=== PATIENT | female | born 1950 | race Caucasian/White ===

== ENCOUNTER 2017-02-12 14:50 | Inpatient (IN) | payer MEDICARE ==
[~2017-02-12] VITALS: Ht 162.6 cm; Wt 70.4 kg
[2017-02-12 15:23] VITALS: BP 157/72; PULSE 91; RESP 18; TEMP 98.9; O2SAT 82
[2017-02-12] MEDS ORDERED: SODIUM CHLORIDE 0.9% FLUSH 10 ML FLUSH IVF PRN (15:45)
[2017-02-12] MEDS ORDERED: DAPT500P IV (15:49)
[2017-02-12] MEDS ORDERED: MAPA325T PO (15:49)
[2017-02-12] MEDS ORDERED: CEFE2INJ2 IV (15:49)
[2017-02-12] MEDS ORDERED: GABA600T PO (15:49)
[2017-02-12] MEDS ORDERED: FURO20TA PO (15:49)
[2017-02-12] MEDS ORDERED: ATOR40TA16 PO (15:49)
[2017-02-12] MEDS ORDERED: CIPR500T2 PO (15:49)
[2017-02-12] MEDS ORDERED: ASPI-516 CHEW (15:49)
[2017-02-12] MEDS ORDERED: AMLO5TAB2 PO (15:49)
[2017-02-12] MEDS ORDERED: CLOP75TA PO (15:49)
[2017-02-12] MEDS ORDERED: LEVEMIR SQ (15:53)
[2017-02-12] MEDS ORDERED: METO100T PO (15:53)
[2017-02-12] MEDS ORDERED: HYDR-3801 PO (15:53)
[2017-02-12] MEDS ORDERED: IPRASOL INH (15:53)
[2017-02-12] MEDS ORDERED: HUMALOG SQ (15:53)
[2017-02-12] MEDS ORDERED: RESP: ALBUTEROL 2.5 MG/IPRATROPIUM 0.5 MG NEB (SCH) NEB ONE (16:00)
[2017-02-12] MEDS ORDERED: INSULIN HUMAN REGULAR 1,000 UNITS/10 ML VIAL SQ ONE (16:15)
[2017-02-12 16:30] LABS: AUTOMATED NEUTROPHIL # 6.8 TH/MM3 (1.8-7.7); BASOPHIL # 0.1 TH/MM3 (0-0.2); BASOPHIL % 0.7 % (0.0-2.0); EOSINOPHIL # 0.4 TH/MM3 (0-0.4); EOSINOPHIL % 4.5 % (0.0-4.0); HEMATOCRIT 28.4 % (35.0-46.0); HEMO FLAGS DIFF FINAL; LYMPH % 7.9 % (9.0-44.0); LYMPHOCYTE # 0.7 TH/MM3 (1.0-4.8); MEAN CELL VOLUME 86.6 FL (80.0-100.0); MEAN CORPUSCULAR HEMOGLOBIN 27.1 PG (27.0-34.0); MEAN CORPUSCULAR HGB CONC 31.3 % (32.0-36.0); MONO % 9.6 % (0.0-8.0); NEUT % 77.3 % (16.0-70.0); PLATELET COUNT 189 TH/MM3 (150-450); RED BLOOD COUNT 3.28 MIL/MM3 (4.00-5.30); WHITE BLOOD COUNT 8.8 TH/MM3 (4.0-11.0)
--- NOTE | 2017-02-12 16:42 | PD ---
HPI Chief Complaint: Psychiatric Symptoms Time Seen by Provider: 15:00 Travel History International Travel<30 days: No Contact w/Intl Traveler<30days: No Traveled to known affect area: No History of Present Illness HPI 66-year-old female presents to the emergency room from [facility] via ambulance for evaluation of suicidal ideation. Patient is Martiniquais speaking and pairer was used. According to report, patient has had increasing depressed mood and suicidal ideation. Patient denies suicidal or homicidal ideation. Initially states she has been depressed because she misses her who 3 years ago. Patient then states her chief complaint is shortness of breath. She is noted to be 74% on room air on arrival. She has slight increased work of breathing. Reports mild nonproductive cough that has been ongoing for unspecified amount of time. States she has bilateral leg pain from chronic diabetic ulcers which are being treated with IV medications at her facility. She denies chest pain, abdominal pain, or any other symptoms at this time. Paperwork she presents with shows that she was just seen at another facility 6 days ago and had a complete workup for altered mental status. There are physician orders from the doctor at her assisted living facility that states she should come to [place] for a psych eval in order to manage her psychiatric medications. Patient's nursing facility was called and simply stated that she was sent to the emergency room for suicidal ideation. PFSH Past Medical History Anemia: Yes Depression: Yes Chest Pain: Yes Coronary Artery Disease: Yes Diabetes: Yes Patient Takes Glucophage: No Medical other: Yes (osteomyelitis) Musculoskeletal: Yes (charcot's joint r ankle) Tetanus Vaccination: Unknown ?: Not Past Surgical History Surgical History: Unable to Obtain Social History Alcohol Use: No Tobacco Use: No Substance Use: No Allergies-Medications (Allergen,Severity, Reaction): Coded Allergies: No Known Allergies (Unverified , 02/12/17) Reported Meds & Prescriptions Reported Meds & Active Scripts Active Reported Metoprolol Tartrate 100 Mg Tab 100 Mg PO DAILY Duoneb (Ipratropium-Albuterol Neb) 0.5-2.5 Mg/3 Ml Neb 1 Nebule INH Q8HR NEB Levemir Inj (Insulin Detemir) 1,000 unit/ 10 ML Vial 12 Units SQ HS Do not mix with any other Insulin. Hydralazine (Hydralazine HCl) 100 Mg Tab 100 Mg PO TID Take with meals Humalog Inj (Insulin Human Lispro) 1,000 Unit/10 Ml Vial 1-9 Units SQ ACHS Max dose at bedtime:( )units; sugars< 70,(0)units; sugars 150-199,(1)unit; sugars 200-249,(3)units; sugars 250-299,(5)units; sugars 300-349,(7)units; sugars more than 349,(9)units. Gabapentin 600 Mg Tab 600 Mg PO TID Furosemide 20 Mg Tab 20 Mg PO DAILY Cubicin Inj (Daptomycin) 500 Mg Bag 500 Mg IV Q24H Must dilute in appropriate IV Fluid prior to administration Clopidogrel (Clopidogrel Bisulfate) 75 Mg Tab 75 Mg PO DAILY Ciprofloxacin (Ciprofloxacin HCl) 500 Mg Tab 500 Mg PO BID Cefepime Inj (Cefepime HCl) 2 Gm/100 Ml Bagp 2 Gm IV Q12H Atorvastatin (Atorvastatin Calcium) 40 Mg Tab 40 Mg PO HS Aspirin 81 Mg Chew 81 Mg CHEW DAILY Amlodipine (Amlodipine Besylate) 5 Mg Tab 5 Mg PO DAILY Mapap (Acetaminophen) 325 Mg Tab 650 Mg PO Q4-6H PRN Review of Systems Except as stated in HPI: all other systems reviewed are Neg Physical Exam Narrative GENERAL: Well-nourished, ill-appearing, elderly female in no acute distress. Afebrile. Ambulatory. SKIN: Focused skin assessment warm/dry. Chronic foot ulcers on the plantar aspects of bilateral heels. HEAD: Normocephalic. EYES: No scleral icterus. No injection or drainage. NECK: Supple, trachea midline. No JVD or lymphadenopathy. CARDIOVASCULAR: Regular rate and rhythm without murmurs, gallops, or rubs. RESPIRATORY: Breath sounds equal bilaterally. No accessory muscle use. Distant lung sounds but no crackles, rales, wheezes, or rhonchi. Mild increased work of breathing. GASTROINTESTINAL: Abdomen soft, non-tender, nondistended. Data Data Last Documented VS Vital Signs Date Time Temp Pulse Resp B/P (MAP) Pulse Ox O2 Delivery O2 Flow Rate FiO2 02/12/17 17:30 89 14 156/78 (104) 98 Nasal Cannula 2.00 02/12/17 15:23 98.9 Orders Orders Complete Blood Count With Diff (02/12/17 15:44) Comprehensive Metabolic Panel (02/12/17 15:44) B-Type Natriuretic Peptide (02/12/17 15:44) Act Partial Throm Time (Ptt) (02/12/17 15:44) Prothrombin Time / Inr (Pt) (02/12/17 15:44) Ckmb (Isoenzyme) Profile (02/12/17 15:44) Troponin I (02/12/17 15:44) Arterial Blood Gas (Abg) (02/12/17 15:44) Blood Culture (02/12/17 15:44) Iv Access Insert/Monitor (02/12/17:44) Electrocardiogram (02/12/17 15:44) Ecg Monitoring (02/12/17 15:44) Oximetry (02/12/17:44) Oxygen Administration (02/12/17:44) Chest, Pa & Lat (02/12/17 15:44) Sodium Chloride 0.9% Flush (Ns Flush) (02/12/17 15:45) Lactic Acid (02/12/17 15:51) Albuterol-Ipratropium Neb (Duoneb Neb) (02/12/17 16:00) Insulin Human Regular Inj (Novolin R Inj (02/12/17 16:15) Ct Pulmonary Angiogram (02/12/17 16:10) Psych Screen (02/12/17 16:36) Iohexol 350 Inj (Omnipaque 350 Inj) (02/12/17 17:39) Furosemide Inj (Lasix Inj) (02/12/17 18:15) Labs Laboratory Tests Test 02/12/17 16:00 02/12/17 16:15 02/12/17 16:42 White Blood Count 8.8 TH/MM3 Red Blood Count 3.28 MIL/MM3 Hemoglobin 8.9 GM/DL Hematocrit 28.4 % Mean Corpuscular Volume 86.6 FL Mean Corpuscular Hemoglobin 27.1 PG Mean Corpuscular Hemoglobin Concent 31.3 % Red Cell Distribution Width 20.0 % Platelet Count 189 TH/MM3 Mean Platelet Volume 7.4 FL Neutrophils (%) (Auto) 77.3 % Lymphocytes (%) (Auto) 7.9 % Monocytes (%) (Auto) 9.6 % Eosinophils (%) (Auto) 4.5 % Basophils (%) (Auto) 0.7 % Neutrophils # (Auto) 6.8 TH/MM3 Lymphocytes # (Auto) 0.7 TH/MM3 Monocytes # (Auto) 0.8 TH/MM3 Eosinophils # (Auto) 0.4 TH/MM3 Basophils # (Auto) 0.1 TH/MM3 CBC Comment DIFF FINAL Differential Comment Prothrombin Time 12.1 SEC Prothromb Time International Ratio 1.1 RATIO Activated Partial Thromboplast Time 24.7 SEC Blood Urea Nitrogen 30 MG/DL Creatinine 1.11 MG/DL Random Glucose 343 MG/DL Total Protein 7.3 GM/DL Albumin 2.4 GM/DL Calcium Level 7.9 MG/DL Alkaline Phosphatase 72 U/L Aspartate Amino Transf (AST/SGOT) 22 U/L Alanine Aminotransferase (ALT/SGPT) 20 U/L Total Bilirubin 0.2 MG/DL Sodium Level 139 MEQ/L Potassium Level 3.8 MEQ/L Chloride Level 101 MEQ/L Carbon Dioxide Level 34.2 MEQ/L Anion Gap 4 MEQ/L Estimat Glomerular Filtration Rate 49 ML/MIN Total Creatine Kinase 53 U/L Troponin I LESS THAN 0.02 NG/ML B-Type Natriuretic Peptide 284 PG/ML Lactic Acid Level 0.9 mmol/L Blood Gas Puncture Site RT BRACHIAL Blood Gas Patient Temperature 98.6 Blood Gas HCO3 33 mmol/L Blood Gas Base Excess 7.3 mmol/L Blood Gas Oxygen Saturation 97 % Arterial Blood pH 7.35 Arterial Blood Partial Pressure CO2 62 mmHg Arterial Blood Partial Pressure O2 164 mmHG Arterial Blood Oxygen Content 12.3 Vol % Arterial Blood Carboxyhemoglobin 2.1 % Arterial Blood Methemoglobin 0.6 % Blood Gas Hemoglobin 8.8 G/DL Oxygen Delivery Device NASAL CANNULA Blood Gas Liter Flow 4 L/M MDM Medical Decision Making Medical Screen Exam Complete: Yes Emergency Medical Condition: Yes Medical Record Reviewed: Yes Differential Diagnosis Psychiatric, depression, influenza, pneumonia, pulmonary embolism Narrative Course 66-year-old female with multiple chronic medical problems including CHF, diabetes, PVD, CAD, and bilateral foot ulcers with osteomyelitis presents to the emergency room from her halfway facility for suicidal ideation. Patient is primarily Martiniquais speaking and pairer was used. Initially patient denied any suicidal or homicidal ideation. Facility was called to confirm reason for transfer and physician orders were found that the "psychological evaluation and treatment for stabilization a depressed mood. Psychiatric med management is required." Second order states "send to [facility] for psych eval." Patient's chief complaint is shortness of breath. Denies any chronic lung disease. Patient was noted to be 74% on room air with increased work of breathing. Lung sounds were distant without any crackles, rales, wheezes, or rhonchi. Patient was placed on 2 L of oxygen and oxygen came up to 97%. At this time shortness of breath workup was initiated. Shortly afterward, it was discovered the patient was admitted for 6 days for pneumonia and CHF exacerbation. She was treated for both and discharged. CBC shows anemia with hemoglobin of 8.9 which is slightly decreased from hemoglobin drawn on 02/05 that was 9.2. CMP is essentially unremarkable. BNP is elevated at 284 which is significantly decreased from previous of 4000 drawn on 02/05. Lactic acid normal. Troponin is less than 0.02. EKG shows sinus rhythm with a rate of 89 bpm, no ST changes. Vital signs as been stable. Chest x-ray shows moderate congestive failure. CT pulmonary angiogram shows no PE. CT pulmonary angiogram taken on 02/06 shows similar findings to the one today. She also had CT of the brain on 02/05 and 02/06 which were both negative. At this time I see no indication for readmission to the hospital. After breathing treatments, oxygen administration, and Lasix, patient appears much comfortable and is resting. Though she denies suicidal or homicidal ideation, psych eval was ordered per physician request. Patient is medically cleared for psychiatric evaluation at this time. Condition: Stable Nae Champion Feb 12, 2017 16:42
[2017-02-12 16:45] LABS: APTT (PATIENT) 24.7 SEC (24.3-30.1); INTERNATIONAL NORMALIZED RATIO 1.1 RATIO; PROTHROMBIN TIME - PATIENT 12.1 SEC (9.8-11.6)
[2017-02-12 16:50] LABS: BLOOD GAS BASE EXCESS 7.3 mmol/L (-2-2); BLOOD GAS CARBOXYHEMOGLOBIN 2.1 % (0-4); BLOOD GAS HCO3 33 mmol/L (22-26); BLOOD GAS METHEMOGLOBIN 0.6 % (0-2); BLOOD GAS O2 HGB SATURATION 97 % (90-100); BLOOD GAS OXYGEN CONTENT 12.3 Vol % (12.0-20.0); BLOOD GAS PCO2 62 mmHg (38-42); BLOOD GAS PO2 164 mmHG (61-120); BLOOD GAS TOTAL HGB 8.8 G/DL (12.0-16.0); CRITICAL VALUE YES; TEMP CORR TO 98.6
[2017-02-12 16:50] LABS: ALT (GPT) 20 U/L (10-53); ANION GAP 4 MEQ/L (5-15); AST (GOT) 22 U/L (15-37); BICARBONATE 34.2 MEQ/L (21.0-32.0); BLOOD UREA NITROGEN 30 MG/DL (7-18); CHLORIDE 101 MEQ/L (98-107); GLOMERULAR FILTRATION RATE 49 ML/MIN (>89); POTASSIUM 3.8 MEQ/L (3.5-5.1); SODIUM (NA) 139 MEQ/L (136-145)
[2017-02-12 16:51] LABS: DRAW SITE RT BRACHIAL; LITER FLOW 4 L/M; NUMBER OF ARTERIAL PUNCTURES 1; OXYGEN DEVICE NASAL CANNULA; STAT YES; ULNAR PULSE PRESENT
[2017-02-12 16:54] LABS: ALKALINE PHOSPHATASE 72 U/L (45-117); TOTAL BILIRUBIN ADULT 0.2 MG/DL (0.2-1.0)
[2017-02-12 16:59] VITALS: O2SAT 100
[2017-02-12 16:59] LABS: CREATINE KINASE 53 U/L (26-192)
--- NOTE | 2017-02-12 17:17 | RADRPT ---
EXAM DATE/TIME: 02/12/2017 17:08 [facility] COMPARISON: No previous studies available for comparison. INDICATIONS : Shortness of breath. MEDICAL HISTORY : Unobtainable. SURGICAL HISTORY : Unobtainable. ENCOUNTER: Initial ACUITY: 1 day PAIN SCORE: Non-responsive. LOCATION: chest FINDINGS: Sternal wires and previous bypass are noted. PICC line in good position. Heart is enlarged with mil d to moderate interstitial edema. The portion of the bony skeleton visualized is unremarkable. CONCLUSION: Moderate congestive failure. gA Del Toro MD FACR on February 12, 2017 at 17:14 Board Certified Radiologist. This report was verified electronically.
[2017-02-12 17:30] VITALS: BP 156/78; PULSE 89; RESP 14; O2SAT 98
[2017-02-12] MEDS ORDERED: IOHEXOL 350 MG/ML 10 ML VIAL (for RAD DIAG) IVCONTRAST ONE (17:39)
--- NOTE | 2017-02-12 17:58 | RADRPT ---
EXAM DATE/TIME: 02/12/2017 17:39 [facility] COMPARISON: No previous studies available for comparison. INDICATIONS : Embolism; Chest pain. IV CONTRAST: 75 cc Omnipaque 350 (iohexol) IV RADIATION DOSE: 23.00 CTDIvol (mGy) MEDICAL HISTORY : Charcots; Diabetes; Sucidal thoughts.Coronary artery disease. SURGICAL HISTORY : None. ENCOUNTER: Initial ACUITY: 1 day PAIN SCALE: 4/10 LOCATION: chest TECHNIQUE: Volumetric scanning of the chest was performed using a pulmonary embolism protocol MIP images were re constructed. Using automated exposure control and adjustment of the mA and/or kV according to patien t size, radiation dose was kept as low as reasonably achievable to obtain optimal diagnostic quality images. DICOM format image data is available electronically for review and comparison. Follow-up recommendations for detected pulmonary nodules are based at a minimum on nodule size and pa tient risk factors according to Fleischner Society Guidelines. FINDINGS: PULMONARY ARTERIES: No filling defects are seen in the pulmonary arteries through the segmental level. LUNGS: Bilateral consolidations. These are scattered throughout the upper and lower lobes. No significant co nsolidation involves the right upper lobe. No appreciable bronchiectasis. PLEURAE: Small right and tiny left pleural effusions. MEDIASTINUM: A heart mildly enlarged. Aorta and pulmonary arteries are normal in caliber. Significant coronary art patricia atherosclerotic calcifications. Scattered mild lymphadenopathy involving the anterior mediastinum . The largest lymph node is precarinal in location measuring 1.7 x 1.4 cm. MUSCULOSKELETAL: Within normal limits for patient age. MISCELLANEOUS: The visualized upper abdominal organs demonstrate no acute abnormality. CONCLUSION: 1. No pulmonary embolus. 2. Bilateral pulmonary infiltrates. 3. Mediastinal adenopathy likely reactive in nature. 4. Bilateral pleural effusions. 5. Cardiomegaly. 6. Significant coronary artery atherosclerotic calcifications. Uzair Duran Jr., MD on February 12, 2017 at 17:52 Board Certified Radiologist. This report was verified electronically.
[2017-02-12] MEDS ORDERED: FUROSEMIDE 40 MG/4 ML VIAL IV PUSH ONE (18:15)
[2017-02-12 19:16] VITALS: BP 118/57; PULSE 94; RESP 18; O2SAT 99
[2017-02-13 00:30] VITALS: BP 167/82; PULSE 80; RESP 16; O2SAT 100
[2017-02-13 04:37] VITALS: BP 165/82; PULSE 86; RESP 16; O2SAT 100
[2017-02-13 07:58] VITALS: BP 156/70; PULSE 79; RESP 23; O2SAT 99
[2017-02-13] MEDS ORDERED: ACETAMINOPHEN 325 MG TAB PO PRN (11:00)
[2017-02-13 11:15] VITALS: BP 160/73; PULSE 90; RESP 17; TEMP 98.3; O2SAT 96
--- NOTE | 2017-02-13 11:17 | HHI.HP ---
Provisional Diagnosis Admission Date [place]. Unspecified psychosis, dementia with behavioral disturbances, history of major depressive disorder [place] II. Deferred [place] III. Diabetes, CHF, cellulitis [place] IV. Multiple chronic medical conditions [place] V. 35 Certification of Person's Competence To Provide Express and Informed Consent I have personally examined Josefina Loza , a person being served at [facility] on, Feb 13, 2017 10:56. Express and informed consent means consent voluntarily given in writing, by a competent person, after sufficient explanation and disclosure of the subject matter involved to enable the person to make a knowing and willful decision without any element of force, fraud, deceit, duress, or other form of constraint or coercion. This person is 18 years of age or older, is not now known to be incompetent to consent to treatment with a guardian advocate, and does not have a health care surrogate or proxy currently making medical treatment decisions. I have found this person to be one of the following: [] Competent to provide express and informed consent, as defined above, for voluntary admission to this facility and is competent to provide express and informed consent for treatment. He/she has the consistent capacity to make well reasoned, willful, and knowing decisions concerning his or her medical or mental health treatment. The person fully and consistently understands the purpose of the admission for examination/placement and is fully capable of personally exercising all rights assured [place] [X] Incompetent to provide express and informed consent to voluntary admission, and this is incompetent to provide express and informed consent to treatment. The person must be transferred to involuntary status and a petition for a guardian advocate filed with the Circuit Court. [] Refusing to provide express and informed consent to voluntary admission but is competent to provide express and informed consent for treatment. The person must be discharged or transferred to involuntary status. Form shall be completed within 24 hours of a person's arrival at the receiving facility and filed in the clinical record of each person: 1. Admitted on a voluntary basis 2. Permitted to provide express and informed consent to his/her own treatment 3. Allowed to transfer from involuntary to voluntary status 4. Prior to permitting a person to consent to his or her own treatment after having been previously found incompetent to consent to treatment. History of Present Illness Capacity: Lacks Capacity HPI The patient is a 66-year-old [place] woman, domiciled in SNF [place], , supported by Social Security, with psychiatric history of schizophrenia, depression, no previous psychiatric hospitalizations, no previous suicidal attempts, she has been Zoloft in the past, extensive medical history of CHF, diabetes, hypertension, who presents to the emergency room from SNF via ambulance for evaluation of suicidal ideation. Patient is [place] Zeal[place] speaking only she was interviewed in primary language. According to report, patient has had increasing depressed mood and suicidal ideation. Patient denies suicidal or homicidal ideation. Initially states she has been depressed because she misses her who 3 years ago. Patient then states her chief complaint is shortness of breath. She is noted to be 74% on room air on arrival. She has slight increased work of breathing. Reports mild nonproductive cough that has been ongoing for unspecified amount of time. States she has bilateral leg pain from chronic diabetic ulcers which are being treated with IV medications at her facility. She denies chest pain, abdominal pain, or any other symptoms at this time. Paperwork she presents with shows that she was just seen at another facility 6 days ago and had a complete workup for altered mental status. There are physician orders from the doctor at her assisted living facility that states she should come to [facility] for a psych eval in order to manage her psychiatric medications. Patient's nursing facility was called and simply stated that she was sent to the emergency room for suicidal ideation. On psychiatric evaluation today the patient is found sleeping, but easily arousable. The patient states that she feels okay, she does not know the reason of her hospitalization. Patient is confused, disoriented, she says that she is in [facility] in her house. Patient is disoriented also in time, she says that the vice president media relations is Ilan. She reports good mood, she denies depressive symptoms, she denies anxiety, she denies suicidal and homicidal ideation, she denies visual and auditory hallucinations. Patient says that she is not crazy "my son is the one who is crazy, and my daughter is even more crazy". Patient denies the use of alcohol and illicit drugs. Collateral information from her son Pedrito, was obtained. He says that the problem with his mother is that she has been depressed in the last months, as been episodically endorsing suicidal ideation and becoming agitated and even physically aggressive in her group home. He says that since patient's about 2 years ago the patient has been experiencing episodic depression, with isolation, lack of motivation, poor sleep, and frequent suicidal ideation. He says that his mother baseline could be very manipulative he understand that sometimes she uses suicidal ideation in order to get attention. However, at the same time he is convinced that his mother is depressed and needs psychiatric attention. Review of Systems Constitutional: DENIES: Diaphoretic episodes, Fatigue, Fever, Weight gain, Weight loss, Chills, Dizziness, Change in appetite, Night Sweats Endocrine: DENIES: Abnorml menstrual pattern, Heat/cold intolerance, Polydipsia , Polyuria, Polyphagia Eyes: DENIES: Blurred vision, Diplopia, Eye inflammation, Eye pain, Vision loss , Photosensitivity, Double Vision Ears, nose, mouth, throat: DENIES: Tinnitus, Hearing loss, Vertigo, Nasal discharge, Oral lesions, Throat pain, Hoarseness, Ear Pain, Running Nose, Epistaxis, Sinus Pain, Toothache, Odynophagia Respiratory: DENIES: Apneas, Cough, Snoring, Wheezing, Hemoptysis, Sputum production, Shortness of breath Cardiovascular: DENIES: Chest pain, Palpitations, Syncope, Dyspnea on Exertion , PND, Lower Extremity Edema, Orthopnea, Claudication Gastrointestinal: DENIES: Abdominal pain, Black stools, Bloody stools, Constipation, Diarrhea, Nausea, Vomiting, Difficulty Swallowing, Anorexia Genitourinary: DENIES: Abnormal vaginal bleeding, Dysmenorrhea, Dyspareunia, Sexual dysfunction, Urinary frequency, Urinary incontinence, Urgency, Hematuria , Dysuria, Nocturia, Vaginal discharge Musculoskeletal: DENIES: Joint pain, Muscle aches, Stiffness, Joint Swelling, Back pain, Neck pain Integumentary: DENIES: Abnormal pigmentation, Pruritus, Rash, Nail changes, Breast masses, Breast skin changes, Nipple discharge Hematologic/lymphatic: DENIES: Bruising, Lymphadenopathy Immunologic/allergic: DENIES: Eczema, Urticaria Neurologic: DENIES: Abnormal gait, Headache, Localized weakness, Paresthesias, Seizures, Speech Problems, Tremor, Poor Balance Psychiatric: COMPLAINS OF: Confusion, DENIES: Anxiety, Mood changes, Depression , Hallucinations, Agitation, Suicidal Ideation, Homicidal Ideation, Delusions Past Psych History Violence risk - self (6 mos) Increased Substance Abuse History Drugs/Alcohol past 12 months Patient denies the use of alcohol and illicit drugs Past Family Social History Coded Allergies: No Known Allergies (Unverified , 02/12/17) Reported Medications Metoprolol Tartrate (Metoprolol Tartrate) 100 Mg Tab, 100 MG PO DAILY, #30 TAB 0 Refills 02/12/17 Ipratropium-Albuterol Neb (Duoneb) 0.5-2.5 Mg/3 Ml Neb, 1 NEBULE INH Q8HR NEB for Breathing Treatment, #90 NEBULE 0 Refills 02/12/17 Insulin Detemir Inj (Levemir Inj) 1,000 unit/ 10 ML Vial, 12 UNITS SQ HS for Blood Sugar Management, VIAL 0 Refills Do not mix with any other Insulin. 02/12/17 Hydralazine (Hydralazine) 100 Mg Tab, 100 MG PO TID for Blood Pressure Management, TAB 0 Refills Take with meals 02/12/17 Insulin Lispro (Human) Inj (Humalog Inj) 1,000 Unit/10 Ml Vial, 1-9 UNITS SQ ACHS for Blood Sugar Management, #1 VIAL 0 Refills Max dose at bedtime:( )units; sugars< 70,(0)units; sugars 150-199,(1)unit; sugars 200-249,(3)units; sugars 250-299,(5)units; sugars 300-349,(7)units; sugars more than 349,(9)units. 02/12/17 Gabapentin (Gabapentin) 600 Mg Tab, 600 MG PO TID, #90 TAB 0 Refills 02/12/17 Furosemide (Furosemide) 20 Mg Tab, 20 MG PO DAILY, #30 TAB 0 Refills 02/12/17 Daptomycin Inj (Cubicin Inj) 500 Mg Bag, 500 MG IV Q24H for Infection, BAG 0 Refills Must dilute in appropriate IV Fluid prior to administration 02/12/17 Clopidogrel (Clopidogrel) 75 Mg Tab, 75 MG PO DAILY for Blood Clot Prevention, # 30 TAB 0 Refills 02/12/17 Ciprofloxacin (Ciprofloxacin) 500 Mg Tab, 500 MG PO BID for Infection, TAB 0 Refills 02/12/17 Cefepime Inj (Cefepime Inj) 2 Gm/100 Ml Bagp, 2 GM IV Q12H for Infection, BAG 0 Refills 02/12/17 Atorvastatin (Atorvastatin) 40 Mg Tab, 40 MG PO HS for Cholesterol Management, # 30 TAB 0 Refills 02/12/17 Aspirin (Aspirin) 81 Mg Chew, 81 MG CHEW DAILY, TAB 0 Refills 02/12/17 Amlodipine (Amlodipine) 5 Mg Tab, 5 MG PO DAILY for Blood Pressure Management, # 30 TAB 0 Refills 02/12/17 Acetaminophen (Mapap) 325 Mg Tab, 650 MG PO Q4-6H Y for PAIN 1 TO 10 AND/OR AGITATION, TAB 0 Refills 02/12/17 Current Medications Medications (Trade) Dose Ordered Sig/Fátima Route Start Time Stop Time Status Last Admin (NS Flush) 2 ml UNSCH PRN IVF 02/12/17 15:45 (Tylenol) 650 mg Q12HR PRN PO 02/13/17 11:00 UNV (Norvasc) 5 mg DAILY PO 02/13/17 11:00 UNV (Aspirin Chew) 81 mg DAILY CHEW 02/13/17 11:00 UNV (Lipitor) 40 mg HS PO 02/13/17 21:00 UNV (Plavix) 75 mg DAILY PO 02/13/17 11:00 UNV (Neurontin) 600 mg TID PO 02/13/17 13:00 UNV (Apresoline) 100 mg TID PO 02/13/17 13:00 UNV (Lopressor) 100 mg DAILY PO 02/13/17 11:00 UNV Family Psych History Patient has a brother and a sister with bipolar disorder Social History Patient was born and raised in [place], she lives in a group home in [facility], she is , mother of 2 kids, supported by Social Security Physical Exam No withdrawal, no EPS, no tremors, no parkinsonism, no psychomotor agitation or retardation at this moment Vital Signs Vital Signs Date Time Temp Pulse Resp B/P (MAP) Pulse Ox O2 Delivery O2 Flow Rate FiO2 02/13/17 07:58 79 23 156/70 (98) 99 Nasal Cannula 2.00 02/12/17 15:23 98.9 I/O 02/13/17 02/13/17 02/14/17 08:00 16:00 00:00 Intake Total 480 ml Balance 480 ml Lab Results Test 02/12/17 16:00 02/12/17 16:15 02/12/17 16:42 White Blood Count 8.8 TH/MM3 Red Blood Count 3.28 MIL/MM3 Hemoglobin 8.9 GM/DL Hematocrit 28.4 % Mean Corpuscular Volume 86.6 FL Mean Corpuscular Hemoglobin 27.1 PG Mean Corpuscular Hemoglobin Concent 31.3 % Red Cell Distribution Width 20.0 % Platelet Count 189 TH/MM3 Mean Platelet Volume 7.4 FL Neutrophils (%) (Auto) 77.3 % Lymphocytes (%) (Auto) 7.9 % Monocytes (%) (Auto) 9.6 % Eosinophils (%) (Auto) 4.5 % Basophils (%) (Auto) 0.7 % Neutrophils # (Auto) 6.8 TH/MM3 Lymphocytes # (Auto) 0.7 TH/MM3 Monocytes # (Auto) 0.8 TH/MM3 Eosinophils # (Auto) 0.4 TH/MM3 Basophils # (Auto) 0.1 TH/MM3 CBC Comment DIFF FINAL Differential Comment Prothrombin Time 12.1 SEC Prothromb Time International Ratio 1.1 RATIO Activated Partial Thromboplast Time 24.7 SEC Blood Urea Nitrogen 30 MG/DL Creatinine 1.11 MG/DL Random Glucose 343 MG/DL Total Protein 7.3 GM/DL Albumin 2.4 GM/DL Calcium Level 7.9 MG/DL Alkaline Phosphatase 72 U/L Aspartate Amino Transf (AST/SGOT) 22 U/L Alanine Aminotransferase (ALT/SGPT) 20 U/L Total Bilirubin 0.2 MG/DL Sodium Level 139 MEQ/L Potassium Level 3.8 MEQ/L Chloride Level 101 MEQ/L Carbon Dioxide Level 34.2 MEQ/L Anion Gap 4 MEQ/L Estimat Glomerular Filtration Rate 49 ML/MIN Total Creatine Kinase 53 U/L Troponin I LESS THAN 0.02 NG/ML B-Type Natriuretic Peptide 284 PG/ML Lactic Acid Level 0.9 mmol/L Blood Gas Puncture Site RT BRACHIAL Blood Gas Patient Temperature 98.6 Blood Gas HCO3 33 mmol/L Blood Gas Base Excess 7.3 mmol/L Blood Gas Oxygen Saturation 97 % Arterial Blood pH 7.35 Arterial Blood Partial Pressure CO2 62 mmHg Arterial Blood Partial Pressure O2 164 mmHG Arterial Blood Oxygen Content 12.3 Vol % Arterial Blood Carboxyhemoglobin 2.1 % Arterial Blood Methemoglobin 0.6 % Blood Gas Hemoglobin 8.8 G/DL Oxygen Delivery Device NASAL CANNULA Blood Gas Liter Flow 4 L/M Date/Time Source Procedure Growth Status 02/12/17 16:15 Blood Peripheral Aerobic Blood Culture Pending Received 02/12/17 16:15 Blood Peripheral Anaerobic Blood Culture Pending Received Mental Status Examination Appearance: Appropriate Consciousness: Alert Orientation: Person Motor Activity: Normal gait Speech: Unremarkable Language: Adequate Fund of Knowledge: Adequate Attention and Concentration: Adequate Memory: Impaired Mood: Sad, Oppositional Affect: Irritable Thought Process & Associations: Loose associations, Disorganized Thought Content: Bizarre thinking Hallucination Type: None Delusion Type: None Suicidal Ideation: Yes Suicidal Plan: No Suicidal Intention: No Homicidal Ideation: No Homicidal Plan: No Homicidal Intention: No Insight: Adequate Judgment: Adequate Assessment & Plan Problem List: (1) Unspecified psychosis ICD Codes: F29 - Unspecified psychosis not due to a substance or known physiological condition Assessment & Plan: On psychiatric evaluation today the patient is no very cooperative, she is confused, disoriented, denying psychiatric symptoms, suicidal ideation, homicidal ideation, visual or auditory hallucinations. She is alert, disoriented in time and place, but no fluctuation of consciousness, no attention deficit present which is to be congruent with ongoing process of dementia. As per collateral information from her son the patient has been depressed, expressing suicidal ideation frequently, so having episodic and progressive agitation, disorganization, even aggressive behavior at her group home. As per ER report, patient has been talking to herself, internally stimulated, but no agitated or violent. Patient will be admitted in psychiatry for stabilization and safety. We'll start a low dose of Seroquel, 12.5 mg twice a day for psychosis and agitation. Will restart all her medical medications. We consulted medicine for follow-up of medical conditions, psychiatry for second opinion. Extensive support, motivation and psychoeducation provided. Assessment & Plan Estimated LOS: Cornelio No MD Feb 13, 2017 11:17
--- NOTE | 2017-02-13 12:37 | EKG ---
Date Performed: 02/12/2017 Time Performed: 16:26:53 PTAGE: 66 years EKG: Sinus rhythm NONSPECIFIC T-WAVE ABNORMALITY BORDERLINE ECG NO PREVIOUS TRACING DOCTOR: Manfred Vega Interpretating Date/Time 02/13/2017 12:35:30
[2017-02-13] MEDS: METOPROLOL TARTRATE 100 MG TAB PO SCH (12:54)
[2017-02-13] MEDS: ASPIRIN 81 MG CHEW TAB CHEW SCH (12:56)
[2017-02-13] MEDS: hydrALAZINE HCL 100 MG TAB PO SCH ×2 (12:57→18:50)
[2017-02-13] MEDS: amLODIPine BESYLATE 5 MG TAB PO SCH (12:57)
[2017-02-13] MEDS: CLOPIDOGREL 75 MG TAB PO SCH (12:57)
[2017-02-13] MEDS: GABAPENTIN 300 MG CAP PO SCH ×2 (12:58→18:50)
[2017-02-13 18:00] VITALS: BP 150/68; PULSE 90; RESP 17; TEMP 98.7; O2SAT 97
[2017-02-13] MEDS: ATORVASTATIN 40 MG TAB PO SCH (21:00)
[2017-02-14 06:17] VITALS: BP 141/67; PULSE 95; RESP 17; TEMP 98; O2SAT 95
[2017-02-14] MEDS: hydrALAZINE HCL 100 MG TAB PO SCH ×3 (10:00→18:13)
[2017-02-14] MEDS: METOPROLOL TARTRATE 100 MG TAB PO SCH (10:00)
[2017-02-14] MEDS: CLOPIDOGREL 75 MG TAB PO SCH (10:00)
[2017-02-14] MEDS: amLODIPine BESYLATE 5 MG TAB PO SCH (10:01)
[2017-02-14] MEDS: GABAPENTIN 300 MG CAP PO SCH ×3 (10:01→18:13)
[2017-02-14] MEDS: ASPIRIN 81 MG CHEW TAB CHEW SCH (10:01)
[2017-02-14] MEDS ORDERED: LEVOFLOXACIN 750 MG TAB PO ONE (14:00)
[2017-02-14] MEDS ORDERED: BENZONATATE 100 MG CAP PO PRN (14:00)
--- NOTE | 2017-02-14 15:31 | HHI.PYPN ---
Subjective Remarks This is a request for a second opinion, admission note was reviewed and I agree with the history. Today, pt says her SI have resolved but she remains depressed. Pt describes AH telling her to hurt herself that she is able to ignore. Orientation improved to X2. Behaving well on the unit. Mental Status Examination Appearance: Appropriate Consciousness: Alert Orientation: Person Motor Activity: Normal gait Speech: Unremarkable Language: Adequate Fund of Knowledge: Adequate Attention and Concentration: Adequate Memory: Impaired Mood: Sad, Oppositional Affect: Blunt Thought Process & Associations: Loose associations, Disorganized Thought Content: Bizarre thinking Hallucination Type: Auditory (to hurt herself) Delusion Type: None Suicidal Ideation: Yes Suicidal Plan: No Suicidal Intention: No Homicidal Ideation: No Homicidal Plan: No Homicidal Intention: No Insight: Adequate Judgment: Adequate Results Labs Date/Time Source Procedure Growth Status 02/12/17 16:15 Blood Peripheral Aerobic Blood Culture - Preliminary NO GROWTH IN 2 DAYS Resulted 02/12/17 16:15 Blood Peripheral Anaerobic Blood Culture - Preliminary NO GROWTH IN 2 DAYS Resulted Vitals/IOs Vital Signs Date Time Temp Pulse Resp B/P (MAP) Pulse Ox O2 Delivery O2 Flow Rate FiO2 02/14/17 06:17 98.0 95 17 141/67 (91) 95 02/13/17 07:58 Nasal Cannula 2.00 Intake and Output 02/14/17 02/14/17 02/15/17 08:00 16:00 00:00 Intake Total 120 ml Balance 120 ml Assessment & Plan Problem List: (1) Unspecified psychosis ICD Codes: F29 - Unspecified psychosis not due to a substance or known physiological condition Assessment & Plan Increase seroquel dosing. I agree with the first opinion to continue petition, criteria include acute psychosis Justification for Cont. Inpt. Pt would decompensate in a less restrictive setting Rubio Alfaro DO Feb 14, 2017 15:31
[2017-02-14] MEDS ORDERED: CEFEPIME 2000 MG VIAL IV SCH (17:00)
[2017-02-14] MEDS ORDERED: CEFEPIME 2000 MG/NS 100 ML IV SCH ×2 (17:00)
[2017-02-14] MEDS: RESP: ALBUTEROL 2.5 MG/IPRATROPIUM 0.5 MG NEB (SCH) NEB ×2 (17:37→20:55)
[2017-02-14 17:38] VITALS: O2SAT 98
[2017-02-14] MEDS ORDERED: DAPTOmycin 500 MG VIAL IV SCH (18:00)
[2017-02-14] MEDS ORDERED: DAPTOmycin INJ 500 MG in SODIUM CHLORIDE 0.9% INJ 100 ML IV SCH (18:00)
[2017-02-14] MEDS ORDERED: AZITHROMYCIN 250 MG TAB PO ONE (18:45)
--- NOTE | 2017-02-14 19:06 | PD.CONS ---
HPI Service [facility] Consult Requested By Primary Care Physician Blu Garcia M.D. Diagnoses: History of Present Illness Bulgarian-speaking hotel services supervisor used. 66-year-old female brought in from [facility] for evaluation of suicidal ideation. History limited but refusal to participate in half of questions. She reports a productive cough going on for several weeks. She reports shortness of breath, however says that it is secondary to anxiety. She denies any chest pain. She has bilateral diabetic ulcers on her feet which are returning with IV antibiotics daptomycin and Cipro to complete 02/19. Review of Systems Attempted but unable due to patient refusing. tells me she has already been asked these questions Past Family Social History Allergies: Coded Allergies: No Known Allergies (Unverified , 02/12/17) Past Medical History Charcot joint right ankle CAD with history of CABG in the past CHF Anemia Depression Diabetes mellitus Past Surgical History History of CABG 3 Reported Medications Reported Meds & Active Scripts Active Reported Metoprolol Tartrate 100 Mg Tab 100 Mg PO DAILY Duoneb (Ipratropium-Albuterol Neb) 0.5-2.5 Mg/3 Ml Neb 1 Nebule INH Q8HR NEB Levemir Inj (Insulin Detemir) 1,000 unit/ 10 ML Vial 12 Units SQ HS Do not mix with any other Insulin. Hydralazine (Hydralazine HCl) 100 Mg Tab 100 Mg PO TID Take with meals Humalog Inj (Insulin Human Lispro) 1,000 Unit/10 Ml Vial 1-9 Units SQ ACHS Max dose at bedtime:( )units; sugars< 70,(0)units; sugars 150-199,(1)unit; sugars 200-249,(3)units; sugars 250-299,(5)units; sugars 300-349,(7)units; sugars more than 349,(9)units. Gabapentin 600 Mg Tab 600 Mg PO TID Furosemide 20 Mg Tab 20 Mg PO DAILY Cubicin Inj (Daptomycin) 500 Mg Bag 500 Mg IV Q24H Must dilute in appropriate IV Fluid prior to administration Clopidogrel (Clopidogrel Bisulfate) 75 Mg Tab 75 Mg PO DAILY Ciprofloxacin (Ciprofloxacin HCl) 500 Mg Tab 500 Mg PO BID Cefepime Inj (Cefepime HCl) 2 Gm/100 Ml Bagp 2 Gm IV Q12H Atorvastatin (Atorvastatin Calcium) 40 Mg Tab 40 Mg PO HS Aspirin 81 Mg Chew 81 Mg CHEW DAILY Amlodipine (Amlodipine Besylate) 5 Mg Tab 5 Mg PO DAILY Mapap (Acetaminophen) 325 Mg Tab 650 Mg PO Q4-6H PRN Family History Patient refuses to answer Social History No history of alcohol, tobacco, illicit drug use. Physical Exam Vital Signs Vital Signs Date Time Temp Pulse Resp B/P (MAP) Pulse Ox O2 Delivery O2 Flow Rate FiO2 02/14/17 17:38 98 Nasal Cannula 2.00 02/14/17 06:17 98.0 95 17 141/67 (91) 95 Physical Exam GENERAL: This is a well-nourished, well-developed patient, in no apparent distress. Patient is disoriented SKIN: No rashes, ecchymoses or lesions. Cool and dry. HEAD: Atraumatic. Normocephalic. No temporal or scalp tenderness. EYES: Pupils equal round and reactive. Extraocular motions intact. No scleral icterus. No injection or drainage. ENT: Nose without bleeding, purulent drainage or septal hematoma. Throat without erythema, tonsillar hypertrophy or exudate. Uvula midline. Airway patent. NECK: Trachea midline. No JVD or lymphadenopathy. Supple, nontender, no meningeal signs. CARDIOVASCULAR: Regular rate and rhythm without murmurs, gallops, or rubs. RESPIRATORY: Clear to auscultation. Breath sounds equal bilaterally. No wheezes , rales, or rhonchi. GASTROINTESTINAL: Abdomen soft, non-tender, nondistended. No hepato-splenomegaly , or palpable masses. No guarding. MUSCULOSKELETAL: Extremities without clubbing, cyanosis. . No calf tenderness. Negative Homans sign bilaterally. What appears to be a stage IV right foot diabetic foot ulcer. Minimal surrounding erythema, however/suspected. Left foot with Charcot deformity, unstageable ulcer. No surrounding erythema. NEUROLOGICAL: Awake and alert. Cranial nerves II through XII intact. Motor and sensory grossly within normal limits. Five out of 5 muscle strength in all muscle groups. Normal speech. Laboratory Date/Time Source Procedure Growth Status 02/12/17 16:15 Blood Peripheral Aerobic Blood Culture - Preliminary NO GROWTH IN 2 DAYS Resulted 02/12/17 16:15 Blood Peripheral Anaerobic Blood Culture - Preliminary NO GROWTH IN 2 DAYS Resulted Result Diagram: 02/12/17 1600 02/12/17 [address] Angiography 02/12/17 1610 Signed Impressions: Service Date/Time: Sunday, February 12, 2017 17:39 - CONCLUSION: 1. No pulmonary embolus. 2. Bilateral pulmonary infiltrates. 3. Mediastinal adenopathy likely reactive in nature. 4. Bilateral pleural effusions. 5. Cardiomegaly. 6. Significant coronary artery atherosclerotic calcifications. Uzair Duran Jr., MD Chest X-Ray 02/12/17 1544 Signed Impressions: Service Date/Time: Sunday, February 12, 2017 17:08 - CONCLUSION: Moderate congestive failure. Ag Del Toro MD FACR Assessment and Plan Assessment and Plan //Atypical pneumonia. //Hypoxic respiratory failure. Pulse oximetry 82 on room air on admission. //Possible CHF exacerbation -With productive cough -CT pulmonary angiogram with mediastinal adenopathy, bilateral pulmonary infiltrates. Duo Nebs, Azithromycin. //Hypertension. //CAD status post CABG 3 //history of CHF. Blood pressure acceptable. Continue home medications. Continue aspirin and Plavix. Continue to monitor //Diabetes mellitus type 2. -Blood sugars acceptable. Start on insulin sliding scale, diabetic diet. //Diabetic neuropathy. Due to renal sufficiency, will decrease gabapentin dose. Continue to monitor. //Hyperlipidemia. Continue home medications. //Bilateral feet with diabetic ulcers. Right worse than left. Patient is to be continued on Cipro and daptomycin until 02/19. Requesting outside records. -Continue on Levaquin and daptomycin. //Anemia. Hemoglobin 8.9. Uncertain chronicity. No signs of bleeding. Reorder labs. //Renal insufficiency. Creatinine 1.1. GFR 49 on admission. Uncertain baseline. Requesting outside records. Discussed Condition With patient, nurse Ken Pickett MD Feb 14, 2017 19:06
--- NOTE | 2017-02-14 19:22 | RADRPT ---
EXAM DATE/TIME: 02/14/2017 18:58 [facility] COMPARISON: No previous studies available for comparison. INDICATIONS : Right foot swelling. MEDICAL HISTORY : Unobtainable SURGICAL HISTORY : Unobtainable ENCOUNTER: Initial ACUITY: 2 days PAIN SCORE: Non-responsive. LOCATION: Right sore on plantar surface. FINDINGS: 3 views of the right foot demonstrate undermineralization of the bones. There is less than optimal or ientation of the foot. The Lisfranc joint appears disrupted. No acute fracture is identified. There i s abnormal orientation of the talus and calcaneus. Diffuse soft tissue swelling is present with ulcer ation along the plantar aspect superficial to the hindfoot. There is mineralization/calcification wit hin the distal leg soft tissues. CONCLUSION: 1. There is ulceration along the plantar aspect of the foot. No erosion is appreciated to suggest ost eomyelitis by plain film imaging. 2. Lisfranc joint is not well-visualized but appears disrupted. The bones are undermineralized. Daniel Reyes MD on February 14, 2017 at 19:18 Board Certified Radiologist. This report was verified electronically.
[2017-02-14 20:59] VITALS: O2SAT 98
[2017-02-14] MEDS: INSULIN DETEMIR 100 UNITS/ML VIAL SQ SCH (21:00)
[2017-02-14] MEDS: ATORVASTATIN 40 MG TAB PO SCH (21:22)
[2017-02-14] MEDS: METOPROLOL TARTRATE 50 MG TAB PO SCH (21:23)
[2017-02-14 22:28] LABS: BASOPHIL % 0.4 % (0.0-2.0); EOSINOPHIL # 0.2 TH/MM3 (0-0.4); EOSINOPHIL % 2.4 % (0.0-4.0); HEMATOCRIT 27.6 % (35.0-46.0); HEMO FLAGS DIFF FINAL; LYMPH % 9.9 % (9.0-44.0); LYMPHOCYTE # 0.7 TH/MM3 (1.0-4.8); MEAN CELL VOLUME 86.6 FL (80.0-100.0); MEAN CORPUSCULAR HEMOGLOBIN 27.5 PG (27.0-34.0); MEAN CORPUSCULAR HGB CONC 31.8 % (32.0-36.0); MONO % 8.9 % (0.0-8.0); NEUT % 78.4 % (16.0-70.0); PLATELET COUNT 178 TH/MM3 (150-450); RED BLOOD COUNT 3.19 MIL/MM3 (4.00-5.30); RED CELL DISTRIBUTION WIDTH 19.4 % (11.6-17.2); WHITE BLOOD COUNT 7.6 TH/MM3 (4.0-11.0)
[2017-02-14 22:43] LABS: ALKALINE PHOSPHATASE 93 U/L (45-117); ALT (GPT) 21 U/L (10-53); ANION GAP 6 MEQ/L (5-15); AST (GOT) 18 U/L (15-37); BICARBONATE 33.4 MEQ/L (21.0-32.0); BLOOD UREA NITROGEN 29 MG/DL (7-18); CHLORIDE 99 MEQ/L (98-107); GLOMERULAR FILTRATION RATE 52 ML/MIN (>89); POTASSIUM 4.7 MEQ/L (3.5-5.1); SODIUM (NA) 138 MEQ/L (136-145); TOTAL BILIRUBIN ADULT 0.5 MG/DL (0.2-1.0)
[2017-02-14] MEDS: QUEtiapine FUMARATE 25 MG TAB PO SCH (22:50)
[2017-02-14] MEDS ORDERED: PILL SPLITTER OTHER PRN (23:00)
[2017-02-15] MEDS ORDERED: DAPTOmycin INJ 500 MG in SODIUM CHLORIDE 0.9% INJ 100 ML IV SCH ×2
[2017-02-15 06:23] VITALS: BP 160/73; PULSE 82; RESP 17; TEMP 98; O2SAT 93
[2017-02-15 06:55] LABS: ANION GAP 6 MEQ/L (5-15); BICARBONATE 32.8 MEQ/L (21.0-32.0); BLOOD UREA NITROGEN 27 MG/DL (7-18); CHLORIDE 100 MEQ/L (98-107); GLOMERULAR FILTRATION RATE 57 ML/MIN (>89); LDL CHOLESTEROL 41 MG/DL (0-99); POTASSIUM 4.5 MEQ/L (3.5-5.1); SODIUM (NA) 139 MEQ/L (136-145)
[2017-02-15] MEDS: ASPIRIN 81 MG CHEW TAB CHEW SCH (08:47)
[2017-02-15] MEDS: hydrALAZINE HCL 100 MG TAB PO SCH ×3 (08:47→16:36)
[2017-02-15] MEDS: CLOPIDOGREL 75 MG TAB PO SCH (08:48)
[2017-02-15] MEDS: QUEtiapine FUMARATE 25 MG TAB PO SCH ×2 (08:48→21:18)
[2017-02-15] MEDS: LEVOFLOXACIN 750 MG TAB PO SCH (08:48)
[2017-02-15] MEDS: amLODIPine BESYLATE 5 MG TAB PO SCH (08:48)
[2017-02-15] MEDS: AZITHROMYCIN 250 MG TAB PO SCH (08:48)
[2017-02-15] MEDS: METOPROLOL TARTRATE 50 MG TAB PO SCH ×2 (08:48→21:18)
[2017-02-15] MEDS: GABAPENTIN 300 MG CAP PO SCH ×3 (08:48→16:36)
[2017-02-15] MEDS: INSULIN DETEMIR 100 UNITS/ML VIAL SQ SCH ×2 (08:49→21:00)
[2017-02-15] MEDS ORDERED: FUROSEMIDE 20 MG TAB PO SCH (09:00)
--- NOTE | 2017-02-15 09:01 | PD.TTN ---
Patient Problems 1. Discharge planning 2. Medication compliance 3. Knowledge deficit 4. Lack of coping skills Progress Toward Goals Provider Present: Dr. Beka Muller Provider Input: Dr. Muller reported that the patient is a new admission. Nurse(s) Present: [facility] Counselors Present: RAGHAV Hood Psych Therapist Input: Counselor reported the patient is a new admission and I will conduct biopsychosocial assessment today. Group Spec/RT/OT/LIZARRAGA Present: Margarito Ibrahim OT Group Spec/RT/OT/LIZARRAGA Input: Patient is a new admission. Discharge Plan [facility] Documentation Scribe: RAGHAV Hood Date Resolved: Feb 15, 2017 Peyton Lees Feb 15, 2017 09:01
[2017-02-15] MEDS: RESP: ALBUTEROL 2.5 MG/IPRATROPIUM 0.5 MG NEB (SCH) NEB ×3 (09:23→22:10)
[2017-02-15 09:35] VITALS: O2SAT 96
--- NOTE | 2017-02-15 09:55 | PD.CONS ---
History of Present Illness Service Infectious Disease Consult Requested By Dr Deejay Pickett Reason for Consult Evaluate patient with R foot infection, not improving Primary Care Physician Blu Garcia M.D. Diagnoses: History of Present Illness Patient seen and examined. Records reviewed. Patient is not a good historian Patient is a 66-year-old female, came from the prison, brought to [facility], for psychiatric evaluation, suicidal ideation. In the prison patient was getting IV antibiotics. It looks like she was in the prison, and was getting IV Cubicin, and oral Cipro until February 05 when she was admitted at [facility] for evaluation of shortness of breath , and altered mental status. I have very limited records from that hospitalization, but she was discharge on February 11, and she was getting IV vancomycin with plans of completing a 14 day course. She has a PICC line in the right upper extremity. There was mention that she has chronic ulcer on her right foot, and it's unclear what kind of workup she had done for that ulcer, and whether there is evidence of osteomyelitis. Patient here at [facility] has been admitted in the psychiatric unit. The medical team had ask infectious disease evaluation for the right foot ulcer. She is currently on Cubicin and cefepime. The cefepime was just discontinued today. Plain film of the right foot did not show any evidence of osteomyelitis. CT of the chest showing some pulmonary infiltrates, and on reviewing her hospitalization at [facility] , her CT at that time had shown also pulmonary infiltrates, suggestive more of congestive heart failure, and there is no evidence of pulmonary embolism. She is currently afebrile. She has some pain on her foot. She looks short of breath at the time my exam. Infectious disease consultation has been requested to evaluate the patient for the right foot ulcer. Review of Systems Constitutional: DENIES: Fever, Chills Eyes: DENIES: Eye pain Ears, nose, mouth, throat: DENIES: Oral lesions, Throat pain, Sinus Pain Respiratory: COMPLAINS OF: Cough, Shortness of breath Cardiovascular: COMPLAINS OF: Dyspnea on Exertion, DENIES: Chest pain Gastrointestinal: DENIES: Abdominal pain, Diarrhea Neurologic: DENIES: Headache Psychiatric: COMPLAINS OF: Suicidal Ideation Past Family Social History Allergies: Coded Allergies: No Known Allergies (Unverified , 02/12/17) Past Medical History Charcot joint right foot Chronic ulcer R foot CAD with history of CABG in the past CHF Anemia Depression Diabetes mellitus Past Surgical History CABG Reported Medications I attest that I obtained, updated or reviewed the home and current medications. Reported Meds & Active Scripts Active Reported Metoprolol Tartrate 100 Mg Tab 100 Mg PO DAILY Duoneb (Ipratropium-Albuterol Neb) 0.5-2.5 Mg/3 Ml Neb 1 Nebule INH Q8HR NEB Levemir Inj (Insulin Detemir) 1,000 unit/ 10 ML Vial 12 Units SQ HS Do not mix with any other Insulin. Hydralazine (Hydralazine HCl) 100 Mg Tab 100 Mg PO TID Take with meals Humalog Inj (Insulin Human Lispro) 1,000 Unit/10 Ml Vial 1-9 Units SQ ACHS Max dose at bedtime:( )units; sugars< 70,(0)units; sugars 150-199,(1)unit; sugars 200-249,(3)units; sugars 250-299,(5)units; sugars 300-349,(7)units; sugars more than 349,(9)units. Gabapentin 600 Mg Tab 600 Mg PO TID Furosemide 20 Mg Tab 20 Mg PO DAILY Cubicin Inj (Daptomycin) 500 Mg Bag 500 Mg IV Q24H Must dilute in appropriate IV Fluid prior to administration Clopidogrel (Clopidogrel Bisulfate) 75 Mg Tab 75 Mg PO DAILY Ciprofloxacin (Ciprofloxacin HCl) 500 Mg Tab 500 Mg PO BID Cefepime Inj (Cefepime HCl) 2 Gm/100 Ml Bagp 2 Gm IV Q12H Atorvastatin (Atorvastatin Calcium) 40 Mg Tab 40 Mg PO HS Aspirin 81 Mg Chew 81 Mg CHEW DAILY Amlodipine (Amlodipine Besylate) 5 Mg Tab 5 Mg PO DAILY Mapap (Acetaminophen) 325 Mg Tab 650 Mg PO Q4-6H PRN Active Ordered Medications Current Medications Medications (Trade) Dose Ordered Sig/Fátima Route Start Time Stop Time Status Last Admin (NS Flush) 2 ml UNSCH PRN IVF 02/12/17 15:45 (Tylenol) 650 mg Q12HR PRN PO 02/13/17 11:00 (Norvasc) 5 mg DAILY PO 02/13/17 11:00 02/15/17 08:48 (Aspirin Chew) 81 mg DAILY CHEW 02/13/17 11:00 02/15/17 08:47 (Lipitor) 40 mg HS PO 02/13/17 21:00 02/14/17 21:22 (Plavix) 75 mg DAILY PO 02/13/17 11:00 02/15/17 08:48 (Apresoline) 100 mg TID PO 02/13/17 13:00 02/15/17 08:47 (Levaquin) 750 mg DAILY PO 02/15/17 09:00 02/15/17 08:48 (Tessalon) 100 mg TID PRN PO 02/14/17 14:00 (Neurontin) 300 mg TID PO 02/14/17 18:00 02/15/17 08:48 (Lopressor) 50 mg BID PO 02/14/17 21:00 02/15/17 08:48 (Duoneb Neb) 1 ampule Q6HR WHILE AWAKE NEB NEB 02/14/17 14:00 02/15/17 09:23 (Levemir Inj) 5 units Q12HR SQ 02/14/17 21:00 02/15/17 08:49 (Lasix) 20 mg DAILY PO 02/15/17 09:00 02/15/17 08:48 (SEROquel) 12.5 mg BID PO 02/14/17 21:00 02/15/17 08:48 (Zithromax) 250 mg DAILY PO 02/15/17 09:00 02/15/17 08:48 (Pill Splitter) 1 ea UNSCH PRN OTHER 02/14/17 23:00 Daptomycin 500 mg/ Sodium Chloride 100 ml @ 200 mls/hr Q24H IV 02/15/17 00:00 02/14/17 23:34 Family History Not known Social History No smoking No ETOH abuse No illicit drugs Came from [facility] Physical Exam Vital Signs Vital Signs Date Time Temp Pulse Resp B/P (MAP) Pulse Ox O2 Delivery O2 Flow Rate FiO2 02/15/17 09:35 96 Nasal Cannula 4.00 02/15/17 06:23 98.0 82 17 160/73 (102) 93 02/14/17 20:59 98 Nasal Cannula 2.00 02/14/17 17:38 98 Nasal Cannula 2.00 Physical Exam GENERAL: Patient is a well-nourished, well-developed female, awake and alert , looks dyspneic at rest SKIN: Cool And dry. No generalized rash, no ecchymoses and no evidence of embolic lesions. HEAD: Atraumatic. Normocephalic. No temporal wasting, or tenderness. EYES: Hendrix conjunctiva. No petechia or hemorrhage. Pupils equal, round and reactive to light. Extraocular movements full and intact. No scleral icterus. No injection or drainage. EARS, NOSE AND THROAT: Nose without bleeding or purulent nasal discharge. No sinus tenderness. Mucous membranes pink and moist. No oral lesions noted. No exudate. No oral thrush. NECK: Trachea midline. Supple and not tender, no meningeal signs CARDIOVASCULAR: Regular rate and rhythm. No murmurs, rubs or gallops heard. Sternotomy scar compatible with her surgical history. RESPIRATORY: Clear to auscultation. Breath sounds equal bilaterally. Rales at the bases. ABDOMEN: Soft, non-tender, nondistended. Bowel sounds present and normoactive. No guarding. No rebound. No organomegaly. EXTREMITIES: No clubbing, cyanosis. Has mild bilateral pedal edema. R foot , there is an ulcer on plantar aspect mid foot, it measures about 1.5 inch diameter, sclerotic border, some dark blood at base, with red tissue, no purulence, no odor, no surrounding redness. Seem to have possibly beginning Charcot deformity of R foot. L foot - there is a round area plantar aspect midfoot, but not open wound, no erythema and also has similar possibly beginning Charcot deformity. No joint effusion, has good ROM. No calf tenderness. Well perfused and warm. NEUROLOGICAL: Awake and alert. Cranial nerves grossly intact. Motor grossly within normal limits. PSYCHIATRIC: Normal affect, calm and cooperative. LINE: PICC RUE with no evidence of infection Laboratory Laboratory Tests Test 02/14/17 21:58 02/15/17 06:04 White Blood Count 7.6 Red Blood Count 3.19 Hemoglobin 8.8 Hematocrit 27.6 Mean Corpuscular Volume 86.6 Mean Corpuscular Hemoglobin 27.5 Mean Corpuscular Hemoglobin Concent 31.8 Red Cell Distribution Width 19.4 Platelet Count 178 Mean Platelet Volume 7.4 Neutrophils (%) (Auto) 78.4 Lymphocytes (%) (Auto) 9.9 Monocytes (%) (Auto) 8.9 Eosinophils (%) (Auto) 2.4 Basophils (%) (Auto) 0.4 Neutrophils # (Auto) 6.0 Lymphocytes # (Auto) 0.7 Monocytes # (Auto) 0.7 Eosinophils # (Auto) 0.2 Basophils # (Auto) 0.0 CBC Comment DIFF FINAL Differential Comment Blood Urea Nitrogen 29 27 Creatinine 1.05 0.97 Random Glucose 319 195 Total Protein 7.7 Albumin 2.6 Calcium Level 8.4 8.4 Alkaline Phosphatase 93 Aspartate Amino Transf (AST/SGOT) 18 Alanine Aminotransferase (ALT/SGPT) 21 Total Bilirubin 0.5 Sodium Level 138 139 Potassium Level 4.7 4.5 Chloride Level 99 100 Carbon Dioxide Level 33.4 32.8 Anion Gap 6 6 Estimat Glomerular Filtration Rate 52 57 Erythrocyte Sedimentation Rate 76 Triglycerides Level 63 Cholesterol Level 96 LDL Cholesterol 41 HDL Cholesterol 42.0 Cholesterol/HDL Ratio 2.28 Date/Time Source Procedure Growth Status 02/12/17 16:15 Blood Peripheral Aerobic Blood Culture - Preliminary NO GROWTH IN 2 DAYS Resulted 02/12/17 16:15 Blood Peripheral Anaerobic Blood Culture - Preliminary NO GROWTH IN 2 DAYS Resulted Result Diagram: 02/14/17 2158 02/15/17 0604 Imaging RADIOLOGY STUDIES/FILMS REVIEWED Foot X-Ray 02/14/17 0000 Signed Impressions: Service Date/Time: Tuesday, February 14, 2017 18:58 - CONCLUSION: 1. There is ulceration along the plantar aspect of the foot. No erosion is appreciated to suggest osteomyelitis by plain film imaging. 2. Lisfranc joint is not well-visualized but appears disrupted. The bones are undermineralized. Daniel Reyes MD CT Angiography 02/12/17 1610 Signed Impressions: Service Date/Time: Sunday, February 12, 2017 17:39 - CONCLUSION: 1. No pulmonary embolus. 2. Bilateral pulmonary infiltrates. 3. Mediastinal adenopathy likely reactive in nature. 4. Bilateral pleural effusions. 5. Cardiomegaly. 6. Significant coronary artery atherosclerotic calcifications. Uzair Duran Jr., MD Chest X-Ray 02/12/17 1544 Signed Impressions: Service Date/Time: Sunday, February 12, 2017 17:08 - CONCLUSION: Moderate congestive failure. Ag Del Toro MD FACR Assessment and Plan Assessment and Plan IMPRESSION R foot plantar ulcer, currently does not look infected, no cellulitis - ?result of work-up in [facility], per SNF records she was supposed to get IV vanco x 14 days - possibly begiining Charcot foot durga SOB, bilateral infiltrates, possibly CHF - was trated for PNA previously Suicidal ideation RECOMMENDATION Stop other Abx Restart IV vanco Wound care Get records from [facility] Podiatry to evaluate patient also Her R foot looks ok, no active infection seen on exam, prob had work-up in other hospital and if she is stable for D/C from psych and medicine, she can be D/C on the original plan of IV vanco per SNF and have her followup with her primary MD who has been treating her for her R foot wounds Thank you for this consultation Discussed Condition With D/W Yuli Stafford MD Feb 15, 2017 09:55
[2017-02-15] MEDS ORDERED: Vancomycin Consult Pharmacy 1 EA OTHER SCH (10:00)
[2017-02-15] MEDS ORDERED: VANCOMYCIN INJ 1,000 MG in SODIUM CHLOR 0.9% 250 ML INJ 250 ML IV ONE (10:00)
[2017-02-15] MEDS: SERTRALINE HCL 50 MG TAB PO SCH (13:30)
--- NOTE | 2017-02-15 15:13 | HHI.PYPN ---
Subjective Remarks Patient seen follow, chart reviewed. Patient is a 66-year-old [place]yan[place] woman, , unemployed, domicile with her son, with past psychiatric history of depression, dementia, schizophrenia as per chart, though psychiatric consultations, no suicide attempts with past medical history of CHF, DM, hypertension who was sent from her correction facility for increased depressive symptoms and suicidal ideation as well as confusion, disorientation, and auditory hallucinations to hurt herself. Patient was seen lying in hospital bed, cooperative. Patient states that she came to the hospital because of her infection in her foot. Patient is alert and oriented only to person, relies she is in hospital but unable to name the hospital nor the city, not oriented to date and states the president stated he states his Bill Il[place]. Patient states that she is currently feeling depressed because her prior had 3 months ago but as per chart and collateral patient's had 2-3 years ago. Patient reports having decreased sleep since passing of her , decreased appetite, energy, concentration and states that her mood has been "suffering"and that she has been having suicidal ideation "once in a while" is a passing her (last time being this morning. Patient denies any thoughts of wanting to end her life but has had thoughts of wishing not to be alive. Patient states that she misses her the other children because of her recent depression. Patient believes that she continue to live with her son at that her resistance level of her children and her grandchildren and great-grandchildren. Patient also states that she worries about her father who is a [place] when I spoke to him 3 years ago currently reports feeling "good", but continues to feel depressed, denies SI, HI, AVH or delusions at time of interview. Review of Systems Except as stated in HPI: all other systems reviewed are Neg Mental Status Examination Appearance: Appropriate Consciousness: Alert Orientation: Person Motor Activity: Normal gait Speech: Unremarkable Language: Adequate Fund of Knowledge: Adequate Attention and Concentration: Adequate Memory: Impaired Mood: Sad Affect: Blunt Thought Process & Associations: Loose associations, Linear Thought Content: Bizarre thinking Hallucination Type: Auditory (denies at this time) Delusion Type: None Suicidal Ideation: Yes (denies at this time) Suicidal Plan: No Suicidal Intention: No Homicidal Ideation: No Homicidal Plan: No Homicidal Intention: No Insight: Adequate Judgment: Adequate Results Labs Test 02/14/17 21:58 02/15/17 06:04 White Blood Count 7.6 TH/MM3 Red Blood Count 3.19 MIL/MM3 Hemoglobin 8.8 GM/DL Hematocrit 27.6 % Mean Corpuscular Volume 86.6 FL Mean Corpuscular Hemoglobin 27.5 PG Mean Corpuscular Hemoglobin Concent 31.8 % Red Cell Distribution Width 19.4 % Platelet Count 178 TH/MM3 Mean Platelet Volume 7.4 FL Neutrophils (%) (Auto) 78.4 % Lymphocytes (%) (Auto) 9.9 % Monocytes (%) (Auto) 8.9 % Eosinophils (%) (Auto) 2.4 % Basophils (%) (Auto) 0.4 % Neutrophils # (Auto) 6.0 TH/MM3 Lymphocytes # (Auto) 0.7 TH/MM3 Monocytes # (Auto) 0.7 TH/MM3 Eosinophils # (Auto) 0.2 TH/MM3 Basophils # (Auto) 0.0 TH/MM3 CBC Comment DIFF FINAL Differential Comment Blood Urea Nitrogen 29 MG/DL 27 MG/DL Creatinine 1.05 MG/DL 0.97 MG/DL Random Glucose 319 MG/DL 195 MG/DL Total Protein 7.7 GM/DL Albumin 2.6 GM/DL Calcium Level 8.4 MG/DL 8.4 MG/DL Alkaline Phosphatase 93 U/L Aspartate Amino Transf (AST/SGOT) 18 U/L Alanine Aminotransferase (ALT/SGPT) 21 U/L Total Bilirubin 0.5 MG/DL Sodium Level 138 MEQ/L 139 MEQ/L Potassium Level 4.7 MEQ/L 4.5 MEQ/L Chloride Level 99 MEQ/L 100 MEQ/L Carbon Dioxide Level 33.4 MEQ/L 32.8 MEQ/L Anion Gap 6 MEQ/L 6 MEQ/L Estimat Glomerular Filtration Rate 52 ML/MIN 57 ML/MIN Erythrocyte Sedimentation Rate 76 mm/hr Triglycerides Level 63 MG/DL Cholesterol Level 96 MG/DL LDL Cholesterol 41 MG/DL HDL Cholesterol 42.0 MG/DL Cholesterol/HDL Ratio 2.28 RATIO Date/Time Source Procedure Growth Status 02/12/17 16:15 Blood Peripheral Aerobic Blood Culture - Preliminary NO GROWTH IN 3 DAYS Resulted 02/12/17 16:15 Blood Peripheral Anaerobic Blood Culture - Preliminary NO GROWTH IN 3 DAYS Resulted Vitals/IOs Vital Signs Date Time Temp Pulse Resp B/P (MAP) Pulse Ox O2 Delivery O2 Flow Rate FiO2 02/15/17 09:35 96 Nasal Cannula 4.00 02/15/17 06:23 98.0 82 17 160/73 (102) Intake and Output 02/15/17 02/15/17 02/16/17 08:00 16:00 00:00 Intake Total 1080 ml Balance 1080 ml Assessment & Plan Problem List: (1) Unspecified psychosis ICD Codes: F29 - Unspecified psychosis not due to a substance or known physiological condition Assessment & Plan Patient noted to be confused, oriented only to person and place (hospital, not to city), not oriented to date. Patient continues to endorse depressive symptoms and thoughts of not wanting to be alive but denies any active thoughts of wanting to end her life. We'll start patient on sertraline 25 minutes by mouth daily for depression, continue quetiapine 12.5 mg by mouth twice a day for psychosis. Patient no longer endorsing any auditory hallucinations at this time. Recommendations as per primary medical team. Collateral pending from [facility]. Discharge planning in progress Justification for Cont. Inpt. At risk for further decompensation if at lower level of care Discharge Planning Patient to be discharged back to correction facility once psychiatrically stable. Hoang Muller MD Feb 15, 2017 15:12
[2017-02-15] MEDS ORDERED: GLUCAGON 1 MG/ML VIAL OTHER PRN (15:30)
[2017-02-15] MEDS ORDERED: DEXTROSE 50% IN WATER 50 ML VIAL(D50) IV PUSH PRN (15:30)
[2017-02-15 16:02] LABS: HEMOGLOBIN A1a 1.7 %; HEMOGLOBIN A1b 0.9 %; HEMOGLOBIN Ao 80.3 %; HEMOGLOBIN F 1.5 %; HEMOGLOBIN P3 6.6 %
[2017-02-15] MEDS: INSULIN ASPART SUPPLEMENTAL SCALE SQ SCH ×2 (16:36→21:20)
[2017-02-15 18:08] VITALS: BP 161/85; PULSE 83; RESP 17; TEMP 97.8; O2SAT 94
--- NOTE | 2017-02-15 18:23 | HHI.PR ---
Subjective Remarks Patient seen using filter cleaner today. Says she is feeling all right. Has no overt complaints. Denies any chest pain or shortness of breath. Denies any nausea or vomiting. Denies any pain. Objective Vital Signs Date Time Temp Pulse Resp B/P (MAP) Pulse Ox O2 Delivery O2 Flow Rate FiO2 02/15/17 18:08 97.8 83 17 161/85 (110) 94 02/15/17 09:35 96 Nasal Cannula 4.00 02/15/17 09:30 Nasal Cannula 3.50 02/15/17 06:23 98.0 82 17 160/73 (102) 93 02/14/17 20:59 98 Nasal Cannula 2.00 I/O 02/14/17 02/14/17 02/14/17 02/15/17 02/15/17 02/15/17 07:00 15:00 23:00 07:00 15:00 23:00 Intake Total 120 ml 840 ml 1080 ml Balance 120 ml 840 ml 1080 ml Intake Oral 120 ml 840 ml 1080 ml # Voids 1 5 1 # Bowel Movements 1 Result Diagram: 02/14/17215702/15/17 0604 Objective Remarks GENERAL: appears comfortable. On 2 L oxygen. SKIN: Warm and dry. HEAD: Normocephalic. EYES: No scleral icterus. No injection or drainage. NECK: Supple, trachea midline. No JVD or lymphadenopathy. CARDIOVASCULAR: Regular rate and rhythm without murmurs, gallops, or rubs. RESPIRATORY: Breath sounds equal bilaterally. No accessory muscle use. GASTROINTESTINAL: Abdomen soft, non-tender, nondistended. MUSCULOSKELETAL: No cyanosis, or edema. BACK: Nontender without obvious deformity. No CVA tenderness. A/P Assessment and Plan //Atypical pneumonia. //Hypoxic respiratory failure. Pulse oximetry 82 on room air on admission. //Possible CHF exacerbation -With productive cough -CT pulmonary angiogram with mediastinal adenopathy, bilateral pulmonary infiltrates. Duo Nebs, Azithromycin. Continue diet with 1800 mL fluid restriction. //Hypertension. //CAD status post CABG 3 //history of CHF. Blood pressure acceptable. Continue home medications. Continue aspirin and Plavix. Continue to monitor. = BNP 284 on admission. Echocardiogram pending. Continue fluid restrictions. //Diabetes mellitus type 2. -Blood sugars elevated. Insulin sliding scale added. Continue diabetic diet. continue Levemir.. //Diabetic neuropathy. Due to renal sufficiency, will decrease gabapentin dose. Continue to monitor. //Hyperlipidemia. Continue home medications. //Bilateral feet with diabetic ulcers. Right worse than left. Patient is to be continued on Cipro and daptomycin until 02/19. Requesting outside records, still pending. -ESR 76. =Infectious disease consult at. Continue on vancomycin as per infectious disease. Appreciate assistance = Podiatry consulted follow-up recommendations. //Anemia. Hemoglobin 8.9. Uncertain chronicity. No signs of bleeding. Reorder labs. //Renal insufficiency. Creatinine 1.1. On admission. GFR 49 on admission. Uncertain baseline. = Creatinine 0.97. Outside records still pending. Ken Pickett MD Feb 15, 2017 18:23
[2017-02-15] MEDS: ATORVASTATIN 40 MG TAB PO SCH (21:18)
[2017-02-15 22:10] VITALS: O2SAT 94
--- NOTE | 2017-02-15 22:14 | PD.CONS ---
History of Present Illness Service Podiatry Consult Requested By Reason for Consult R foot ulcer, nonhealing Primary Care Physician Blu Garcia M.D. Diagnoses: History of Present Illness Patient seen and examined. Records reviewed. Patient is not a good historian Relying strictly upon medical record. Patient has long history of ulcerations to bilateral feet. L seems to be healed with R nonhealing. She was apparently in nursing facility and has been on IV antibiotics for the ulceration/infection. She has had negative XR for R foot, but no MRI that I can find. No idea how long the ulceration has been present, but appears chronic. Past Family Social History Allergies: Coded Allergies: No Known Allergies (Unverified , 02/12/17) Past Medical History Charcot joint right ankle CAD with history of CABG in the past CHF Anemia Depression Diabetes mellitus Past Surgical History History of CABG 3 Active Ordered Medications Current Medications Medications (Trade) Dose Ordered Sig/Fátima Route Start Time Stop Time Status Last Admin (NS Flush) 2 ml UNSCH PRN IVF 02/12/17 15:45 (Tylenol) 650 mg Q12HR PRN PO 02/13/17 11:00 (Norvasc) 5 mg DAILY PO 02/13/17 11:00 02/15/17 08:48 (Aspirin Chew) 81 mg DAILY CHEW 02/13/17 11:00 02/15/17 08:47 (Lipitor) 40 mg HS PO 02/13/17 21:00 02/15/17 21:18 (Plavix) 75 mg DAILY PO 02/13/17 11:00 02/15/17 08:48 (Apresoline) 100 mg TID PO 02/13/17 13:00 02/15/17 16:36 (Levaquin) 750 mg DAILY PO 02/15/17 09:00 02/15/17 08:48 (Tessalon) 100 mg TID PRN PO 02/14/17 14:00 (Neurontin) 300 mg TID PO 02/14/17 18:00 02/15/17 16:36 (Lopressor) 50 mg BID PO 02/14/17 21:00 02/15/17 21:18 (Duoneb Neb) 1 ampule Q6HR WHILE AWAKE NEB NEB 02/14/17 14:00 02/15/17 13:14 (Lasix) 20 mg DAILY PO 02/15/17 09:00 02/15/17 08:48 (SEROquel) 12.5 mg BID PO 02/14/17 21:00 02/15/17 21:18 (Zithromax) 250 mg DAILY PO 02/15/17 09:00 02/15/17 08:48 (Pill Splitter) 1 ea UNSCH PRN OTHER 02/14/17 23:00 Pharmacy Profile Note 0 ml @ 0 mls/hr UNSCH OTHER 02/15/17 10:00 Vancomycin HCl 1250 mg/Sodium Chloride 262.5 ml @ 250 mls/hr Q24H IV 02/15/17 23:00 Miscellaneous Information SPECIFIC LAB TO BE [facility]... ONCE ONCE .XX 02/18/17 22:45 02/18/17 22:46 (Zoloft) 25 mg DAILY PO 02/15/17 13:30 02/15/17 13:30 (NovoLOG SUPPLEMENTAL SCALE) 1 ACHS SLIDING SCALE SQ 02/15/17 17:00 02/15/17 21:20 (D50w (Vial) Inj) 50 ml UNSCH PRN IV PUSH 02/15/17 15:30 (Glucagon Inj) 1 mg UNSCH PRN OTHER 02/15/17 15:30 (Levemir Inj) 6 units Q12HR SQ 02/15/17 21:00 02/15/17 21:00 Physical Exam Vital Signs Vital Signs Date Time Temp Pulse Resp B/P (MAP) Pulse Ox O2 Delivery O2 Flow Rate FiO2 02/15/17 18:08 97.8 83 17 161/85 (110) 94 02/15/17 18:00 94 Nasal Cannula 4.00 02/15/17 09:35 96 Nasal Cannula 4.00 02/15/17 09:30 Nasal Cannula 3.50 02/15/17 06:23 98.0 82 17 160/73 (102) 93 Physical Exam Rocker bottom deformity to bilateral feet. There is plantar midfoot ulceration R foot with hyperkeratotic rim and thick serous drainage. No erythema, no edema. No purulence noted. Appears chronic. Does not appear painful. Suspect peripheral neuropathy present due to charcot changes and lack of pain. Laboratory Laboratory Tests Test 02/15/17 06:04 Erythrocyte Sedimentation Rate 76 Blood Urea Nitrogen 27 Creatinine 0.97 Random Glucose 195 Calcium Level 8.4 Sodium Level 139 Potassium Level 4.5 Chloride Level 100 Carbon Dioxide Level 32.8 Anion Gap 6 Estimat Glomerular Filtration Rate 57 Hemoglobin A1c 7.4 Triglycerides Level 63 Cholesterol Level 96 LDL Cholesterol 41 HDL Cholesterol 42.0 Cholesterol/HDL Ratio 2.28 Date/Time Source Procedure Growth Status 02/12/17 16:15 Blood Peripheral Aerobic Blood Culture - Preliminary NO GROWTH IN 3 DAYS Resulted 02/12/17 16:15 Blood Peripheral Anaerobic Blood Culture - Preliminary NO GROWTH IN 3 DAYS Resulted Result Diagram: 02/14/17 2158 02/15/17 0604 Imaging Last 72 hours Impressions Foot X-Ray 02/14/17 0000 Signed Impressions: Service Date/Time: Tuesday, February 14, 2017 18:58 - CONCLUSION: 1. There is ulceration along the plantar aspect of the foot. No erosion is appreciated to suggest osteomyelitis by plain film imaging. 2. Lisfranc joint is not well-visualized but appears disrupted. The bones are undermineralized. Daniel Reyes MD Ordering MRI R foot with/without, pending Assessment and Plan Assessment and Plan R diabetic foot ulceration, chronic Ordering MRI to further evaluate R foot. Continue dressing as ordered in meantime. Eric Nagel DPM Feb 15, 2017 22:14
[2017-02-15] MEDS ORDERED: VANCOMYCIN INJ 1,250 MG in SODIUM CHLOR 0.9% 250 ML INJ 250 ML IV SCH (23:00)
[2017-02-16 05:55] VITALS: BP 141/82; PULSE 83; RESP 17; TEMP 98; O2SAT 95
[2017-02-16] MEDS: INSULIN ASPART SUPPLEMENTAL SCALE SQ SCH ×2 (07:27→11:01)
[2017-02-16 08:00] VITALS: BP 164/80; PULSE 88; RESP 25; TEMP 98.2; O2SAT 97
[2017-02-16] MEDS: amLODIPine BESYLATE 5 MG TAB PO SCH (08:34)
[2017-02-16] MEDS: ASPIRIN 81 MG CHEW TAB CHEW SCH (08:34)
[2017-02-16] MEDS: LEVOFLOXACIN 750 MG TAB PO SCH (08:34)
[2017-02-16] MEDS: METOPROLOL TARTRATE 50 MG TAB PO SCH (08:34)
[2017-02-16] MEDS: GABAPENTIN 300 MG CAP PO SCH ×2 (08:34→13:00)
[2017-02-16] MEDS: hydrALAZINE HCL 100 MG TAB PO SCH ×2 (08:34→13:00)
[2017-02-16] MEDS: QUEtiapine FUMARATE 25 MG TAB PO SCH (08:35)
[2017-02-16] MEDS: INSULIN DETEMIR 100 UNITS/ML VIAL SQ SCH (08:35)
[2017-02-16] MEDS: AZITHROMYCIN 250 MG TAB PO SCH (08:35)
[2017-02-16] MEDS: CLOPIDOGREL 75 MG TAB PO SCH (08:35)
[2017-02-16] MEDS: SERTRALINE HCL 50 MG TAB PO SCH (08:35)
[2017-02-16] MEDS ORDERED: guaiFENesin E.R. 600 MG TAB PO SCH (09:00)
[2017-02-16] MEDS ORDERED: FUROSEMIDE 40 MG/4 ML VIAL IV PUSH SCH ×2 (09:00→21:00)
--- NOTE | 2017-02-16 09:02 | HHI.PYPN ---
Subjective Remarks Patient seen follow, chart review. Patient found lying in hospital bed, cooperative today while eating her breakfast. Patient states that she had difficulty sleeping last evening and she felt more shortness of breath and states that she feels she needs more oxygen flow. Patient reports that she is eating and drinking well with no difficulty with bowel movement. Patient states that her mood has been "calm" although still continues to feel sad and she states she misses her father and has not talked to her son recently. She denies any perceptual disturbances such as auditory hallucinations and states the last time she had experienced it was 2 days ago. Mental Status Examination Appearance: Appropriate, Other (patient noted with increased swelling of her left upper extremity) Consciousness: Alert Orientation: Person Motor Activity: Normal gait Speech: Unremarkable Language: Adequate Fund of Knowledge: Adequate Attention and Concentration: Adequate Memory: Impaired Mood: Sad (less so today) Affect: Appropriate Thought Process & Associations: Logical, Linear Thought Content: Appropriate Hallucination Type: None Delusion Type: None Suicidal Ideation: No Suicidal Plan: No Suicidal Intention: No Homicidal Ideation: No Homicidal Plan: No Homicidal Intention: No Insight: Adequate Judgment: Adequate Results Labs Date/Time Source Procedure Growth Status 02/12/17 16:15 Blood Peripheral Aerobic Blood Culture - Preliminary NO GROWTH IN 3 DAYS Resulted 02/12/17 16:15 Blood Peripheral Anaerobic Blood Culture - Preliminary NO GROWTH IN 3 DAYS Resulted Vitals/IOs Vital Signs Date Time Temp Pulse Resp B/P (MAP) Pulse Ox O2 Delivery O2 Flow Rate FiO2 02/16/17 05:55 98.0 83 17 141/82 (101) 95 02/15/17 22:10 Nasal Cannula 4.00 Intake and Output 02/16/17 02/16/17 02/17/17 08:00 16:00 00:00 Intake Total 220 ml Balance 220 ml Assessment & Plan Problem List: (1) Unspecified psychosis ICD Codes: F29 - Unspecified psychosis not due to a substance or known physiological condition Assessment & Plan Patient at this time to do with improved mood, although continues report feeling depressed due to missing her son about her father, continues to be alert and oriented only to person and place (hospital), patient denies any suicidal ideations at this time reports last time of having per social service was 2 days ago. Patient tolerating medications well but noted to have increased shortness of breath the likely worsening of CHF which medical team is continually managing at this time. Recommendations as per primary medical team. Discharge planning in progress, collateral information pending from son. Justification for Cont. Inpt. At risk for further decompensation if at lower level of care Discharge Planning Patients or return back to her assisted living facility once medically and psychiatrically cleared. Hoang Muller MD Feb 16, 2017 09:02
[2017-02-16 09:15] LABS: AUTOMATED NEUTROPHIL # 4.8 TH/MM3 (1.8-7.7); BASOPHIL % 0.5 % (0.0-2.0); EOSINOPHIL # 0.1 TH/MM3 (0-0.4); EOSINOPHIL % 2.1 % (0.0-4.0); HEMATOCRIT 26.5 % (35.0-46.0); HEMO FLAGS DIFF FINAL; LYMPH % 14.7 % (9.0-44.0); MEAN CELL VOLUME 85.9 FL (80.0-100.0); MEAN CORPUSCULAR HEMOGLOBIN 26.9 PG (27.0-34.0); MEAN CORPUSCULAR HGB CONC 31.4 % (32.0-36.0); MONO % 10.9 % (0.0-8.0); NEUT % 71.8 % (16.0-70.0); PLATELET COUNT 175 TH/MM3 (150-450); RED BLOOD COUNT 3.09 MIL/MM3 (4.00-5.30); RED CELL DISTRIBUTION WIDTH 18.8 % (11.6-17.2); WHITE BLOOD COUNT 6.7 TH/MM3 (4.0-11.0)
[2017-02-16 09:27] LABS: ANION GAP 7 MEQ/L (5-15); AST (GOT) 17 U/L (15-37); BICARBONATE 32.3 MEQ/L (21.0-32.0); BLOOD UREA NITROGEN 36 MG/DL (7-18); CHLORIDE 99 MEQ/L (98-107); GLOMERULAR FILTRATION RATE 46 ML/MIN (>89); MAGNESIUM 2.6 MG/DL (1.5-2.5); POTASSIUM 4.6 MEQ/L (3.5-5.1); SODIUM (NA) 138 MEQ/L (136-145)
[2017-02-16 09:28] LABS: ALT (GPT) 25 U/L (10-53)
[2017-02-16 09:37] LABS: ALKALINE PHOSPHATASE 106 U/L (45-117); FREE T4 1.92 NG/DL (0.76-1.46); TOTAL BILIRUBIN ADULT 0.6 MG/DL (0.2-1.0)
[2017-02-16] MEDS: RESP: ALBUTEROL 2.5 MG/IPRATROPIUM 0.5 MG NEB (SCH) NEB ×2 (09:49→13:20)
[2017-02-16 09:52] VITALS: O2SAT 95
[2017-02-16] MEDS ORDERED: RESP: ALBUTEROL 2.5 MG/IPRATROPIUM 0.5 MG NEB (PRN) NEB ×2 (10:00→15:15)
--- NOTE | 2017-02-16 10:09 | HHI.PR ---
Subjective Remarks FOLLOW UP CHF/PNEUMONIA BL LE ISSUES AM LABS DW RN AND PT ADD EXTRA LASIX TODAY ONLY Objective Vitals Vital Signs Date Time Temp Pulse Resp B/P (MAP) Pulse Ox O2 Delivery O2 Flow Rate FiO2 02/16/17 05:55 98.0 83 17 141/82 (101) 95 02/15/17 22:10 94 Nasal Cannula 4.00 02/15/17 20:00 Nasal Cannula 4.00 02/15/17 18:08 97.8 83 17 161/85 (110) 94 02/15/17 18:00 94 Nasal Cannula 4.00 I/O 02/15/17 02/15/17 02/15/17 02/16/17 02/16/17 02/16/17 07:00 15:00 23:00 07:00 15:00 23:00 Intake Total 1080 ml 480 ml 100 ml 120 ml Balance 1080 ml 480 ml 100 ml 120 ml Intake Oral 1080 ml 480 ml 100 ml 120 ml # Voids 1 1 1 Result Diagram: 02/16/17 0855 02/16/17 0855 Other Results Laboratory Tests Test 02/14/17 21:58 02/15/17 06:04 02/16/17 08:55 White Blood Count 7.6 TH/MM3 6.7 TH/MM3 Red Blood Count 3.19 MIL/MM3 3.09 MIL/MM3 Hemoglobin 8.8 GM/DL 8.3 GM/DL Hematocrit 27.6 % 26.5 % Mean Corpuscular Volume 86.6 FL 85.9 FL Mean Corpuscular Hemoglobin 27.5 PG 26.9 PG Mean Corpuscular Hemoglobin Concent 31.8 % 31.4 % Red Cell Distribution Width 19.4 % 18.8 % Platelet Count 178 TH/MM3 175 TH/MM3 Mean Platelet Volume 7.4 FL 7.4 FL Neutrophils (%) (Auto) 78.4 % 71.8 % Lymphocytes (%) (Auto) 9.9 % 14.7 % Monocytes (%) (Auto) 8.9 % 10.9 % Eosinophils (%) (Auto) 2.4 % 2.1 % Basophils (%) (Auto) 0.4 % 0.5 % Neutrophils # (Auto) 6.0 TH/MM3 4.8 TH/MM3 Lymphocytes # (Auto) 0.7 TH/MM3 1.0 TH/MM3 Monocytes # (Auto) 0.7 TH/MM3 0.7 TH/MM3 Eosinophils # (Auto) 0.2 TH/MM3 0.1 TH/MM3 Basophils # (Auto) 0.0 TH/MM3 0.0 TH/MM3 CBC Comment DIFF FINAL DIFF FINAL Differential Comment Blood Urea Nitrogen 29 MG/DL 27 MG/DL 36 MG/DL Creatinine 1.05 MG/DL 0.97 MG/DL 1.18 MG/DL Random Glucose 319 MG/DL 195 MG/DL 133 MG/DL Total Protein 7.7 GM/DL 7.9 GM/DL Albumin 2.6 GM/DL 2.5 GM/DL Calcium Level 8.4 MG/DL 8.4 MG/DL 8.9 MG/DL Alkaline Phosphatase 93 U/L 106 U/L Aspartate Amino Transf (AST/SGOT) 18 U/L 17 U/L Alanine Aminotransferase (ALT/SGPT) 21 U/L 25 U/L Total Bilirubin 0.5 MG/DL 0.6 MG/DL Sodium Level 138 MEQ/L 139 MEQ/L 138 MEQ/L Potassium Level 4.7 MEQ/L 4.5 MEQ/L 4.6 MEQ/L Chloride Level 99 MEQ/L 100 MEQ/L 99 MEQ/L Carbon Dioxide Level 33.4 MEQ/L 32.8 MEQ/L 32.3 MEQ/L Anion Gap 6 MEQ/L 6 MEQ/L 7 MEQ/L Estimat Glomerular Filtration Rate 52 ML/MIN 57 ML/MIN 46 ML/MIN Erythrocyte Sedimentation Rate 76 mm/hr Hemoglobin A1c 7.4 % Triglycerides Level 63 MG/DL Cholesterol Level 96 MG/DL LDL Cholesterol 41 MG/DL HDL Cholesterol 42.0 MG/DL Cholesterol/HDL Ratio 2.28 RATIO Phosphorus Level 3.9 MG/DL Magnesium Level 2.6 MG/DL Free Thyroxine 1.92 NG/DL Thyroid Stimulating Hormone 3rd Gen 5.100 uIU/ML Imaging Last Impressions Foot X-Ray 02/14/17 0000 Signed Impressions: Service Date/Time: Tuesday, February 14, 2017 18:58 - CONCLUSION: 1. There is ulceration along the plantar aspect of the foot. No erosion is appreciated to suggest osteomyelitis by plain film imaging. 2. Lisfranc joint is not well-visualized but appears disrupted. The bones are undermineralized. Daniel Reyes MD CT Angiography 02/12/17 1610 Signed Impressions: Service Date/Time: Sunday, February 12, 2017 17:39 - CONCLUSION: 1. No pulmonary embolus. 2. Bilateral pulmonary infiltrates. 3. Mediastinal adenopathy likely reactive in nature. 4. Bilateral pleural effusions. 5. Cardiomegaly. 6. Significant coronary artery atherosclerotic calcifications. Uzair Duran Jr., MD Chest X-Ray 02/12/17 1544 Signed Impressions: Service Date/Time: Sunday, February 12, 2017 17:08 - CONCLUSION: Moderate congestive failure. Ag Del Toro MD FACR Objective Remarks GENERAL: AWAKE ALERT AND TALKATIVE AND COOPERATIVE-SPEAKS IN [place] SKIN: Warm and dry. BL FEET ARE DRESSED HEAD: Atraumatic. Normocephalic. EYES: Pupils equal and round. No scleral icterus. No injection or drainage. EOMI ENT: No nasal bleeding or discharge. Mucous membranes pink and moist. TONGUE MIDLINE NECK: Trachea midline. No JVD. SUPPLE CARDIOVASCULAR: Regular rate and rhythm. S1,S 2 NO S3 OR S4 RESPIRATORY: No accessory muscle use. RHONCHI BL, COARSE BL. Breath sounds equal bilaterally. GASTROINTESTINAL: Abdomen soft, non-tender, nondistended. Hepatic and splenic margins not palpable. MUSCULOSKELETAL: Extremities without clubbing, cyanosis, or edema. No obvious deformities. BL LE DRESSED NEUROLOGICAL: Awake and alert. No obvious cranial nerve deficits. Motor grossly within normal limits. 4 out of 5 muscle strength in the arms and legs ON THE RIGHT. Normal speech. LEFT UE WEAKNESS 3/5 ON LEFT UE AND 4/5 ON LEFT LE PSYCHIATRIC: INAppropriate mood and affect; insight and judgment ABnormal. Medications and IVs Current Medications Sodium Chloride (NS Flush) 2 ml UNSCH PRN IVF FLUSH AFTER USING IV ACCESS; Start 02/12/17 at 15:45 Albuterol/ Ipratropium (Duoneb Neb) 3 ampule ONCE ONCE NEB Last administered on 02/12/17 16:31; Start 02/12/17 at 16:00; Stop 02/12/17 at 16:01; Status DC Insulin Human Regular (NovoLIN R INJ) 8 units ONCE ONCE SQ Last administered on 02/12/17 16:45; Start 02/12/17 at 16:15; Stop 02/12/17 at 16:16; Status DC Iohexol (Omnipaque 350 Inj) 75 ml STK-MED ONCE IVCONTRAST Last administered on 02/12/17 17:39; Start 02/12/17 at 17:39; Stop 02/12/17 at 17:40; Status DC Furosemide (Lasix Inj) 40 mg ONCE ONCE IV PUSH Last administered on 18:30; Start 02/12/17 at 18:15; Stop 02/12/17 at 18:16; Status DC Acetaminophen (Tylenol) 650 mg Q12HR PRN PO PAIN 1 TO 10 AND/OR AGITATION; Start 02/13/17 at 11:00 Amlodipine Besylate (Norvasc) 5 mg DAILY PO Last administered on 02/16/17 08: 34; Start 02/13/17 at 11:00 Aspirin (Aspirin Chew) 81 mg DAILY CHEW Last administered on 02/16/17 08:34; Start 02/13/17 at 11:00 Atorvastatin Calcium (Lipitor) 40 mg HS PO Last administered on 02/15/17 21: 18; Start 02/13/17 at 21:00 Clopidogrel Bisulfate (Plavix) 75 mg DAILY PO Last administered on 02/16/17 08:35; Start 02/13/17 at 11:00 Gabapentin (Neurontin) 600 mg TID PO Last administered on 02/14/17 13:35; Start 02/13/17 at 13:00; Stop 02/14/17 at 13:57; Status DC Hydralazine HCl (Apresoline) 100 mg TID PO Last administered on 02/16/17 08: 34; Start 02/13/17 at 13:00 Metoprolol Tartrate (Lopressor) 100 mg DAILY PO Last administered on 10:00; Start 02/13/17 at 11:00; Stop 02/14/17 at 13:57; Status DC Levofloxacin (Levaquin) 750 mg DAILY PO Last administered on 02/16/17 08:34; Start 02/15/17 at 09:00 Levofloxacin (Levaquin) 750 mg ONCE ONCE PO Last administered on 02/14/17 14 :00; Start 02/14/17 at 14:00; Stop 02/14/17 at 14:05; Status DC Benzonatate (Tessalon) 100 mg TID PRN PO COUGH; Start 02/14/17 at 14:00 Gabapentin (Neurontin) 300 mg TID PO Last administered on 02/16/17 08:34; Start 02/14/17 at 18:00 Metoprolol Tartrate (Lopressor) 50 mg BID PO Last administered on 02/16/17 08 :34; Start 02/14/17 at 21:00 Albuterol/ Ipratropium (Duoneb Neb) 1 ampule Q6HR WHILE AWAKE NEB NEB Last administered on 02/15/17 22:10; Start 02/14/17 at 14:00 Insulin Detemir (Levemir Inj) 5 units Q12HR SQ Last administered on 02/15/17 08:49; Start 02/14/17 at 21:00; Stop 02/15/17 at 18:19; Status DC Cefepime HCl (Maxipime Inj) 2,000 mg Q12H IV ; Start 02/14/17 at 17:00; Status Cancel Daptomycin (Cubicin Inj) 500 mg Q24H IV ; Start 02/14/17 at 18:00; Status Cancel Furosemide (Lasix) 20 mg DAILY PO Last administered on 02/15/17 08:48; Start 02/15/17 at 09:00; Stop 02/16/17 at 08:09; Status DC Cefepime HCl 2000 mg/Sodium Chloride 100 ml @ 200 mls/hr Q12H IV ; Start 02/14 at 17:00; Stop 02/14/17 at 18:41; Status DC Daptomycin 500 mg/ Sodium Chloride 100 ml @ 200 mls/hr Q24H IV ; Start at 18:00; Stop 02/14/17 at 23:05; Status DC Quetiapine Fumarate (SEROquel) 12.5 mg BID PO Last administered on 02/16/17 08:35; Start 02/14/17 at 21:00 Azithromycin (Zithromax) 500 mg ONCE ONCE PO Last administered on 02/14/17 21:23; Start 02/14/17 at 18:45; Stop 02/14/17 at 18:46; Status DC Azithromycin (Zithromax) 250 mg DAILY PO Last administered on 02/16/17 08:35 ; Start 02/15/17 at 09:00 Miscellaneous (Pill Splitter) 1 ea UNSCH PRN OTHER SEE LABEL COMMENTS; Start 02/14/17 at 23:00 Daptomycin 500 mg/ Sodium Chloride 100 ml @ 200 mls/hr Q24H IV Last administered on 02/14/17 23:34; Start 02/15/17 at 00:00; Stop 02/15/17 at 09 :52; Status DC Vancomycin HCl 1000 mg/Sodium Chloride 250 ml @ 250 mls/hr ONCE ONCE IV ; Start 02/15/17 at 10:00; Stop 02/15/17 at 10:59; Status UNV Pharmacy Profile Note 0 ml @ 0 mls/hr UNSCH OTHER ; Start 02/15/17 at 10:00 Vancomycin HCl 1250 mg/Sodium Chloride 262.5 ml @ 250 mls/hr Q24H IV Last administered on 02/15/17 23:00; Start 02/15/17 at 23:00 Miscellaneous Information SPECIFIC LAB TO BE ... ONCE ONCE .XX ; Start at 22:45; Stop 02/18/17 at 22:46 Sertraline HCl (Zoloft) 25 mg DAILY PO Last administered on 02/16/17 08:35; Start 02/15/17 at 13:30 Insulin Aspart (NovoLOG SUPPLEMENTAL SCALE) 1 ACHS SLIDING SCALE SQ Last administered on 02/15/17 21:20; Start 02/15/17 at 17:00 Dextrose (D50w (Vial) Inj) 50 ml UNSCH PRN IV PUSH HYPOGLYCEMIA - SEE COMMENTS ; Start 02/15/17 at 15:30 Glucagon (Glucagon Inj) 1 mg UNSCH PRN OTHER HYPOGLYCEMIA-SEE COMMENTS; Start 02/15/17 at 15:30 Insulin Detemir (Levemir Inj) 6 units Q12HR SQ Last administered on 02/16/17 08:35; Start 02/15/17 at 21:00 Furosemide (Lasix Inj) 40 mg BID@09,18 IV PUSH Last administered on 02/16/17 08:34; Start 02/16/17 at 09:00 Guaifenesin (Mucinex Er) 600 mg BID PO Last administered on 02/16/17 09:00; Start 02/16/17 at 09:00 A/P Assessment and Plan //Atypical pneumonia. //Hypoxic respiratory failure. Pulse oximetry 82 on room air on admission. ON 6 LITERS NOW //Possible CHF exacerbation WILL INCREASE LASIX TO 40MG IV DAILY -With productive cough -CT pulmonary angiogram with mediastinal adenopathy, bilateral pulmonary infiltrates. Duo Nebs, Azithromycin.LEVAQUIN. VANCO Continue diet with 1800 mL fluid restriction. WILL GET AM LABS //Hypertension. //CAD status post CABG 3 //history of CHF. Blood pressure acceptable. Continue home medications. Continue aspirin and Plavix. Continue to monitor. = BNP 284 on admission. Echocardiogram pending. Continue fluid restrictions. //Diabetes mellitus type 2. -Blood sugars elevated. Insulin sliding scale added. Continue diabetic diet. continue Levemir.. //Diabetic neuropathy. Due to renal sufficiency, will decrease gabapentin dose. Continue to monitor. //Hyperlipidemia. Continue home medications. //Bilateral feet with diabetic ulcers. Right worse than left. Patient is to be continued on Cipro and daptomycin until 02/19. Requesting outside records, still pending. -ESR 76. =Infectious disease consult at. Continue on vancomycin as per infectious disease. Appreciate assistance = Podiatry consulted follow-up recommendations. //Anemia. Hemoglobin 8.9. Uncertain chronicity. No signs of bleeding. Reorder labs. //Renal insufficiency. Creatinine 1.18. On admission. GFR 49 on admission. Uncertain baseline. = Creatinine 0.97. Outside records still pending. Discharge Planning CONTINUE VANCO, ZITHRO, LEVAQUIN INCREASE LASIX TO 40MG IV DAILY AM LAB CONSULT PT AND OT FOR LEFT UE WEAKNESS INCENTIVE SPIROMETRY Ag Shin DO Feb 16, 2017 10:09
[2017-02-16 12:10] VITALS: BP 154/72; PULSE 86; RESP 20; TEMP 98.7; O2SAT 88
[2017-02-16 12:17] VITALS: BP 139/71; PULSE 85; RESP 20; O2SAT 93
--- NOTE | 2017-02-16 12:57 | RADRPT ---
EXAM DATE/TIME: 02/16/2017 12:32 [facility] COMPARISON: CHEST PA & LAT, February 12, 2017, 17:08. INDICATIONS : Short of breath. MEDICAL HISTORY : Charcots; Diabetes; Sucidal thoughts.Coronary artery disease. SURGICAL HISTORY : None. ENCOUNTER: Subsequent ACUITY: 4 - 6 days PAIN SCORE: Non-responsive. LOCATION: Bilateral chest FINDINGS: A single portable frontal view the chest shows mild cardiomegaly. Pulmonary vascular engorgement. Tin y right effusion. Interstitial prominence involving the lungs bilaterally. The right-sided PICC line has been pulled back with the tip now in the axillary vein. Median sternotomy wires noted. CONCLUSION: 1. Cardiomegaly with pulmonary vascular engorgement and bilateral interstitial prominence. This likel y relates to interstitial edema. 2. Right PICC line has been pulled back with the tip now in the axillary vein. Uzair Duran Jr., MD on February 16, 2017 at 12:46 Board Certified Radiologist. This report was verified electronically.
--- NOTE | 2017-02-16 12:57 | ECHRPT ---
Indication: Heart Failure CONCLUSIONS Normal left ventricular size. Moderate concentric left ventricular hypertrophy. The left ventricular systolic function is borderline normal with an estimated ejection fraction of 5 0%. Mitral annular calcification is present. Trace mitral valve regurgitation. Aortic valve sclerosis is present. BP: 160 / 73 HR: 82 Rhythm: MEASUREMENTS (Male / Female) Normal Values Technical Quality:Fair 2D ECHO LV Diastolic Diameter PLAX 4.4 cm 4.2 - 5.9 / 3.9 - 5.3 cm LV Systolic Diameter PLAX 3.6 cm IVS Diastolic Thickness 1.4 cm 0.6 - 1.0 / 0.6 - 0.9 cm LVPW Diastolic Thickness 0.9 cm 0.6 - 1.0 / 0.6 - 0.9 cm LV Relative Wall Thickness 0.5 RV Internal Dim ED PLAX 2.2 cm LA Systolic Diameter LX 3.5 cm 3.0 - 4.0 / 2.7 - 3.8 cm M-MODE Aortic Root Diameter MM 2.7 cm AV Cusp Separation MM 1.5 cm DOPPLER AV Peak Velocity 236.0 cm/s AV Peak Gradient 22.3 mmHg LVOT Peak Velocity 105.0 cm/s LVOT Peak Gradient 4.4 mmHg MV Peak Velocity 149.0 cm/s MV Peak Gradient 8.9 mmHg MV Mean Velocity 65.0 cm/s MV Mean Gradient 2.0 mmHg Mitral E Point Velocity 104.0 cm/s Mitral A Point Velocity 78.5 cm/s Mitral E to A Ratio 1.3 TR Peak Velocity 296.0 cm/s TR Peak Gradient 35.0 mmHg Right Atrial Pressure 10.0 mmHg Pulmonary Artery Systolic Pressu 45.0 mmHg Right Ventricular Systolic Press 45.0 mmHg FINDINGS LEFT VENTRICLE Normal left ventricular size. Moderate concentric left ventricular hypertrophy. The left ventricular systolic function is borderline normal with an estimated ejection fraction of 5 0%. RIGHT VENTRICLE Normal right ventricular size and systolic function. LEFT ATRIUM The left atrial size is normal. RIGHT ATRIUM The right atrial size is normal. ATRIAL SEPTUM Normal atrial septal thickness without atrial level shunting by limited color doppler interrogation. AORTA The aortic root and proximal ascending aorta are normal in size on limited imaging. MITRAL VALVE Mitral annular calcification is present. Trace mitral valve regurgitation. AORTIC VALVE Aortic valve sclerosis is present. TRICUSPID VALVE Structurally normal tricuspid valve. No tricuspid valve stenosis or regurgitation. PULMONARY VALVE No pulmonary valve regurgitation or stenosis. VESSELS The inferior vena cava is normal in size. PERICARDIUM No pericardial effusion. Otakar Quadrat MD, FACC (Electronically Signed) Final Date:16 February 2017 12:56
[2017-02-16 13:01] LABS: BLOOD GAS BASE EXCESS 9.4 mmol/L (-2-2); BLOOD GAS HCO3 35 mmol/L (22-26); BLOOD GAS PCO2 57 mmHg (38-42); BLOOD GAS PO2 83 mmHg (61-120)
[2017-02-16 13:02] LABS: BLOOD GAS METHEMOGLOBIN 1.2 % (0-2); BLOOD GAS O2 HGB SATURATION 93 % (90-100); BLOOD GAS OXYGEN CONTENT 10.6 Vol % (12.0-20.0); TEMP CORR TO 98.6
[2017-02-16 13:03] LABS: CRITICAL VALUE YES; DRAW SITE LT RADIAL; LITER FLOW 5 L/M; NUMBER OF ARTERIAL PUNCTURES 2; OXYGEN DEVICE NASAL CANNULA; STAT YES; ULNAR PULSE PRESENT
[2017-02-16] MEDS ORDERED: SERT-132 PO (14:38)
[2017-02-16] MEDS ORDERED: SERO25TA PO (14:38)
[2017-02-16 14:41] LABS: BLOOD GAS BASE EXCESS 9.1 mmol/L (-2-2); BLOOD GAS HCO3 34 mmol/L (22-26); BLOOD GAS METHEMOGLOBIN 1.1 % (0-2); BLOOD GAS O2 HGB SATURATION 95 % (90-100); BLOOD GAS PCO2 51 mmHg (38-42); BLOOD GAS PO2 111 mmHg (61-120); BLOOD GAS TOTAL HGB 8.1 G/DL (12.0-16.0); CRITICAL VALUE YES; LITER FLOW 15 L/M; OXYGEN DEVICE NONREBREATHER; TEMP CORR TO 98.6
[2017-02-16 14:42] LABS: DRAW SITE RT BRACHIAL; NUMBER OF ARTERIAL PUNCTURES 1; STAT YES
--- NOTE | 2017-02-16 14:47 | HHI.DS ---
Psychiatry Discharge Summary Inpatient Psychiatric care?: Yes Advance Directive: No Reason Not Provided: Due to Patient Condition Mental Health AdvanceDirective: No Health Care Proxy: No Admission Admission Date Feb 13, 2017 at 11:51 Admission Diagnosis: (1) Unspecified psychosis ICD Code: F29 - Unspecified psychosis not due to a substance or known physiological condition (2) DEMENTIA IN OTH DISEASES CLASSD ELSWHR W/O BEHAVRL DISTURB ICD Code: F02.80 - DEMENTIA IN OTH DISEASES CLASSD ELSWHR W/O BEHAVRL DISTURB Brief History The patient is a 66-year-old [place] woman, domiciled in SNF In [facility], , supported by Social Security, with psychiatric history of schizophrenia, depression, no previous psychiatric hospitalizations, no previous suicidal attempts, she has been Zoloft in the past, extensive medical history of CHF, diabetes, hypertension, who presents to the emergency room from SNF via ambulance for evaluation of suicidal ideation. Patient is Romanian speaking only she was interviewed in primary language. According to report, patient has had increasing depressed mood and suicidal ideation. Patient denies suicidal or homicidal ideation. Initially states she has been depressed because she misses her who 3 years ago. Patient then states her chief complaint is shortness of breath. She is noted to be 74% on room air on arrival. She has slight increased work of breathing. Reports mild nonproductive cough that has been ongoing for unspecified amount of time. States she has bilateral leg pain from chronic diabetic ulcers which are being treated with IV medications at her facility. She denies chest pain, abdominal pain, or any other symptoms at this time. Paperwork she presents with shows that she was just seen at another facility 6 days ago and had a complete workup for altered mental status. There are physician orders from the doctor at her assisted living facility that states she should come to [place] for a psych eval in order to manage her psychiatric medications. Patient's nursing facility was called and simply stated that she was sent to the emergency room for suicidal ideation. On psychiatric evaluation today the patient is found sleeping, but easily arousable. The patient states that she feels okay, she does not know the reason of her hospitalization. Patient is confused, disoriented, she says that she is in [facility] in her house. Patient is disoriented also in time, she says that the assistant to the vice president is Ilan. She reports good mood, she denies depressive symptoms, she denies anxiety, she denies suicidal and homicidal ideation, she denies visual and auditory hallucinations. Patient says that she is not crazy "my son is the one who is crazy, and my daughter is even more crazy". Patient denies the use of alcohol and illicit drugs. Collateral information from her son Pedrito, was obtained. He says that the problem with his mother is that she has been depressed in the last months, as been episodically endorsing suicidal ideation and becoming agitated and even physically aggressive in her usp. He says that since patient's about 2 years ago the patient has been experiencing episodic depression, with isolation, lack of motivation, poor sleep, and frequent suicidal ideation. He says that his mother baseline could be very manipulative he understand that sometimes she uses suicidal ideation in order to get attention. However, at the same time he is convinced that his mother is depressed and needs psychiatric attention. Tobacco Use In Past 30 Days: Refused To Answer Alcohol Use: Never Hospital Course Patient is a 66-year-old [place]an woman, , unemployed, domicile with her son, with past psychiatric history of depression, dementia, schizophrenia as per chart, though psychiatric consultations, no suicide attempts with past medical history of CHF, DM, hypertension who was sent from her [place] [facility] facility for increased depressive symptoms and suicidal ideation as well as confusion, disorientation, and auditory hallucinations to hurt herself. Patient was started on quetiapine 12.5mg PO BID and Sertraline 25mg PO daily and titrated up to 50mg PO daily for depression. Patient tolerated medications well with no noted adverse drug reactions. Patient noted to have had improvement with mood although still feeling sad but denied feeling depressed nor having suicidal ideations. Patient had cessation of auditory hallucinations or any other psychotic symptoms. Patient continued to be alert and oriented to person and place as patient has diagnosis of dementia. Patient did not have any behavioral dyscontrol nor episodes of agitation since admission. She was noted to be cooperative with staff, compliant with treatment. Patient was noted to have increased shortness of breath as well as episodes of desaturation which [facility] was called due to patients saturations in the 80s which she will be transferred to the medical floor for further medical management but no longer requires psychiatric management due to improvement as stated above. Collateral from her SNF reported that patient may return back there once discharged from the hospital. Results Blood Pressure 139 / 71 Vital Signs Date Time Temp Pulse Resp B/P (MAP) Pulse Ox O2 Delivery O2 Flow Rate FiO2 02/16/17 12:26 Nasal Cannula 5.00 02/16/17 12:17 85 20 139/71 (93) 93 02/16/17 12:10 98.7 Laboratory Tests Test 02/14/17 21:58 02/15/17 06:04 02/16/17 08:55 02/16/17 12:45 Red Blood Count 3.19 MIL/MM3 (4.00-5.30) 3.09 MIL/MM3 (4.00-5.30) Hemoglobin 8.8 GM/DL (11.6-15.3) 8.3 GM/DL (11.6-15.3) Hematocrit 27.6 % (35.0-46.0) 26.5 % (35.0-46.0) Mean Corpuscular Hemoglobin Concent 31.8 % (32.0-36.0) 31.4 % (32.0-36.0) Red Cell Distribution Width 19.4 % (11.6-17.2) 18.8 % (11.6-17.2) Neutrophils (%) (Auto) 78.4 % (16.0-70.0) 71.8 % (16.0-70.0) Monocytes (%) (Auto) 8.9 % (0.0-8.0) 10.9 % (0.0-8.0) Lymphocytes # (Auto) 0.7 TH/MM3 (1.0-4.8) Blood Urea Nitrogen 29 MG/DL (7-18) 27 MG/DL (7-18) 36 MG/DL (7-18) Creatinine 1.05 MG/DL (0.50-1.00) 1.18 MG/DL (0.50-1.00) Random Glucose 319 MG/DL (74-106) 195 MG/DL (74-106) 133 MG/DL (74-106) Albumin 2.6 GM/DL (3.4-5.0) 2.5 GM/DL (3.4-5.0) Calcium Level 8.4 MG/DL (8.5-10.1) 8.4 MG/DL (8.5-10.1) Carbon Dioxide Level 33.4 MEQ/L (21.0-32.0) 32.8 MEQ/L (21.0-32.0) 32.3 MEQ/L (21.0-32.0) Estimat Glomerular Filtration Rate 52 ML/MIN (>89) 57 ML/MIN (>89) 46 ML/MIN (>89) Erythrocyte Sedimentation Rate 76 mm/hr (0-30) Hemoglobin A1c 7.4 % (4.3-6.0) Cholesterol Level 96 MG/DL (120-200) Mean Corpuscular Hemoglobin 26.9 PG (27.0-34.0) Magnesium Level 2.6 MG/DL (1.5-2.5) Free Thyroxine 1.92 NG/DL (0.76-1.46) Thyroid Stimulating Hormone 3rd Gen 5.100 uIU/ML (0.358-3.740) Blood Gas HCO3 35 mmol/L (22-26) Blood Gas Base Excess 9.4 mmol/L (-2-2) Arterial Blood Partial Pressure CO2 57 mmHg (38-42) Arterial Blood Oxygen Content 10.6 Vol % (12.0-20.0) Blood Gas Hemoglobin 8.0 G/DL (12.0-16.0) Test 02/16/17 14:30 Blood Gas HCO3 34 mmol/L (22-26) Blood Gas Base Excess 9.1 mmol/L (-2-2) Arterial Blood pH 7.44 (7.380-7.420) Arterial Blood Partial Pressure CO2 51 mmHg (38-42) Arterial Blood Oxygen Content 11.0 Vol % (12.0-20.0) Blood Gas Hemoglobin 8.1 G/DL (12.0-16.0) Laboratory Results Test 02/15/17 06:04 02/16/17 08:55 Cholesterol Level 96 MG/DL (120-200) HDL Cholesterol 42.0 MG/DL (40.0-60.0) LDL Cholesterol 41 MG/DL (0-99) Triglycerides Level 63 MG/DL (42-150) Summary of Procedures None Imaging Last Impressions Chest X-Ray 02/16/17 0000 Signed Impressions: Service Date/Time: Thursday, February 16, 2017 12:32 - CONCLUSION: 1. Cardiomegaly with pulmonary vascular engorgement and bilateral interstitial prominence. This likely relates to interstitial edema. 2. Right PICC line has been pulled back with the tip now in the axillary vein. Uzair Duran Jr., MD Foot X-Ray 02/14/17 0000 Signed Impressions: Service Date/Time: Tuesday, February 14, 2017 18:58 - CONCLUSION: 1. There is ulceration along the plantar aspect of the foot. No erosion is appreciated to suggest osteomyelitis by plain film imaging. 2. Lisfranc joint is not well-visualized but appears disrupted. The bones are undermineralized. Daniel Reyes MD CT Angiography 02/12/17 1610 Signed Impressions: Service Date/Time: Sunday, February 12, 2017 17:39 - CONCLUSION: 1. No pulmonary embolus. 2. Bilateral pulmonary infiltrates. 3. Mediastinal adenopathy likely reactive in nature. 4. Bilateral pleural effusions. 5. Cardiomegaly. 6. Significant coronary artery atherosclerotic calcifications. Uzair Duran Jr., MD Pending results at discharge: No Medications # of Antipsychotic meds at D/C: 1 Approp Antipsych med options 1 - Minimum of three failed multiple trials of monotherapy. 2 - Documented plan to taper to monotherapy due to previous use of multiple meds OR cross-taper in progress at D/C. 3 - Documentation of augmentation of Clozapine. 4 - Justification other than those listed in allowable values 1-3, document here : Discharge Discharge Date: Feb 16, 2017 Discharge Diagnosis: (1) Unspecified psychosis ICD Code: F29 - Unspecified psychosis not due to a substance or known physiological condition (2) DEMENTIA IN OTH DISEASES CLASSD ELSWHR W/O BEHAVRL DISTURB ICD Code: F02.80 - DEMENTIA IN OTH DISEASES CLASSD ELSWHR W/O BEHAVRL DISTURB Pt Condition on Discharge: Stable Discharge Disposition: Discharge Home (Patient being discharged to medical floor for further medical management) Discharge Instructions Diet Instructions: Heart Healthy Diet Discharge Time > 30 minutes Mental Status Examination Appearance: Appropriate, Other (patient noted with increased swelling of her left upper extremity) Consciousness: Alert Orientation: Person Motor Activity: Normal gait Speech: Unremarkable Language: Adequate Fund of Knowledge: Adequate Attention and Concentration: Adequate Memory: Impaired Mood: Sad Affect: Appropriate Thought Process & Associations: Logical, Linear Thought Content: Appropriate Hallucination Type: None Delusion Type: None Suicidal Ideation: No Suicidal Plan: No Suicidal Intention: No Homicidal Ideation: No Homicidal Plan: No Homicidal Intention: No Insight: Adequate Judgment: Adequate Discharge/Advance Care Plan Health Problems: (1) Unspecified psychosis Goals to promote your health * To prevent worsening of your condition and complications * To maintain your health at the optimal level Directions to meet your goals Take your medications as prescribed Follow your dietary instruction Follow activity as directed Keep your appointments as scheduled Take your immunizations and boosters as scheduled If your symptoms worsen call your PCP, if no PCP go to Urgent Care Center or Emergency Room For 24/ questions related to your inpatient stay or results of tests pending at discharge, please contact Dr. Hoang Muller at Smoking is Dangerous to Your Health. Avoid second hand smoking Hoang Muller MD Feb 16, 2017 14:47
[2017-02-16 15:01] VITALS: BP 125/59; PULSE 72; RESP 26; O2SAT 99
--- NOTE | 2017-02-16 15:41 | RADRPT ---
EXAM DATE/TIME: 02/16/2017 15:14 [place] COMPARISON: No previous studies available for comparison. INDICATIONS : Altered mental status RADIATION DOSE: 56.35 CTDIvol (mGy) MEDICAL HISTORY : Diabetes mellitus type 1. SURGICAL HISTORY : None. ENCOUNTER: Initial ACUITY: 1 day PAIN SCALE: Non-responsive LOCATION: cranial TECHNIQUE: Multiple contiguous axial images were obtained of the head. Using automated exposure control and adj ustment of the mA and/or kV according to patient size, radiation dose was kept as low as reasonably a chievable to obtain optimal diagnostic quality images. DICOM format image data is available electro nically for review and comparison. FINDINGS: CEREBRUM: There is mild cerebral atrophy. Ventricles are normal. Mild periventricular white matter low-attenuat ion is present. Focal area of ossification at the right frontal high convexity measures 11 mm and cou ld represent a calcified meningioma. No midline shift, mass lesion, hemorrhage or acute infarction. No extra-axial fluid collections are seen. POSTERIOR FOSSA: The cerebellum and brainstem demonstrate no acute finding. The 4th ventricle is midline. The cerebe llopontine angle is unremarkable. EXTRACRANIAL: Visualized sinuses are clear. SKULL: The calvaria is intact. No evidence of skull fracture. CONCLUSION: 1. No acute intracranial abnormality is identified. 2. Chronic findings include mild cerebral atrophy and chronic white matter changes. Daniel Reyes MD on February 16, 2017 at 15:36 Board Certified Radiologist. This report was verified electronically.
[2017-02-16] MEDS ORDERED: RESP: ALBUTEROL 2.5 MG/IPRATROPIUM 0.5 MG NEB (SCH) NEB (16:00)
[2017-02-16 17:37] LABS: HEMOGLOBIN A1a 1.3 %; HEMOGLOBIN A1b 0.8 %; HEMOGLOBIN Ao 81.9 %; HEMOGLOBIN F 1.4 %; HEMOGLOBIN LA1C 2.3 %; HEMOGLOBIN P3 4.8 %
[2017-02-16] MEDS ORDERED: INSULIN ASPART SUPPLEMENTAL SCALE SQ SCH (18:00)
[2017-02-16] MEDS ORDERED: VANCOMYCIN INJ 1,500 MG in SODIUM CHLORID 0.9% 500 ML INJ 500 ML IV SCH (21:00)
[2017-02-17] MEDS ORDERED: FUROSEMIDE 40 MG/4 ML VIAL IV PUSH SCH ×2 (09:00)
[2017-02-18] MEDS ORDERED: PHARMACY ORDERED LAB ONE (20:45)
== END 2017-02-16 15:20 | disposition short-term general hospital (02) | DRG 885 ==
LOC: NEPD 14:50 → H4EA 02-13 11:51
PROVIDERS: ADMIT Student in an Organized Health Care Education/Training Program; ATTEND Student in an Organized Health Care Education/Training Program
DX: F29 Unspecified psychosis not due to a substance or known physiological condition (principal); J96.91 Respiratory failure, unspecified with hypoxia; I11.0 Hypertensive heart disease with heart failure; J18.9 Pneumonia, unspecified organism; R45.851 Suicidal ideations; I50.9 Heart failure, unspecified; F03.90 Unspecified dementia, unspecified severity, without behavioral disturbance, psychotic disturbance, mood disturbance, and anxiety; E11.40 Type 2 diabetes mellitus with diabetic neuropathy, unspecified; E11.610 Type 2 diabetes mellitus with diabetic neuropathic arthropathy; E11.51 Type 2 diabetes mellitus with diabetic peripheral angiopathy without gangrene; E11.622 Type 2 diabetes mellitus with other skin ulcer; I25.10 Atherosclerotic heart disease of native coronary artery without angina pectoris; D64.9 Anemia, unspecified; F41.9 Anxiety disorder, unspecified; F32.9 Major depressive disorder, single episode, unspecified; E78.5 Hyperlipidemia, unspecified; N28.9 Disorder of kidney and ureter, unspecified; F20.9 Schizophrenia, unspecified; L97.519 Non-pressure chronic ulcer of other part of right foot with unspecified severity; E11.621 Type 2 diabetes mellitus with foot ulcer; Z79.82 Long term (current) use of aspirin; Z95.1 Presence of aortocoronary bypass graft; Z81.8 Family history of other mental and behavioral disorders; Z79.02 Long term (current) use of antithrombotics/antiplatelets; Z79.4 Long term (current) use of insulin
CPT/HCPCS: 36600; 70450; 71010; 71020; 71275; 73620; 80048; 80053; 80061; 82550; 82805; 82948; 83036; 83605; 83735; 83880; 84100; 84439; 84443; 84484; 85025; 85610; 85652; 85730; 87040; 93005; 93306; 94640; 94664; J0878; J1815; J1940; J3370; J7050; Q9967

== ENCOUNTER 2017-02-16 16:03 | Inpatient (IN) | payer MEDICARE ==
[~2017-02-16] VITALS: Ht 162.6 cm; Wt 70.2 kg
[2017-02-16 16:00] VITALS: BP 143/75; PULSE 67; PULSE 74; RESP 18; TEMP 97.9; O2SAT 97
[~2017-02-16 16:03] MED LIST: AMLO5TAB2 PO; ASPI-516 CHEW; ATOR40TA16 PO; CEFE2INJ2 IV; CIPR500T2 PO; CLOP75TA PO; DAPT500P IV; FURO20TA PO; GABA600T PO; HUMALOG SQ; HYDR-3801 PO; IPRASOL INH; LEVEMIR SQ; MAPA325T PO; METO100T PO; SERO25TA PO; SERT-132 PO
--- NOTE | 2017-02-16 16:49 | MB ---
cc: PREETHI GAN M.D. Corrected: 02/17/2017 DATE OF CONSULTATION: 02/16/2017 DATE OF : 1950 HISTORY OF PRESENT ILLNESS: The patient is a 66-year-old female with past medical history of Congestive heart failure, coronary artery disease with previous coronary artery bypass graft x3, hypertension, diabetes mellitus, depression, Who was admitted to [facility] psych unit for suicidal ideation. The patient also has bilateral diabetic foot ulcers and is receiving IV antibiotics. [facility] was called for respiratory distress. The patient had blood gas earlier today on 5 liters oxygen which showed a pH of 7.40, CO2 57, pAO2 83, bicarb 35 and saturation 93%. Throughout the day she required increased O2 after she was found hypoxic and she was subsequently placed on a non-rebreather mask. Repeat ABG from 02:30 p.m. showed pH of 7.44. CO2 41. Also, CO2 51, pAO2 111, bicarb fifth 34 and sats 95%. A stat chest x-ray was ordered which showed cardiomegaly with pulmonary vascular engorgement and bilateral interstitial prominence. She had a CT scan of the of the chest on February 12 which showed no evidence of PE however it showed bilateral pulmonary infiltrates with mediastinal adenopathy, cardiomegaly and significant coronary artery atherosclerotic calcifications. When seen the patient is on a non-rebreather mask. She is non verbal. The patient was recently discharged from [facility] after she was admitted there for shortness of breath and altered mental status. She was discharged on a February 11 on IV antibiotics. She has a PICC line in the right upper extremity and has a chronic ulcer on the right foot. PAST MEDICAL HISTORY Most of the history was obtained from reviewing medical records. Past medical history significant for chronic right foot ulcer Coronary artery disease with previous coronary artery bypass graft Congestive heart failure. Anemia. Depression Diabetes mellitus. PAST SURGICAL HISTORY Previous coronary artery bypass graft x3. ALLERGIES NO KNOWN DRUG ALLERGIES. SOCIAL HISTORY Nonsmoker, nondrinker. The patient is a resident of a [facility] facility. FAMILY HISTORY Noncontributory. CURRENT MEDICATIONS 1. Vancomycin. 2. Lasix. 3. Albuterol. 4. Levemir. 5. Insulin lap. 6. Levaquin. 7. Lopressor. 8. Hydralazine. 9. Lipitor. 10. Aspirin. 11. Norvasc. 12. Plavix. REVIEW OF SYSTEMS As per HPI. The rest of the systems limited. PHYSICAL EXAMINATION: IN GENERAL: limited physical exam 66-year-old female on a non-rebreather mask. VITAL SIGNS: Afebrile, temperature 98.7, pulse of 73, blood pressure 125/59, respiratory 26, saturation 99% on non-rebreather mask. HEAD, EYES, EARS, NOSE, AND THROAT: Atraumatic, normocephalic pupil equal and reactive to light accommodation X on muscles intact. Conjunctivae pink. Nonicteric sclerae. Oral mucosa within normal. NECK: Supple. No Jugular venous distention, no adenopathy or thyromegaly. Trachea midline. CARDIOVASCULAR SYSTEM: Regular rate and rhythm. Normal S1-S2. No murmurs, rubs or gallops noted. PULMONARY EXAMINATION: Bilateral equal entry. No crackles or wheezing. ABDOMEN: Soft, nontender, no distension. Positive bowel sounds. EXTREMITIES: No cyanosis, clubbing, mild bilateral pedal edema. Right foot ulcer noted. NEUROLOGIC: Nonverbal. LABORATORY DATA Sodium 138, 1004.6, chloride 99, CO2 32+, BUN 36, creatinine 1.18, glucose 133, magnesium 2.6, total bilirubin 0.6 and TSH 5.1, free T4 1.92, WBC 936.7, hemoglobin 8.3, hematocrit 26, platelet count 175, INR 1.1, PT 12.1, PTT 24.7. RADIOGRAPHY Chest x-ray From today showed cardiomegaly with pulmonary vascular engorgement and bilateral interstitial prominence. CT angiogram of the chest from February 12 showed no evidence of pulmonary embolus. IMPRESSION 1. Acute on chronic hypercapnic respiratory failure. 2. Encephalopathy. 3. Mild acute kidney injury. 4. Anemia 5. Bilateral pulmonary infiltrates. DIFFERENTIAL DIAGNOSIS: 1. Infectious process versus fluid overload. 2. History of congestive heart failure. 3. Coronary artery disease/ coronary artery bypass graft times three. 4. Hypertension 5. Diabetes mellitus. 6. Right foot plantar ulcer. RECOMMENDATIONS 1. Monitor neuro status closely and avoid any sedatives. 2. We will proceed with CT scan of the brain without contrast to rule out acute intracranial process and in addition will check EEG to rule out subclinical seizures. 3. We will consult neurology service. 4. Check ammonia level. TSH measured at 5.1. 5. Continue with oxygen maintain sats above 92%. 6. Bronchodilators in the form of DuoNeb q. 4+ q. two p.r.n. for shortness of breath. 7. Aspiration precautions. 8. Monitor heart rate and blood pressure closely and maintain MAP greater than 65 mmHg. 9. Continue with aspirin 81 mg daily 10. Lipitor 40 mg p.o. q.h.s. 11. hydralazine 100 mg t.i.d. 12. Lopressor 50 mg b.i.d. 13. Norvasc 5 mg daily. 14. The patient's was on Plavix 75 mg daily. 15. Echocardiogram from February 16 showed an EF of 50%. 16. Monitor renal function Is and Os and avoid any nephrotoxins. Decrease Lasix 240 mg daily. 17. Electrolyte replacement as needed. 18. We will check a baseline BNP level. 19. Keep n.p.o. for now and will consult speech therapy for evaluation. 20. Continue with antibiotics per Infectious Disease. 21. She is currently on IV vancomycin and Levaquin. Dr. Moulton from Infectious Disease service is following to monitor for signs of infections which include fever and WBC. 22. We will obtain a sputum culture with gram stain and urinalysis with culture if indicated. 23. Continue with sliding scale insulin with Accu-Chek's for glycemic control. Hold Levemir insulin for now. 24. Monitor CBC. 25. GI prophylaxis with Pepcid and DVT prophylaxis with SCDs. 26. Start heparin Subcu prophylaxis if CT scan of the brain negative. Further recommendations will be based on hospital course. MD MENDOZA Moon/laxmi /3:23 PM /4:07 PM JOHN
--- NOTE | 2017-02-16 17:09 | PD.CONS ---
History of Present Illness Service Neurology Consult Requested By [facility] Reason for Consult confusion Primary Care Physician Unknown History of Present Illness 66-year-old female brought in from [facility] for evaluation of suicidal ideation. was admitted to psych and now tx'd to icu for resp distress/chf after [facility] was called. noted to be hypoxic and hypercapnic. pt denies bearden, focal weakness. has non-rebreather on. medical chart reviewed. medical chart reviewed. Review of Systems as above and admit hp Past Family Social History Allergies: Coded Allergies: No Known Allergies (Unverified , 02/12/17) Past Medical History Charcot joint right ankle CAD with history of CABG in the past CHF Anemia Depression Diabetes mellitus Past Surgical History History of CABG 3 Family History unable to obtain Social History No history of alcohol, tobacco, illicit drug use. Review of Systems All other ROS: ROS reviewed as documented in chart Past Family Social History Allergies: Coded Allergies: No Known Allergies (Unverified , 02/12/17) Active Ordered Medications Current Medications Medications (Trade) Dose Ordered Sig/Fátima Route Start Time Stop Time Status Last Admin (Norvasc) 5 mg DAILY PO 02/17/17 09:00 UNV (Aspirin Chew) 81 mg DAILY CHEW 02/17/17 09:00 UNV (Plavix) 75 mg DAILY PO 02/17/17 09:00 UNV Exam I&O / VS Vital Signs Date Time Temp Pulse Resp B/P (MAP) Pulse Ox O2 Delivery O2 Flow Rate FiO2 02/16/17 16:00 67 02/16/17 16:00 97.9 74 18 143/75 (97) 97 General: Mild distress Neurologic: Alert Psychiatric: Cooperative Exam Comments alert, has non-rebreather on, ox 2, converses in turkish, eomi, follows, ou 3- 2mm, burks to gravity, le with dystrophic changes, planterflexor, no clonus Review/Management Diagnosis/Plan: (1) Encephalopathy, metabolic ICD Codes: G93.41 - Metabolic encephalopathy Status: Acute Plan: likely related to hypoxia/hypercapnia ?chf exacerbation hx of underlying dementia? recs ox 2 and following for me cardiopulmonary management f/u eeg/mri with hx of confusion/dementia and recent worsening when medically stable (2) CHF (congestive heart failure) ICD Codes: I50.9 - Heart failure, unspecified Status: Acute (3) Respiratory distress ICD Codes: R06.03 - Acute respiratory distress Status: Acute (4) DEMENTIA IN OTH DISEASES CLASSD ELSWHR W/O BEHAVRL DISTURB ICD Codes: F02.80 - DEMENTIA IN OTH DISEASES CLASSD ELSWHR W/O BEHAVRL DISTURB Status: Chronic Problem Qualifiers (1) CHF (congestive heart failure): Darien Rice MD Feb 16, 2017 17:09
[2017-02-16] MEDS ORDERED: Vancomycin Consult Pharmacy 1 EA OTHER SCH (17:15)
[2017-02-16] MEDS ORDERED: DEXTROSE 50% IN WATER 50 ML VIAL(D50) IV PUSH PRN ×2 (17:15→17:45)
[2017-02-16] MEDS ORDERED: GLUCAGON 1 MG/ML VIAL OTHER PRN ×2 (17:15→17:45)
[2017-02-16] MEDS ORDERED: VANCOMYCIN INJ 1,750 MG in SODIUM CHLORID 0.9% 500 ML INJ 500 ML IV ONE (17:45)
[2017-02-16] MEDS ORDERED: MISCELLANEOUS NURSING INFORMATION XX SCH (17:45)
[2017-02-16] MEDS ORDERED: CHLORHEXIDINE GLUCONATE 2 % 1 PACK (2 CLOTHS) TOP PRN (17:45)
[2017-02-16] MEDS ORDERED: RESP: ALBUTEROL 2.5 MG/IPRATROPIUM 0.5 MG NEB (PRN) NEB (17:45)
--- NOTE | 2017-02-16 17:47 | HHI.HP ---
HPI Service [facility] Primary Care Physician Unknown Admission Diagnosis hypoxia mental status changes Diagnoses: (1) DEMENTIA IN OTH DISEASES CLASSD ELSWHR W/O BEHAVRL DISTURB Diagnosis: Secondary (2) Encephalopathy, metabolic Diagnosis: Principal (3) CHF (congestive heart failure) Diagnosis: Principal (4) Respiratory distress Diagnosis: Principal (5) Unspecified psychosis Diagnosis: Principal Travel History International Travel<30 Days: No Contact w/Intl Traveler <30 Da: No Traveled to Known Affected Are: No History of Present Illness 66-year-old female brought in from SNF for evaluation of suicidal ideation. was admitted to MEDICAL PSYCHIATRY and now TRANSFERRED to ICU for RESPIRATORY DISTRESS AND COPD AND CHF after [facility] was called. PATIENT WAS noted to be hypoxic and hypercapnic. limited hx from pt. medical chart reviewed. Review of Systems ROS Limitations: Altered Mental Status, Unresponsive, Uncooperative, Language Barrier Except as stated in HPI: all other systems reviewed are Neg Past Family Social History Past Medical History Charcot joint right ankle CAD with history of CABG in the past CHF Anemia Depression Diabetes mellitus DEMENTIA Past Surgical History CABG X3 Reported Medications Reported Meds & Active Scripts Active Seroquel (Quetiapine Fumarate) 25 Mg Tab 12.5 Mg PO BID 30 Days Sertraline (Sertraline HCl) 50 Mg Tab 50 Mg PO DAILY Reported Metoprolol Tartrate 100 Mg Tab 100 Mg PO DAILY Duoneb (Ipratropium-Albuterol Neb) 0.5-2.5 Mg/3 Ml Neb 1 Nebule INH Q8HR NEB Levemir Inj (Insulin Detemir) 1,000 unit/ 10 ML Vial 12 Units SQ HS Do not mix with any other Insulin. Hydralazine (Hydralazine HCl) 100 Mg Tab 100 Mg PO TID Take with meals Humalog Inj (Insulin Human Lispro) 1,000 Unit/10 Ml Vial 1-9 Units SQ ACHS Max dose at bedtime:( )units; sugars< 70,(0)units; sugars 150-199,(1)unit; sugars 200-249,(3)units; sugars 250-299,(5)units; sugars 300-349,(7)units; sugars more than 349,(9)units. Gabapentin 600 Mg Tab 600 Mg PO TID Furosemide 20 Mg Tab 20 Mg PO DAILY Cubicin Inj (Daptomycin) 500 Mg Bag 500 Mg IV Q24H Must dilute in appropriate IV Fluid prior to administration Clopidogrel (Clopidogrel Bisulfate) 75 Mg Tab 75 Mg PO DAILY Ciprofloxacin (Ciprofloxacin HCl) 500 Mg Tab 500 Mg PO BID Cefepime Inj (Cefepime HCl) 2 Gm/100 Ml Bagp 2 Gm IV Q12H Atorvastatin (Atorvastatin Calcium) 40 Mg Tab 40 Mg PO HS Aspirin 81 Mg Chew 81 Mg CHEW DAILY Amlodipine (Amlodipine Besylate) 5 Mg Tab 5 Mg PO DAILY Mapap (Acetaminophen) 325 Mg Tab 650 Mg PO Q4-6H PRN Allergies: Coded Allergies: No Known Allergies (Unverified , 02/12/17) Active Ordered Medications Inpatient Medications Amlodipine Besylate (Norvasc) 5 mg DAILY PO ; Start 02/17/17 at 09:00 Aspirin (Aspirin Chew) 81 mg DAILY CHEW ; Start 02/17/17 at 09:00 Clopidogrel Bisulfate (Plavix) 75 mg DAILY PO ; Start 02/17/17 at 09:00 Dextrose (D50w (Vial) Inj) 50 ml UNSCH PRN IV PUSH HYPOGLYCEMIA-SEE COMMENTS; Start 02/16/17 at 17:15 Glucagon (Glucagon Inj) 1 mg UNSCH PRN OTHER HYPOGLYCEMIA-SEE COMMENTS; Start 02/16/17 at 17:15 Hydralazine HCl (Apresoline) 100 mg Q8HR PO ; Start 02/16/17 at 22:00 Insulin Human Regular (NovoLIN R SUPPLEMENTAL SCALE) 1 Q4H SQ ; Start 02/16/17 at 18:00 Metoprolol Tartrate (Lopressor) 50 mg Q12HR PO ; Start 02/16/17 at 21:00 Pharmacy Profile Note 0 ml @ 0 mls/hr UNSCH OTHER ; Start 02/16/17 at 17:15; Status UNV Current Medications Amlodipine Besylate (Norvasc) 5 mg DAILY PO ; Start 02/17/17 at 09:00 Aspirin (Aspirin Chew) 81 mg DAILY CHEW ; Start 02/17/17 at 09:00 Clopidogrel Bisulfate (Plavix) 75 mg DAILY PO ; Start 02/17/17 at 09:00 Dextrose (D50w (Vial) Inj) 50 ml UNSCH PRN IV PUSH HYPOGLYCEMIA-SEE COMMENTS; Start 02/16/17 at 17:15 Glucagon (Glucagon Inj) 1 mg UNSCH PRN OTHER HYPOGLYCEMIA-SEE COMMENTS; Start 02/16/17 at 17:15 Insulin Human Regular (NovoLIN R SUPPLEMENTAL SCALE) 1 Q4H SQ ; Start 02/16/17 at 18:00 Metoprolol Tartrate (Lopressor) 50 mg Q12HR PO ; Start 02/16/17 at 21:00 Hydralazine HCl (Apresoline) 100 mg Q8HR PO ; Start 02/16/17 at 22:00 Pharmacy Profile Note 0 ml @ 0 mls/hr UNSCH OTHER ; Start 02/16/17 at 17:15; Status UNV Family History UNOBTAINABLE FROM PATIENT Social History LIVES IN SNF IN [place] NO ALCOHOL OR TOBACCO OR ILLICITS RECENTLY Physical Exam Vital Signs Vital Signs Date Time Temp Pulse Resp B/P (MAP) Pulse Ox O2 Delivery O2 Flow Rate FiO2 02/16/17 16:00 67 02/16/17 16:00 97.9 74 18 143/75 (97) 97 Physical Exam GENERAL: This is a well-nourished, well-developed patient, in no apparent distress.VERY LETHARGIC DUE TO CO2 NARCOSIS AND DEMENTIA- ORIENTED TO NAME AND YEAR ONLY NOT PRESIDENT STATES ITS BILL ADRY- STATED SHE WAS IN [place] SKIN: No rashes, ecchymoses or lesions. Cool and dry. HEAD: Atraumatic. Normocephalic. No temporal or scalp tenderness. EYES: Pupils equal round and reactive. Extraocular motions intact. No scleral icterus. No injection or drainage. ENT: Nose without bleeding, purulent drainage or septal hematoma. Throat without erythema, tonsillar hypertrophy or exudate. Uvula midline. Airway patent. NECK: Trachea midline. No JVD or lymphadenopathy. Supple, nontender, no meningeal signs. CARDIOVASCULAR: Regular rate and rhythm without murmurs, gallops, or rubs. RESPIRATORY: Breath sounds equal bilaterally. No wheezes, rales, or rhonchi. COARSE BS BL GASTROINTESTINAL: Abdomen soft, non-tender, nondistended. No hepato-splenomegaly , or palpable masses. No guarding. MUSCULOSKELETAL: Extremities without clubbing, cyanosis, or edema. No joint tenderness, effusion, or edema noted. No calf tenderness. Negative Homans sign bilaterally. NEUROLOGICAL: NOT Awake and alert. Cranial nerves II through XII intact. Motor and sensory grossly within normal limits.4 out of 5 muscle strength in all muscle groups. ABNormal speech. INSIGHT AND JUDGEMENT IS POOR MOOD AND BEHAVIOR IS INAPPROPRIATE Laboratory Other Results Laboratory Tests Test 02/14/17 21:58 02/15/17 06:04 02/16/17 08:55 White Blood Count 7.6 TH/MM3 6.7 TH/MM3 Red Blood Count 3.19 MIL/MM3 3.09 MIL/MM3 Hemoglobin 8.8 GM/DL 8.3 GM/DL Hematocrit 27.6 % 26.5 % Mean Corpuscular Volume 86.6 FL 85.9 FL Mean Corpuscular Hemoglobin 27.5 PG 26.9 PG Mean Corpuscular Hemoglobin Concent 31.8 % 31.4 % Red Cell Distribution Width 19.4 % 18.8 % Platelet Count 178 TH/MM3 175 TH/MM3 Mean Platelet Volume 7.4 FL 7.4 FL Neutrophils (%) (Auto) 78.4 % 71.8 % Lymphocytes (%) (Auto) 9.9 % 14.7 % Monocytes (%) (Auto) 8.9 % 10.9 % Eosinophils (%) (Auto) 2.4 % 2.1 % Basophils (%) (Auto) 0.4 % 0.5 % Neutrophils # (Auto) 6.0 TH/MM3 4.8 TH/MM3 Lymphocytes # (Auto) 0.7 TH/MM3 1.0 TH/MM3 Monocytes # (Auto) 0.7 TH/MM3 0.7 TH/MM3 Eosinophils # (Auto) 0.2 TH/MM3 0.1 TH/MM3 Basophils # (Auto) 0.0 TH/MM3 0.0 TH/MM3 CBC Comment DIFF FINAL DIFF FINAL Differential Comment Blood Urea Nitrogen 29 MG/DL 27 MG/DL 36 MG/DL Creatinine 1.05 MG/DL 0.97 MG/DL 1.18 MG/DL Random Glucose 319 MG/DL 195 MG/DL 133 MG/DL Total Protein 7.7 GM/DL 7.9 GM/DL Albumin 2.6 GM/DL 2.5 GM/DL Calcium Level 8.4 MG/DL 8.4 MG/DL 8.9 MG/DL Alkaline Phosphatase 93 U/L 106 U/L Aspartate Amino Transf (AST/SGOT) 18 U/L 17 U/L Alanine Aminotransferase (ALT/SGPT) 21 U/L 25 U/L Total Bilirubin 0.5 MG/DL 0.6 MG/DL Sodium Level 138 MEQ/L 139 MEQ/L 138 MEQ/L Potassium Level 4.7 MEQ/L 4.5 MEQ/L 4.6 MEQ/L Chloride Level 99 MEQ/L 100 MEQ/L 99 MEQ/L Carbon Dioxide Level 33.4 MEQ/L 32.8 MEQ/L 32.3 MEQ/L Anion Gap 6 MEQ/L 6 MEQ/L 7 MEQ/L Estimat Glomerular Filtration Rate 52 ML/MIN 57 ML/MIN 46 ML/MIN Erythrocyte Sedimentation Rate 76 mm/hr Hemoglobin A1c 7.4 % Triglycerides Level 63 MG/DL Cholesterol Level 96 MG/DL LDL Cholesterol 41 MG/DL HDL Cholesterol 42.0 MG/DL Cholesterol/HDL Ratio 2.28 RATIO Phosphorus Level 3.9 MG/DL Magnesium Level 2.6 MG/DL Free Thyroxine 1.92 NG/DL Thyroid Stimulating Hormone 3rd Gen 5.100 uIU/ML Imaging Imaging Last Impressions Foot X-Ray 02/14/17 0000 Signed Impressions: Service Date/Time: Tuesday, February 14, 2017 18:58 - CONCLUSION: 1. There is ulceration along the plantar aspect of the foot. No erosion is appreciated to suggest osteomyelitis by plain film imaging. 2. Lisfranc joint is not well-visualized but appears disrupted. The bones are undermineralized. Daniel Reyes MD CT Angiography 02/12/17 1610 Signed Impressions: Service Date/Time: Sunday, February 12, 2017 17:39 - CONCLUSION: 1. No pulmonary embolus. 2. Bilateral pulmonary infiltrates. 3. Mediastinal adenopathy likely reactive in nature. 4. Bilateral pleural effusions. 5. Cardiomegaly. 6. Significant coronary artery atherosclerotic calcifications. Uzair Duran Jr., MD Chest X-Ray 02/12/17 1544 Signed Impressions: Service Date/Time: Sunday, February 12, 2017 17:08 - CONCLUSION: Moderate congestive failure. Ag Del Toro MD FACR Caprini VTE Risk Assessment Caprini VTE Risk Assessment: Mod/High Risk (score >= 2) Caprini Risk Assessment Model Point Value = 1 Point Value = 2 Point Value = 3 Point Value = 5 Age 41-60 Minor surgery BMI > 25 kg/m2 Swollen legs Varicose veins or History of unexplained or recurrent spontaneous Oral contraceptives or hormone replacement Sepsis (< 1 month) Serious lung disease, including pneumonia (< 1 month) Abnormal pulmonary function Acute myocardial infarction Congestive heart failure (< 1 month) History of inflammatory bowel disease Medical patient at bed rest Age 61-74 Arthroscopic surgery Major open surgery (> 45 min) Laparoscopic surgery (> 45 min) Malignancy Confined to bed (> 72 hours) Immobilizing plaster cast Central venous access Age >= 75 History of VTE Family history of VTE Factor V Leiden Prothrombin [id number] Lupus anticoagulant Anticardiolipin antibodies Elevated serum homocysteine Heparin-induced thrombocytopenia Other congenital or acquired thrombophilia Stroke (< 1 month) Elective arthroplasty Hip, pelvis, or leg fracture Acute spinal cord injury (< 1 month) Prophylaxis Regimen Total Risk Factor Score Risk Level Prophylaxis Regimen 0-1 Low Early ambulation 2 Moderate Order ONE of the following: *Sequential Compression Device (SCD) *Heparin 5000 units SQ BID 3-4 Higher Order ONE of the following medications: *Heparin 5000 units SQ TID *Enoxaparin/Lovenox 40 mg SQ daily (WT < 150 kg, CrCl > 30 mL/min) *Enoxaparin/Lovenox 30 mg SQ daily (WT < 150 kg, CrCl > 10-29 mL/min) *Enoxaparin/Lovenox 30 mg SQ BID (WT < 150 kg, CrCl > 30 mL/min) AND/OR *Sequential Compression Device (SCD) 5 or more Highest Order ONE of the following medications: *Heparin 5000 units SQ TID (Preferred with Epidurals) *Enoxaparin/Lovenox 40 mg SQ daily (WT < 150 kg, CrCl > 30 mL/min) *Enoxaparin/Lovenox 30 mg SQ daily (WT < 150 kg, CrCl > 10-29 mL/min) *Enoxaparin/Lovenox 30 mg SQ BID (WT < 150 kg, CrCl > 30 mL/min) AND *Sequential Compression Device (SCD) Assessment and Plan Problem List: (1) Unspecified psychosis ICD Code: F29 - Unspecified psychosis not due to a substance or known physiological condition (2) DEMENTIA IN OTH DISEASES CLASSD ELSWHR W/O BEHAVRL DISTURB ICD Code: F02.80 - DEMENTIA IN OTH DISEASES CLASSD ELSWHR W/O BEHAVRL DISTURB Status: Chronic (3) Encephalopathy, metabolic ICD Code: G93.41 - Metabolic encephalopathy Status: Acute (4) CHF (congestive heart failure) ICD Code: I50.9 - Heart failure, unspecified Status: Acute (5) Respiratory distress ICD Code: R06.03 - Acute respiratory distress Status: Acute (6) Hypoxia ICD Code: R09.02 - Hypoxemia Assessment and Plan TRANSFERRED TO ICU AT REQUEST OF PSYCHIATRY STARTING THIS MORNING PATIENT STARTED TO DECOMPENSATE //Atypical pneumonia. //Hypoxic respiratory failure. Pulse oximetry 82 on room air on admission. ON PARTIAL AT 15L //Possible CHF exacerbation WILL INCREASE LASIX TO 40MG IV DAILY -With productive cough -CT pulmonary angiogram with mediastinal adenopathy, bilateral pulmonary infiltrates. Duo Nebs, Azithromycin.LEVAQUIN. VANCO Continue diet with 1800 mL fluid restriction. WILL GET AM LABS HYPOXIA- MAY NEED STEROIDS AND NEB TREATMENT //Hypertension. //CAD status post CABG 3 //history of CHF. Blood pressure acceptable. Continue home medications. Continue aspirin and Plavix. Continue to monitor. = BNP 284 on admission. Echocardiogram pending. Continue fluid restrictions. DIURESE //Diabetes mellitus type 2. -Blood sugars elevated. Insulin sliding scale added. Continue diabetic diet. continue Levemir.. //Diabetic neuropathy. Due to renal sufficiency, will decrease gabapentin dose. Continue to monitor. //Hyperlipidemia. Continue home medications. //Bilateral feet with diabetic ulcers. Right worse than left. Patient is to be continued on Cipro and daptomycin until 02/19. Requesting outside records, still pending. -ESR 76. =Infectious disease consult at. Continue on vancomycin as per infectious disease. Appreciate assistance = Podiatry consulted follow-up recommendations. //Anemia. Hemoglobin 8.9. Uncertain chronicity. No signs of bleeding. Reorder labs. //Renal insufficiency. Creatinine 1.18. On admission. GFR 49 on admission. Uncertain baseline. = Creatinine 0.97. Outside records still pending. Discharge Planning CONTINUE VANCO, ZITHRO, LEVAQUIN INCREASE LASIX TO 40MG IV DAILY AM LAB CONSULT PT AND OT FOR LEFT UE WEAKNESS INCENTIVE SPIROMETRY Code Status FULL CODE Discussed Condition With RNS AND PT Physician Certification 2 Midnight Certification Type: Admission for Inpatient Services Order for Inpatient Services The services are ordered in accordance with Medicare regulations or non- Medicare payer requirements, as applicable. In the case of services not specified as inpatient-only, they are appropriately provided as inpatient services in accordance with the 2-midnight benchmark. Estimated LOS (days): 5 5 days is the estimated time the patient will need to remain in the hospital, assuming treatment plan goals are met and no additional complications. Post-Hospital Plan: Not yet determined Notes: GREATER THAN 90 MINUTES SPENT IN CARE IN PSYCHIATRY AND 90 MINUTES SPENT IN INPATIENT IN THE ICU Problem Qualifiers (1) CHF (congestive heart failure): Ag Shin DO Feb 16, 2017 17:47
[2017-02-16 18:00] VITALS: PULSE 67
[2017-02-16] MEDS ORDERED: INSULIN NovoLIN REGULAR SUPPLEMENTAL SCALE SQ SCH (18:00)
[2017-02-16] MEDS ORDERED: GABAPENTIN 300 MG CAP PO SCH (18:00)
[2017-02-16] MEDS ORDERED: PILL SPLITTER OTHER PRN (19:30)
[2017-02-16 20:00] VITALS: BP 157/76; PULSE 74; RESP 15; TEMP 97; O2SAT 96
[2017-02-16] MEDS ORDERED: hydrALAZINE HCL 20 MG/ML VIAL IV PUSH PRN (20:15)
--- NOTE | 2017-02-16 20:19 | MB ---
cc: CHIDI MURILLO DATE OF CONSULTATION 02/16/17 REASON FOR CONSULTATION Respiratory failure. HISTORY OF PRESENT ILLNESS Mrs. Loza is a 56-year-old female who was admitted to the Intensive Care Unit for hypoxic and hypercapneic respiratory failure with increasing respiratory distress, placed on oxygen therapy, bronchodilator therapy with improvement and respiratory distress as well as oxygenation. PAST MEDICAL HISTORY 1. Chronic obstructive pulmonary disease 2. Congestive heart failure. 3. Coronary artery disease 4. Mood disorder namely depression 5. Dementia 6. Diabetes. She lives at an SNF 7. Had coronary artery bypass surgery in the past MEDICATIONS 1. Seroquel 2. Sertraline. 3. Metoprolol. 4. Duoneb 5. Levemir 6. Hydralazine 7. Gabapentin 8. Lasix 9. Cubicin 10. Clopidigrel 11. Ciprofloxacin 12. Cefepime 13. Atorvastatin 14. Amlodipine 15. Aspirin. ALLERGIES None known to medication FAMILY HISTORY Noncontributory. REVIEW OF SYSTEMS A 12-point review of systems as per HPI and past history otherwise negative. PHYSICAL EXAMINATION GENERAL: The patient is alert. VITAL SIGNS: Temperature 97.9, pulse 70, respiration 18, blood pressure 140/90. HEENT: Exam unremarkable. Eyes without icterus. NECK: Without adenopathy or thyroid enlargement. Central trachea. CHEST: Few scattered rhonchi bilaterally. CARDIAC: PMI distant. S1-S2 audible. No murmur or rub. ABDOMEN: Lax, audible bowel sounds. EXTREMITIES: No clubbing, cyanosis or edema. LABORATORY DATA White count 6.7, hemoglobin 8.3, hematocrit 26. Sodium 138, potassium 4.6, BUN 36, creatinine 1.1. IMAGING STUDIES CT angiogram without evidence of pulmonary embolism. Bilateral lung infiltrates, mediastinal adenopathy likely reactive. Bilateral pleural effusions, cardiomegaly, coronary artery calcification noted. IMPRESSION 1. Acute respiratory failure hypoxic hypercapneic, 2. Dementia 3. Congestive heart failure 4. COPD. 5. Pneumonia 6. Hypertension 7. Diabetes mellitus. 8. Hyperlipidemia. PLAN The patient will be maintained on oxygen therapy as needed. Bronchodilator therapy has been initiated appropriately so as well as antibiotic therapy. Chest x-ray, arterial blood gas will be followed and, depending on the patient's progress, would proceed further. I do thank you for asking me to partake in Mrs. Loza's care. MD KATHRINE Harvey/ /7:30 PM /8:05 PM
[2017-02-16 20:30] VITALS: O2SAT 97
[2017-02-16 20:30] LABS: BLOOD GAS BASE EXCESS 8.5 mmol/L (-2-2); BLOOD GAS CARBOXYHEMOGLOBIN 1.3 % (0-4); BLOOD GAS HCO3 35 mmol/L (22-26); BLOOD GAS METHEMOGLOBIN 1.3 % (0-2); BLOOD GAS O2 HGB SATURATION 97 % (90-100); BLOOD GAS OXYGEN CONTENT 11.8 Vol % (12.0-20.0); BLOOD GAS PCO2 69 mmHg (38-42); BLOOD GAS PO2 166 mmHg (61-120); BLOOD GAS TOTAL HGB 8.4 G/DL (12.0-16.0); TEMP CORR TO 98.6
[2017-02-16 20:31] LABS: CRITICAL VALUE YES; DRAW SITE RT RADIAL; LITER FLOW 13 L/M; NUMBER OF ARTERIAL PUNCTURES 1; OXYGEN DEVICE PRB; STAT NO; ULNAR PULSE PRESENT
[2017-02-16] MEDS: INSULIN ASPART SUPPLEMENTAL SCALE SQ SCH (21:00)
[2017-02-16] MEDS: METOPROLOL TARTRATE 50 MG TAB PO SCH (21:00)
[2017-02-16] MEDS: ATORVASTATIN 40 MG TAB PO SCH (21:00)
[2017-02-16] MEDS: guaiFENesin E.R. 600 MG TAB PO SCH (21:00)
[2017-02-16] MEDS: methylPREDNISolone SOD SUCC 40 MG/1 ML VIAL IV PUSH SCH (21:35)
[2017-02-16 22:00] VITALS: PULSE 69
[2017-02-16] MEDS: hydrALAZINE HCL 100 MG TAB PO SCH (22:00)
[2017-02-16 23:26] VITALS: O2SAT 96
[2017-02-17] VITALS (14 sets, daily range): BP systolic 123–168; BP diastolic 59–100; PULSE 74–92; RESP 14–24; TEMP 96.9–98.4; O2SAT 93–99
[2017-02-17 01:25] LABS: BLOOD GAS BASE EXCESS 7.6 mmol/L (-2-2); BLOOD GAS CARBOXYHEMOGLOBIN 1.4 % (0-4); BLOOD GAS HCO3 33 mmol/L (22-26); BLOOD GAS METHEMOGLOBIN 1.2 % (0-2); BLOOD GAS O2 HGB SATURATION 96 % (90-100); BLOOD GAS OXYGEN CONTENT 12.6 Vol % (12.0-20.0); BLOOD GAS PCO2 60 mmHg (38-42); BLOOD GAS PO2 117 mmHg (61-120); BLOOD GAS TOTAL HGB 9.2 G/DL (12.0-16.0); TEMP CORR TO 98.6
[2017-02-17 01:26] LABS: CRITICAL VALUE YES; OXYGEN DEVICE BIPAP
[2017-02-17 01:27] LABS: DRAW SITE RT BRACHIAL; FIO2 40 %; NUMBER OF ARTERIAL PUNCTURES 2; STAT NO
[2017-02-17] MEDS: methylPREDNISolone SOD SUCC 40 MG/1 ML VIAL IV PUSH SCH ×4 (02:22→21:08)
[2017-02-17] MEDS: CHLORHEXIDINE GLUCONATE 2 % 1 PACK (2 CLOTHS) TOP SCH (04:00)
[2017-02-17] MEDS: hydrALAZINE HCL 100 MG TAB PO SCH ×3 (06:00→21:23)
[2017-02-17 07:23] LABS: BASOPHIL % 0.5 % (0.0-2.0); EOSINOPHIL % 0.2 % (0.0-4.0); HEMATOCRIT 29.4 % (35.0-46.0); HEMO FLAGS DIFF FINAL; LYMPH % 7.5 % (9.0-44.0); LYMPHOCYTE # 0.4 TH/MM3 (1.0-4.8); MEAN CELL VOLUME 85.9 FL (80.0-100.0); MEAN CORPUSCULAR HEMOGLOBIN 26.8 PG (27.0-34.0); MEAN CORPUSCULAR HGB CONC 31.2 % (32.0-36.0); MONO % 1.7 % (0.0-8.0); NEUT % 90.1 % (16.0-70.0); PLATELET COUNT 174 TH/MM3 (150-450); RED BLOOD COUNT 3.42 MIL/MM3 (4.00-5.30); RED CELL DISTRIBUTION WIDTH 18.4 % (11.6-17.2); WHITE BLOOD COUNT 5.5 TH/MM3 (4.0-11.0)
[2017-02-17 07:29] LABS: ALT (GPT) 24 U/L (10-53); ANION GAP 8 MEQ/L (5-15); AST (GOT) 18 U/L (15-37); BLOOD UREA NITROGEN 48 MG/DL (7-18); CHLORIDE 98 MEQ/L (98-107); GLOMERULAR FILTRATION RATE 42 ML/MIN (>89); MAGNESIUM 2.5 MG/DL (1.5-2.5); SODIUM (NA) 137 MEQ/L (136-145)
[2017-02-17 07:43] LABS: ALKALINE PHOSPHATASE 113 U/L (45-117); TOTAL BILIRUBIN ADULT 0.6 MG/DL (0.2-1.0)
[2017-02-17] MEDS: INSULIN ASPART SUPPLEMENTAL SCALE SQ SCH ×4 (08:00→21:24)
--- NOTE | 2017-02-17 08:56 | HHI.CCPN ---
Subjective Remarks/Hospital Course The patient is a 66-year-old female with past medical history of Congestive heart failure, coronary artery disease with previous coronary artery bypass graft x3, hypertension, diabetes mellitus, depression, Who was admitted to med psych unit for suicidal ideation. Sh also has bilateral diabetic foot ulcers and is receiving IV antibiotics[facility]. The patient had blood gas earlier today on 5 liters oxygen which showed a pH of 7.40, CO2 57, pAO2 83, bicarb 35 and saturation 93%. Throughout the day she required increased O2 after she was found hypoxic and she was subsequently placed on a non-rebreather mask. Repeat ABG from 02:30 p.m. showed pH of 7.44. CO2 41. Also, CO2 51, pAO2 111, bicarb fifth 34 and sats 95%. A stat chest x-ray was ordered which showed cardiomegaly with pulmonary vascular engorgement and bilateral interstitial prominence. She had a CT scan of the of the chest on February 12 which showed no evidence of PE however it showed bilateral pulmonary infiltrates with mediastinal adenopathy, cardiomegaly and significant coronary artery atherosclerotic calcifications. When seen the patient is on a non-rebreather mask. She is non verbal. The patient was recently discharged from [facility] after she was admitted there for shortness of breath and altered mental status. She was discharged on a February 11 on IV antibiotics. She has a PICC line in the right upper extremity and has a chronic ulcer on the right foot. 02/17 Patient had ABG last night showed PH 7.32 with pCO2 69 she was subsequently placed on BIPAP 10/5 with 40% FIO2. Repeat ABG early this morning showed improvements in her resp. acidosis CT brain yesterday showed no acute findings. For MRI brain and EEG today. Afebrile. Objective Vital Signs Date Time Temp Pulse Resp B/P (MAP) Pulse Ox O2 Delivery O2 Flow Rate FiO2 02/17/17 08:00 97.9 85 14 147/66 (93) 94 02/17/17 07:00 Bi-Pap 40 02/17/17 02:57 12.00 Intake and Output 02/17/17 02/17/17 02/18/17 08:00 16:00 00:00 Output Total 0 ml Balance 0 ml Result Diagram: 02/17/17 0510 02/17/17 0510 Other Results Laboratory Tests Test 02/16/17 16:00 02/16/17 17:20 02/16/17 20:16 02/17/17 01:14 Nasal Screen MRSA (PCR) MRSA NOT DETECTED Ammonia 35 MCMOL/L B-Type Natriuretic Peptide 213 PG/ML Vitamin B12 Level 590 PG/ML Blood Gas Puncture Site RT RADIAL RT BRACHIAL Blood Gas Patient Temperature 98.6 98.6 Blood Gas HCO3 35 mmol/L 33 mmol/L Blood Gas Base Excess 8.5 mmol/L 7.6 mmol/L Blood Gas Oxygen Saturation 97 % 96 % Arterial Blood pH 7.32 7.36 Arterial Blood Partial Pressure CO2 69 mmHg 60 mmHg Arterial Blood Partial Pressure O2 166 mmHg 117 mmHg Arterial Blood Oxygen Content 11.8 Vol % 12.6 Vol % Arterial Blood Carboxyhemoglobin 1.3 % 1.4 % Arterial Blood Methemoglobin 1.3 % 1.2 % Blood Gas Hemoglobin 8.4 G/DL 9.2 G/DL Oxygen Delivery Device PRB BIPAP Blood Gas Liter Flow 13 L/M Blood Gas Ventilator Setting 01/07 BUR 8 40% Blood Gas Inspired Oxygen 40 % Test 02/17/17 05:10 White Blood Count 5.5 TH/MM3 Red Blood Count 3.42 MIL/MM3 Hemoglobin 9.2 GM/DL Hematocrit 29.4 % Mean Corpuscular Volume 85.9 FL Mean Corpuscular Hemoglobin 26.8 PG Mean Corpuscular Hemoglobin Concent 31.2 % Red Cell Distribution Width 18.4 % Platelet Count 174 TH/MM3 Mean Platelet Volume 8.1 FL Neutrophils (%) (Auto) 90.1 % Lymphocytes (%) (Auto) 7.5 % Monocytes (%) (Auto) 1.7 % Eosinophils (%) (Auto) 0.2 % Basophils (%) (Auto) 0.5 % Neutrophils # (Auto) 5.0 TH/MM3 Lymphocytes # (Auto) 0.4 TH/MM3 Monocytes # (Auto) 0.1 TH/MM3 Eosinophils # (Auto) 0.0 TH/MM3 Basophils # (Auto) 0.0 TH/MM3 CBC Comment DIFF FINAL Differential Comment Blood Urea Nitrogen 48 MG/DL Creatinine 1.28 MG/DL Random Glucose 140 MG/DL Total Protein 8.0 GM/DL Albumin 2.5 GM/DL Calcium Level 8.7 MG/DL Phosphorus Level 5.5 MG/DL Magnesium Level 2.5 MG/DL Alkaline Phosphatase 113 U/L Aspartate Amino Transf (AST/SGOT) 18 U/L Alanine Aminotransferase (ALT/SGPT) 24 U/L Total Bilirubin 0.6 MG/DL Sodium Level 137 MEQ/L Potassium Level 5.0 MEQ/L Chloride Level 98 MEQ/L Carbon Dioxide Level 31.0 MEQ/L Anion Gap 8 MEQ/L Estimat Glomerular Filtration Rate 42 ML/MIN Free Thyroxine 2.10 NG/DL Thyroid Stimulating Hormone 3rd Gen 3.350 uIU/ML Objective Remarks GENERAL: Patient is 66 yo on BIPAP 10/ with 40% FIO2. SKIN: Warm and dry. HEAD: Normocephalic. EYES: No scleral icterus. No injection or drainage. NECK: Supple, trachea midline. No JVD or lymphadenopathy. CARDIOVASCULAR: Regular rate and rhythm without murmurs, gallops, or rubs. RESPIRATORY: Breath sounds equal bilaterally. No accessory muscle use. GASTROINTESTINAL: Abdomen soft, non-tender, nondistended. MUSCULOSKELETAL: No cyanosis, or edema. Neuro: Awake A/P Assessment and Plan 1. Acute on chronic hypercapnic respiratory failure. 2. Encephalopathy. 3. Mild acute kidney injury. 4. Anemia 5. Bilateral pulmonary infiltrates. ddx Infectious process versus fluid overload. 6. History of congestive heart failure. 7. Coronary artery disease/ coronary artery bypass graft times three. 8. Hypertension 9. Diabetes mellitus. 10. Right foot plantar ulcer. Plan Neuro; Monitor neuro status closely and avoid any sedatives. On Zoloft and Seroquel CT brain 02/16: No acute findings. For MRI and EEG today. Neuro is following- Dr. Ang. TSH measured at 5.1. Ammonia level 35 Pulm: Continue with oxygen maintain sats above 92%. Bronchodilators, Aspiration precautions. On Solumederol 40mg Q6 CV: Monitor HR and BP and maintain MAP> 65 mmHg. Continue with ASA 81 mg daily, Lipitor 40 mg p.o. q.h.s., hydralazine 100 mg t.i.d., Lopressor 50 mg b.i.d. Norvasc 5 mg daily. On Plavix 75 mg daily. Echo from 02/16 showed an EF of 50%. : Monitor renal function Is and Os and avoid any nephrotoxins. Electrolyte replacement as needed. GI: Speech eval, diet per speech. ID: Continue abx (on IV vanco, Levaquin). ID is following Monitor for signs of infections( fever and WBC) check sputum cx, UA with cx if indicated Endo:SSI with Accu-Chek's for glycemic control. TSH: 3.35, FT4: 2.10 Heme: Monitor CBC. GI prophylaxis with Pepcid and DVT prophylaxis with SCDs. Add Heparin Sq Level 3 Selina Acosta MD Feb 17, 2017 08:55
[2017-02-17] MEDS: CLOPIDOGREL 75 MG TAB PO SCH (09:00)
[2017-02-17] MEDS: amLODIPine BESYLATE 5 MG TAB PO SCH (09:00)
[2017-02-17] MEDS: SERTRALINE HCL 50 MG TAB PO SCH (09:00)
[2017-02-17] MEDS: guaiFENesin E.R. 600 MG TAB PO SCH ×2 (09:00→21:08)
[2017-02-17] MEDS: QUEtiapine FUMARATE 25 MG TAB PO SCH ×2 (09:00→15:35)
[2017-02-17] MEDS: ASPIRIN 81 MG CHEW TAB CHEW SCH (09:00)
[2017-02-17] MEDS: METOPROLOL TARTRATE 50 MG TAB PO SCH ×2 (09:00→21:08)
[2017-02-17] MEDS ORDERED: AZITHROMYCIN 250 MG TAB PO SCH (09:00)
[2017-02-17] MEDS: AZITHROMYCIN INJ 500 MG in SODIUM CHLOR 0.9% 250 ML INJ 250 ML IV SCH (09:00)
[2017-02-17] MEDS ORDERED: LEVOFLOXACIN 750 MG TAB PO SCH (09:00)
[2017-02-17] MEDS: LEVOFLOXACIN 750 MG PREMIX INJ 150 ML IV SCH (09:02)
--- NOTE | 2017-02-17 09:24 | PD.CONS ---
History of Present Illness Service Infectious disease Consult Requested By Dr Shin Reason for Consult Evaluate patient with right foot infection, assistance with care Primary Care Physician Unknown Diagnoses: History of Present Illness Patient seen and examined. Records reviewed. The patient is a 66-year-old female, who I saw in the psychiatric unit last February 15, for evaluation of her right foot infection. She was initially admitted in the psych unit for suicidal ideation. [facility] and she was on IV Vanco was started February 11, and the plan was for her to get a two-week course of IV antibiotic. Of note is that the patient was on antibiotic, getting IV Cubicin and Cipro in the penitentiary, which look like it was started around February 05, however she was admitted at [facility] for evaluation of shortness of breath and altered mental status. There were very limited records for review, but during that admission she was found to have an ulcer on the right foot which apparently has been chronic. I did not have any information as to what kind of workup was done at that time. She had a CT of the chest during her hospitalization there and it did not show any pulmonary embolism, but showed pulmonary infiltrates suggestive of congestive heart failure. She was [facility] 11 to the [facility] on IV Vanco, with plans to finish 2 week course. Patient however apparently had suicidal ideation in the penitentiary, so she was taken to [place] and was admitted in the psychiatric unit. Podiatry also saw her in the psych unit, and she was getting some workup for her right foot to determine the extent of her infection. Patient apparently had more shortness of breath, and decreased level of consciousness, so she was transferred to the main hospital, in the ICU for workup and closer monitoring. Patient currently complains of shortness of breath and complaints of chest pain. She states she is bringing up some phlegm and his color yellow. She is currently on BiPAP. Neurology also is evaluating the patient, and she just finished having her EEG done. Patient is afebrile. Her chest x-ray showing vascular engorgement, and bilateral interstitial prominence. She has had a CTA while at the psych unit, and it looks like it's the same finding as what she had at [facility]. Her WBC is normal. Patient is currently on IV Vanco, Levaquin, and Zithromax. Infectious disease consultation is requested to continue with management of her right foot infection Review of Systems Constitutional: DENIES: Fever, Chills Eyes: DENIES: Eye pain Ears, nose, mouth, throat: DENIES: Nasal discharge, Oral lesions, Throat pain, Running Nose, Sinus Pain Respiratory: COMPLAINS OF: Cough, Sputum production, Shortness of breath, DENIES: Hemoptysis Cardiovascular: COMPLAINS OF: Chest pain, Dyspnea on Exertion Gastrointestinal: DENIES: Abdominal pain, Diarrhea, Nausea, Vomiting, Difficulty Swallowing Genitourinary: DENIES: Urgency, Hematuria, Dysuria Musculoskeletal: COMPLAINS OF: Joint Swelling Integumentary: DENIES: Rash Hematologic/lymphatic: DENIES: Lymphadenopathy Neurologic: DENIES: Headache, Localized weakness Psychiatric: DENIES: Hallucinations Past Family Social History Allergies: Coded Allergies: No Known Allergies (Unverified , 02/12/17) Past Medical History Charcot joint right foot Chronic ulcer right foot CAD CHF Anemia Depression Diabetes mellitus Past Surgical History CABG Reported Medications I attest that I obtained, updated or reviewed the home and current medications. Reported Meds & Active Scripts Active Seroquel (Quetiapine Fumarate) 25 Mg Tab 12.5 Mg PO BID 30 Days Sertraline (Sertraline HCl) 50 Mg Tab 50 Mg PO DAILY Reported Metoprolol Tartrate 100 Mg Tab 100 Mg PO DAILY Duoneb (Ipratropium-Albuterol Neb) 0.5-2.5 Mg/3 Ml Neb 1 Nebule INH Q8HR NEB Levemir Inj (Insulin Detemir) 1,000 unit/ 10 ML Vial 12 Units SQ HS Do not mix with any other Insulin. Hydralazine (Hydralazine HCl) 100 Mg Tab 100 Mg PO TID Take with meals Humalog Inj (Insulin Human Lispro) 1,000 Unit/10 Ml Vial 1-9 Units SQ ACHS Max dose at bedtime:( )units; sugars< 70,(0)units; sugars 150-199,(1)unit; sugars 200-249,(3)units; sugars 250-299,(5)units; sugars 300-349,(7)units; sugars more than 349,(9)units. Gabapentin 600 Mg Tab 600 Mg PO TID Furosemide 20 Mg Tab 20 Mg PO DAILY Cubicin Inj (Daptomycin) 500 Mg Bag 500 Mg IV Q24H Must dilute in appropriate IV Fluid prior to administration Clopidogrel (Clopidogrel Bisulfate) 75 Mg Tab 75 Mg PO DAILY Ciprofloxacin (Ciprofloxacin HCl) 500 Mg Tab 500 Mg PO BID Cefepime Inj (Cefepime HCl) 2 Gm/100 Ml Bagp 2 Gm IV Q12H Atorvastatin (Atorvastatin Calcium) 40 Mg Tab 40 Mg PO HS Aspirin 81 Mg Chew 81 Mg CHEW DAILY Amlodipine (Amlodipine Besylate) 5 Mg Tab 5 Mg PO DAILY Mapap (Acetaminophen) 325 Mg Tab 650 Mg PO Q4-6H PRN Active Ordered Medications Current Medications Medications (Trade) Dose Ordered Sig/Fátima Route Start Time Stop Time Status Last Admin (Norvasc) 5 mg DAILY PO 02/17/17 09:00 (Aspirin Chew) 81 mg DAILY CHEW 02/17/17 09:00 (Plavix) 75 mg DAILY PO 02/17/17 09:00 (Lopressor) 50 mg Q12HR PO 02/16/17 21:00 (Apresoline) 100 mg Q8HR PO 02/16/17 22:00 Pharmacy Profile Note 0 ml @ 0 mls/hr UNSCH OTHER 02/16/17 17:15 Vancomycin HCl 1400 mg/Sodium Chloride 514 ml @ 250 mls/hr Q24H IV 02/17/17 18:00 (SoluMEDROL INJ) 40 mg Q6H IV PUSH 02/16/17 20:00 02/17/17 09:01 (Mucinex Er) 600 mg BID PO 02/16/17 21:00 (Duoneb Neb) 1 ampule Q4HR NEB PRN NEB 02/16/17 17:45 (Zoloft) 25 mg DAILY PO 02/17/17 09:00 (SEROquel) 12.5 mg BID@09,12 PO 02/17/17 09:00 (Lipitor) 40 mg HS PO 02/16/17 21:00 (Neurontin) 600 mg TID PO 02/16/17 18:00 (Zithromax) 500 mg DAILY PO 02/17/17 09:00 Future Hold (NovoLOG SUPPLEMENTAL SCALE) 1 ACHS SLIDING SCALE SQ 02/16/17 21:00 Miscellaneous Information 1 Q361D XX 02/16/17 17:45 (Chlorhexidine 2% Cloth) 3 pack Taper DAILY@04 TOP 02/17/17 04:00 02/13/18 03:59 02/17/17 04:00 (Chlorhexidine 2% Cloth) 3 pack UNSCH PRN TOP 02/16/17 17:45 (D50w (Vial) Inj) 50 ml UNSCH PRN IV PUSH 02/16/17 17:45 (Glucagon Inj) 1 mg UNSCH PRN OTHER 02/16/17 17:45 (Pill Splitter) 1 ea UNSCH PRN OTHER 02/16/17 19:30 (Apresoline Inj) 10 mg Q6H PRN IV PUSH 02/16/17 20:15 Levofloxacin/ Dextrose 150 ml @ 100 mls/hr Q48H IV 02/17/17 09:00 02/17/17 09:02 Azithromycin 500 mg/Sodium Chloride 250 ml @ 250 mls/hr Q24H IV 02/17/17 09:00 02/17/17 09:00 Family History Not known Social History No smoking No alcohol abuse No illicit drugs [facility] Physical Exam Vital Signs Vital Signs Date Time Temp Pulse Resp B/P (MAP) Pulse Ox O2 Delivery O2 Flow Rate FiO2 02/17/17 08:00 97.9 85 14 147/66 (93) 94 02/17/17 08:00 85 02/17/17 07:00 97 Bi-Pap 40 02/17/17 06:00 78 02/17/17 04:00 96.9 83 14 168/74 (105) 94 02/17/17 04:00 83 02/17/17 03:58 96 40 02/17/17 02:57 95 Bi-Pap 12.00 40 02/17/17 02:00 81 02/17/17 00:00 75 02/17/17 00:00 97.5 75 17 159/77 (104) 93 02/16/17 23:26 96 BiPAP 50 02/16/17 23:26 96 50 02/16/17 22:00 69 02/16/17 20:56 95 Venturi Mask 50 02/16/17 20:30 97 Partial Rebreather 13.00 02/16/17 20:00 97.0 74 15 157/76 (103) 96 02/16/17 20:00 74 02/16/17 19:45 97 Non-Rebreather 13.00 02/16/17 18:00 67 02/16/17 16:00 67 02/16/17 16:00 97.9 74 18 143/75 (97) 97 Physical Exam GENERAL: Patient is a well-nourished, well-developed female, awake and alert , looks dyspneic at rest, on BIPAP mask SKIN: Cool And dry. No generalized rash, no ecchymoses and no evidence of embolic lesions. HEAD: Atraumatic. Normocephalic. No temporal wasting, or tenderness. EYES: [place] conjunctiva. No petechia or hemorrhage. Pupils equal, round and reactive to light. Extraocular movements full and intact. No scleral icterus. No injection or drainage. EARS, NOSE AND THROAT: Nose without bleeding or purulent nasal discharge. No sinus tenderness. Mucous membranes pink and moist.On BIPAP mask NECK: Trachea midline. Supple and not tender, no meningeal signs CARDIOVASCULAR: Regular rate and rhythm. No murmurs, rubs or gallops heard. Sternotomy scar compatible with her surgical history. RESPIRATORY: Decreased breath sounds at bases. Breath sounds equal bilaterally. Rales at the bases. ABDOMEN: Soft, non-tender, nondistended. Bowel sounds present and normoactive. No guarding. No rebound. No organomegaly. EXTREMITIES: No clubbing, cyanosis. Has mild bilateral pedal edema. R foot , there is an ulcer on plantar aspect mid foot, it measures about 1.5 inch diameter, sclerotic border, dry, no purulence, no odor, no surrounding redness. Seem to have possibly beginning Charcot deformity of R foot. L foot - there is a round area plantar aspect midfoot, but not open wound, no erythema and also has similar possibly beginning Charcot deformity. No joint effusion, has good ROM. No calf tenderness. Well perfused and warm. NEUROLOGICAL: Awake and alert. Cranial nerves grossly intact. Motor grossly within normal limits. PSYCHIATRIC: Normal affect, calm and cooperative. LINE: PICC RUE with no evidence of infection Laboratory Laboratory Tests Test 02/16/17 16:00 02/16/17 17:20 02/16/17 20:16 02/17/17 01:14 Nasal Screen MRSA (PCR) MRSA NOT DETECTED Ammonia 35 B-Type Natriuretic Peptide 213 Vitamin B12 Level 590 Blood Gas Puncture Site RT RADIAL RT BRACHIAL Blood Gas Patient Temperature 98.6 98.6 Blood Gas HCO3 35 33 Blood Gas Base Excess 8.5 7.6 Blood Gas Oxygen Saturation 97 96 Arterial Blood pH 7.32 7.36 Arterial Blood Partial Pressure CO2 69 60 Arterial Blood Partial Pressure O2 166 117 Arterial Blood Oxygen Content 11.8 12.6 Arterial Blood Carboxyhemoglobin 1.3 1.4 Arterial Blood Methemoglobin 1.3 1.2 Blood Gas Hemoglobin 8.4 9.2 Oxygen Delivery Device PRB BIPAP Blood Gas Liter Flow 13 Blood Gas Ventilator Setting 01/07 BUR 8 40% Blood Gas Inspired Oxygen 40 Test 02/17/17 05:10 White Blood Count 5.5 Red Blood Count 3.42 Hemoglobin 9.2 Hematocrit 29.4 Mean Corpuscular Volume 85.9 Mean Corpuscular Hemoglobin 26.8 Mean Corpuscular Hemoglobin Concent 31.2 Red Cell Distribution Width 18.4 Platelet Count 174 Mean Platelet Volume 8.1 Neutrophils (%) (Auto) 90.1 Lymphocytes (%) (Auto) 7.5 Monocytes (%) (Auto) 1.7 Eosinophils (%) (Auto) 0.2 Basophils (%) (Auto) 0.5 Neutrophils # (Auto) 5.0 Lymphocytes # (Auto) 0.4 Monocytes # (Auto) 0.1 Eosinophils # (Auto) 0.0 Basophils # (Auto) 0.0 CBC Comment DIFF FINAL Differential Comment Blood Urea Nitrogen 48 Creatinine 1.28 Random Glucose 140 Total Protein 8.0 Albumin 2.5 Calcium Level 8.7 Phosphorus Level 5.5 Magnesium Level 2.5 Alkaline Phosphatase 113 Aspartate Amino Transf (AST/SGOT) 18 Alanine Aminotransferase (ALT/SGPT) 24 Total Bilirubin 0.6 Sodium Level 137 Potassium Level 5.0 Chloride Level 98 Carbon Dioxide Level 31.0 Anion Gap 8 Estimat Glomerular Filtration Rate 42 Free Thyroxine 2.10 Thyroid Stimulating Hormone 3rd Gen 3.350 Result Diagram: 02/17/17 0510 02/17/17 0510 Assessment and Plan Assessment and Plan IMPRESSION SOB, bilateral infiltrates, possibly CHF - was treated for PNA previously - Her CT lookas similar findings as the one done at [facility] R foot plantar ulcer, currently does not look infected, no cellulitis - ?result of work-up in [facility] per SNF records she was supposed to get IV vanco x 14 days - possibly beginning Charcot foot durga Suicidal ideation RECOMMENDATION Patient is On IV vanco Will get records from [facility] - I had requested for it when I saw her in the psych unit, but I could not find them at this time She is also on Levaquin Stop Zithromax Podiatry has been consulted Pulmonary also evaluating her Monitor progress Follow cultures Wound care to the right foot per podiatry I will follow along with you Thank you for this consultation Discussed Condition With Discussed with Yuli Richard MD Feb 17, 2017 09:24
--- NOTE | 2017-02-17 09:26 | HHI.PR ---
Review/Management Diagnosis/Plan: (1) Encephalopathy, metabolic ICD Codes: G93.41 - Metabolic encephalopathy Status: Acute Plan: likely related to hypoxia/hypercapnia ?chf exacerbation hx of underlying dementia? recs mental status stable. ox 2, follows d/w rn f/u eeg/mri with hx of confusion/dementia and recent worsening when medically stable (2) CHF (congestive heart failure) ICD Codes: I50.9 - Heart failure, unspecified Status: Acute (3) Respiratory distress ICD Codes: R06.03 - Acute respiratory distress Status: Acute (4) DEMENTIA IN OTH DISEASES CLASSD ELSWHR W/O BEHAVRL DISTURB ICD Codes: F02.80 - DEMENTIA IN OTH DISEASES CLASSD ELSWHR W/O BEHAVRL DISTURB Status: Chronic Subjective Subjective Comments No acute events reported No headache No chest pain No dyspnea Active Medications Current Medications Medications (Trade) Dose Ordered Sig/Fátima Route Start Time Stop Time Status Last Admin (Norvasc) 5 mg DAILY PO 02/17/17 09:00 (Aspirin Chew) 81 mg DAILY CHEW 02/17/17 09:00 (Plavix) 75 mg DAILY PO 02/17/17 09:00 (Lopressor) 50 mg Q12HR PO 02/16/17 21:00 (Apresoline) 100 mg Q8HR PO 02/16/17 22:00 Pharmacy Profile Note 0 ml @ 0 mls/hr UNSCH OTHER 02/16/17 17:15 Vancomycin HCl 1400 mg/Sodium Chloride 514 ml @ 250 mls/hr Q24H IV 02/17/17 18:00 (SoluMEDROL INJ) 40 mg Q6H IV PUSH 02/16/17 20:00 02/17/17 09:01 (Mucinex Er) 600 mg BID PO 02/16/17 21:00 (Duoneb Neb) 1 ampule Q4HR NEB PRN NEB 02/16/17 17:45 (Zoloft) 25 mg DAILY PO 02/17/17 09:00 (SEROquel) 12.5 mg BID@09,12 PO 02/17/17 09:00 (Lipitor) 40 mg HS PO 02/16/17 21:00 (Neurontin) 600 mg TID PO 02/16/17 18:00 (Zithromax) 500 mg DAILY PO 02/17/17 09:00 Future Hold (NovoLOG SUPPLEMENTAL SCALE) 1 ACHS SLIDING SCALE SQ 02/16/17 21:00 Miscellaneous Information 1 Q361D XX 02/16/17 17:45 (Chlorhexidine 2% Cloth) 3 pack Taper DAILY@04 TOP 02/17/17 04:00 02/13/18 03:59 02/17/17 04:00 (Chlorhexidine 2% Cloth) 3 pack UNSCH PRN TOP 02/16/17 17:45 (D50w (Vial) Inj) 50 ml UNSCH PRN IV PUSH 02/16/17 17:45 (Glucagon Inj) 1 mg UNSCH PRN OTHER 02/16/17 17:45 (Pill Splitter) 1 ea UNSCH PRN OTHER 02/16/17 19:30 (Apresoline Inj) 10 mg Q6H PRN IV PUSH 02/16/17 20:15 Levofloxacin/ Dextrose 150 ml @ 100 mls/hr Q48H IV 02/17/17 09:00 02/17/17 09:02 Azithromycin 500 mg/Sodium Chloride 250 ml @ 250 mls/hr Q24H IV 02/17/17 09:00 02/17/17 09:00 (Heparin Inj) 5,000 units Q12HR SQ 02/17/17 21:00 UNV Allergies Allergies Coded Allergies No Known Allergies (Uackygyenc46/10/17) Review of Systems All other ROS: ROS reviewed as documented in chart Exam I&O / VS Vital Signs Date Time Temp Pulse Resp B/P (MAP) Pulse Ox O2 Delivery O2 Flow Rate FiO2 02/17/17 08:00 97.9 85 14 147/66 (93) 94 02/17/17 08:00 85 02/17/17 07:00 97 Bi-Pap 40 02/17/17 06:00 78 02/17/17 04:00 96.9 83 14 168/74 (105) 94 02/17/17 04:00 83 02/17/17 03:58 96 40 02/17/17 02:57 95 Bi-Pap 12.00 40 02/17/17 02:00 81 02/17/17 00:00 75 02/17/17 00:00 97.5 75 17 159/77 (104) 93 02/16/17 23:26 96 BiPAP 50 02/16/17 23:26 96 50 02/16/17 22:00 69 02/16/17 20:56 95 Venturi Mask 50 02/16/17 20:30 97 Partial Rebreather 13.00 02/16/17 20:00 97.0 74 15 157/76 (103) 96 02/16/17 20:00 74 02/16/17 19:45 97 Non-Rebreather 13.00 02/16/17 18:00 67 02/16/17 16:00 67 02/16/17 16:00 97.9 74 18 143/75 (97) 97 General: Mild distress Neurologic: Alert Psychiatric: Cooperative Exam Comments alert, looks more comfortable, non-rebreather on, ox 2, converses in israeli, eomi, follows, ou 3-2mm, burks to gravity, le with dystrophic changes, planterflexor, no clonus Objective Micro and Labs Laboratory Tests Test 02/16/17 16:00 02/16/17 17:20 02/16/17 20:16 02/17/17 01:14 Nasal Screen MRSA (PCR) MRSA NOT DETECTED Ammonia 35 B-Type Natriuretic Peptide 213 Vitamin B12 Level 590 Blood Gas Puncture Site RT RADIAL RT BRACHIAL Blood Gas Patient Temperature 98.6 98.6 Blood Gas HCO3 35 33 Blood Gas Base Excess 8.5 7.6 Blood Gas Oxygen Saturation 97 96 Arterial Blood pH 7.32 7.36 Arterial Blood Partial Pressure CO2 69 60 Arterial Blood Partial Pressure O2 166 117 Arterial Blood Oxygen Content 11.8 12.6 Arterial Blood Carboxyhemoglobin 1.3 1.4 Arterial Blood Methemoglobin 1.3 1.2 Blood Gas Hemoglobin 8.4 9.2 Oxygen Delivery Device PRB BIPAP Blood Gas Liter Flow 13 Blood Gas Ventilator Setting 10/5 BUR 8 40% Blood Gas Inspired Oxygen 40 Test 02/17/17 05:10 White Blood Count 5.5 Red Blood Count 3.42 Hemoglobin 9.2 Hematocrit 29.4 Mean Corpuscular Volume 85.9 Mean Corpuscular Hemoglobin 26.8 Mean Corpuscular Hemoglobin Concent 31.2 Red Cell Distribution Width 18.4 Platelet Count 174 Mean Platelet Volume 8.1 Neutrophils (%) (Auto) 90.1 Lymphocytes (%) (Auto) 7.5 Monocytes (%) (Auto) 1.7 Eosinophils (%) (Auto) 0.2 Basophils (%) (Auto) 0.5 Neutrophils # (Auto) 5.0 Lymphocytes # (Auto) 0.4 Monocytes # (Auto) 0.1 Eosinophils # (Auto) 0.0 Basophils # (Auto) 0.0 CBC Comment DIFF FINAL Differential Comment Blood Urea Nitrogen 48 Creatinine 1.28 Random Glucose 140 Total Protein 8.0 Albumin 2.5 Calcium Level 8.7 Phosphorus Level 5.5 Magnesium Level 2.5 Alkaline Phosphatase 113 Aspartate Amino Transf (AST/SGOT) 18 Alanine Aminotransferase (ALT/SGPT) 24 Total Bilirubin 0.6 Sodium Level 137 Potassium Level 5.0 Chloride Level 98 Carbon Dioxide Level 31.0 Anion Gap 8 Estimat Glomerular Filtration Rate 42 Free Thyroxine 2.10 Thyroid Stimulating Hormone 3rd Gen 3.350 Problem Qualifiers (1) CHF (congestive heart failure): Darien Rice MD Feb 17, 2017 09:26
--- NOTE | 2017-02-17 10:13 | HHI.PYPN ---
Subjective Remarks Patient was seen today for psychiatric reevaluation in the ICU, patient is very drowsy and sleepy, with BiPAP. Chart was reviewed, case discussed with primary medical team. Patient reports feeling very tired and sad. Difficult to cooperate with this evaluation due t drowsiness and respiratory difficulties. She does denies suicidal ideation, homicidal ideation, visual and auditory hallucinations. Review of Systems Respiratory: COMPLAINS OF: Shortness of breath Psychiatric: COMPLAINS OF: Depression Mental Status Examination Appearance: Appropriate Consciousness: Alert Orientation: x4 Motor Activity: Normal gait Speech: Unremarkable Language: Adequate Fund of Knowledge: Adequate Attention and Concentration: Adequate Memory: Unremarkable Mood: Appropriate Affect: Appropriate Thought Process & Associations: Intact Thought Content: Appropriate Hallucination Type: None Delusion Type: None Suicidal Ideation: No Suicidal Plan: No Suicidal Intention: No Homicidal Ideation: No Homicidal Plan: No Homicidal Intention: No Insight: Adequate Judgment: Adequate Results Labs Test 02/16/17 16:00 02/16/17 17:20 02/16/17 20:16 02/17/17 01:14 Nasal Screen MRSA (PCR) MRSA NOT DETECTED Ammonia 35 MCMOL/L B-Type Natriuretic Peptide 213 PG/ML Vitamin B12 Level 590 PG/ML Blood Gas Puncture Site RT RADIAL RT BRACHIAL Blood Gas Patient Temperature 98.6 98.6 Blood Gas HCO3 35 mmol/L 33 mmol/L Blood Gas Base Excess 8.5 mmol/L 7.6 mmol/L Blood Gas Oxygen Saturation 97 % 96 % Arterial Blood pH 7.32 7.36 Arterial Blood Partial Pressure CO2 69 mmHg 60 mmHg Arterial Blood Partial Pressure O2 166 mmHg 117 mmHg Arterial Blood Oxygen Content 11.8 Vol % 12.6 Vol % Arterial Blood Carboxyhemoglobin 1.3 % 1.4 % Arterial Blood Methemoglobin 1.3 % 1.2 % Blood Gas Hemoglobin 8.4 G/DL 9.2 G/DL Oxygen Delivery Device PRB BIPAP Blood Gas Liter Flow 13 L/M Blood Gas Ventilator Setting 10/5 BUR 8 40% Blood Gas Inspired Oxygen 40 % Test 02/17/17 05:10 White Blood Count 5.5 TH/MM3 Red Blood Count 3.42 MIL/MM3 Hemoglobin 9.2 GM/DL Hematocrit 29.4 % Mean Corpuscular Volume 85.9 FL Mean Corpuscular Hemoglobin 26.8 PG Mean Corpuscular Hemoglobin Concent 31.2 % Red Cell Distribution Width 18.4 % Platelet Count 174 TH/MM3 Mean Platelet Volume 8.1 FL Neutrophils (%) (Auto) 90.1 % Lymphocytes (%) (Auto) 7.5 % Monocytes (%) (Auto) 1.7 % Eosinophils (%) (Auto) 0.2 % Basophils (%) (Auto) 0.5 % Neutrophils # (Auto) 5.0 TH/MM3 Lymphocytes # (Auto) 0.4 TH/MM3 Monocytes # (Auto) 0.1 TH/MM3 Eosinophils # (Auto) 0.0 TH/MM3 Basophils # (Auto) 0.0 TH/MM3 CBC Comment DIFF FINAL Differential Comment Blood Urea Nitrogen 48 MG/DL Creatinine 1.28 MG/DL Random Glucose 140 MG/DL Total Protein 8.0 GM/DL Albumin 2.5 GM/DL Calcium Level 8.7 MG/DL Phosphorus Level 5.5 MG/DL Magnesium Level 2.5 MG/DL Alkaline Phosphatase 113 U/L Aspartate Amino Transf (AST/SGOT) 18 U/L Alanine Aminotransferase (ALT/SGPT) 24 U/L Total Bilirubin 0.6 MG/DL Sodium Level 137 MEQ/L Potassium Level 5.0 MEQ/L Chloride Level 98 MEQ/L Carbon Dioxide Level 31.0 MEQ/L Anion Gap 8 MEQ/L Estimat Glomerular Filtration Rate 42 ML/MIN Free Thyroxine 2.10 NG/DL Thyroid Stimulating Hormone 3rd Gen 3.350 uIU/ML Vitals/IOs Vital Signs Date Time Temp Pulse Resp B/P (MAP) Pulse Ox O2 Delivery O2 Flow Rate FiO2 02/17/17 09:28 95 Nasal Cannula 4.00 02/17/17 08:00 97.9 85 14 147/66 (93) 02/17/17 07:00 40 Intake and Output 02/17/17 02/17/17 02/18/17 08:00 16:00 00:00 Output Total 0 ml Balance 0 ml Assessment & Plan Problem List: (1) Unspecified psychosis ICD Codes: F29 - Unspecified psychosis not due to a substance or known physiological condition Assessment & Plan: Continue current psychotropic regimen. Continue medical treatment as needed, we'll follow-up. Assessment & Plan Estimated LOS: days Justification for Cont. Inpt. The plan will be to take the patient back to psychiatry once medically stable. Cornelio Nelson MD Feb 17, 2017 10:13
--- NOTE | 2017-02-17 11:31 | HHI.PR ---
Subjective Remarks 66-year-old female brought in from SN[facility] for evaluation of suicidal ideation. was admitted to MEDICAL PSYCHIATRY and now TRANSFERRED to ICU for RESPIRATORY DISTRESS AND COPD AND CHF after [facility] was called. PATIENT WAS noted to be hypoxic and hypercapnic. limited hx from pt. medical chart reviewed. 02-17 WAS ON BIPAP LAST NIGHT PASSED SWALLOW WITH SPEECH- MECHANICAL SOFT DIET DM FOR MRI OF HEAD AND FOOT TODAY HAD EEG- TODAY DW RN AND PT AND SPEECH AND CCM Objective Vitals Vital Signs Date Time Temp Pulse Resp B/P (MAP) Pulse Ox O2 Delivery O2 Flow Rate FiO2 02/17/17 10:00 85 02/17/17 09:28 95 Nasal Cannula 4.00 02/17/17 08:00 97.9 85 14 147/66 (93) 94 02/17/17 08:00 85 02/17/17 07:00 97 Bi-Pap 40 02/17/17 06:00 78 02/17/17 04:00 96.9 83 14 168/74 (105) 94 02/17/17 04:00 83 02/17/17 03:58 96 40 02/17/17 02:57 95 Bi-Pap 12.00 40 02/17/17 02:00 81 02/17/17 00:00 75 02/17/17 00:00 97.5 75 17 159/77 (104) 93 02/16/17 23:26 96 BiPAP 50 02/16/17 23:26 96 50 02/16/17 22:00 69 02/16/17 20:56 95 Venturi Mask 50 02/16/17 20:30 97 Partial Rebreather 13.00 02/16/17 20:00 97.0 74 15 157/76 (103) 96 02/16/17 20:00 74 02/16/17 19:45 97 Non-Rebreather 13.00 02/16/17 18:00 67 02/16/17 16:00 67 02/16/17 16:00 97.9 74 18 143/75 (97) 97 I/O 02/16/17 02/16/17 02/16/17 02/17/17 02/17/17 02/17/17 07:00 15:00 23:00 07:00 15:00 23:00 Intake Total 517.5 ml Output Total 0 ml Balance 517.5 ml 0 ml Intake IV Total 517.5 ml Output Stool Total 0 ml # Voids 1 2 Result Diagram: 02/17/17 0510 02/17/17 0510 Other Results Laboratory Tests Test 02/16/17 16:00 02/16/17 17:20 02/16/17 20:16 02/17/17 01:14 Nasal Screen MRSA (PCR) MRSA NOT DETECTED Ammonia 35 MCMOL/L B-Type Natriuretic Peptide 213 PG/ML Vitamin B12 Level 590 PG/ML Blood Gas Puncture Site RT RADIAL RT BRACHIAL Blood Gas Patient Temperature 98.6 98.6 Blood Gas HCO3 35 mmol/L 33 mmol/L Blood Gas Base Excess 8.5 mmol/L 7.6 mmol/L Blood Gas Oxygen Saturation 97 % 96 % Arterial Blood pH 7.32 7.36 Arterial Blood Partial Pressure CO2 69 mmHg 60 mmHg Arterial Blood Partial Pressure O2 166 mmHg 117 mmHg Arterial Blood Oxygen Content 11.8 Vol % 12.6 Vol % Arterial Blood Carboxyhemoglobin 1.3 % 1.4 % Arterial Blood Methemoglobin 1.3 % 1.2 % Blood Gas Hemoglobin 8.4 G/DL 9.2 G/DL Oxygen Delivery Device PRB BIPAP Blood Gas Liter Flow 13 L/M Blood Gas Ventilator Setting 10/ BUR 8 40% Blood Gas Inspired Oxygen 40 % Test 02/17/17 05:10 White Blood Count 5.5 TH/MM3 Red Blood Count 3.42 MIL/MM3 Hemoglobin 9.2 GM/DL Hematocrit 29.4 % Mean Corpuscular Volume 85.9 FL Mean Corpuscular Hemoglobin 26.8 PG Mean Corpuscular Hemoglobin Concent 31.2 % Red Cell Distribution Width 18.4 % Platelet Count 174 TH/MM3 Mean Platelet Volume 8.1 FL Neutrophils (%) (Auto) 90.1 % Lymphocytes (%) (Auto) 7.5 % Monocytes (%) (Auto) 1.7 % Eosinophils (%) (Auto) 0.2 % Basophils (%) (Auto) 0.5 % Neutrophils # (Auto) 5.0 TH/MM3 Lymphocytes # (Auto) 0.4 TH/MM3 Monocytes # (Auto) 0.1 TH/MM3 Eosinophils # (Auto) 0.0 TH/MM3 Basophils # (Auto) 0.0 TH/MM3 CBC Comment DIFF FINAL Differential Comment Blood Urea Nitrogen 48 MG/DL Creatinine 1.28 MG/DL Random Glucose 140 MG/DL Total Protein 8.0 GM/DL Albumin 2.5 GM/DL Calcium Level 8.7 MG/DL Phosphorus Level 5.5 MG/DL Magnesium Level 2.5 MG/DL Alkaline Phosphatase 113 U/L Aspartate Amino Transf (AST/SGOT) 18 U/L Alanine Aminotransferase (ALT/SGPT) 24 U/L Total Bilirubin 0.6 MG/DL Sodium Level 137 MEQ/L Potassium Level 5.0 MEQ/L Chloride Level 98 MEQ/L Carbon Dioxide Level 31.0 MEQ/L Anion Gap 8 MEQ/L Estimat Glomerular Filtration Rate 42 ML/MIN Free Thyroxine 2.10 NG/DL Thyroid Stimulating Hormone 3rd Gen 3.350 uIU/ML Objective Remarks GENERAL: More awake and alert and oriented today more talkative and cooperative not lethargic SKIN: Warm and dry. Bilateral feet dressed HEAD: Atraumatic. Normocephalic. EYES: Pupils equal and round. No scleral icterus. No injection or drainage. Extraocular muscles intact ENT: No nasal bleeding or discharge. Mucous membranes pink and moist. Tongue is Midline NECK: Trachea midline. No JVD. Neck is supple CARDIOVASCULAR: Regular rate and rhythm. S1-S2 no S3-S4 no heave or thrill or rub or gallop RESPIRATORY: No accessory muscle use. Clear to auscultation. Breath sounds equal bilaterally. GASTROINTESTINAL: Abdomen soft, non-tender, nondistended. Hepatic and splenic margins not palpable. MUSCULOSKELETAL: Extremities without clubbing, cyanosis, or edema. No obvious deformities. NEUROLOGICAL: Awake and alert. No obvious cranial nerve deficits. Motor grossly within normal limits. 4 out of 5 muscle strength in the arms and legs. Normal speech. PSYCHIATRIC: INAppropriate mood and affect; insight and judgment ABnormal. Medications and IVs Current Medications Amlodipine Besylate (Norvasc) 5 mg DAILY PO ; Start 02/17/17 at 09:00 Aspirin (Aspirin Chew) 81 mg DAILY CHEW ; Start 02/17/17 at 09:00 Clopidogrel Bisulfate (Plavix) 75 mg DAILY PO ; Start 02/17/17 at 09:00 Dextrose (D50w (Vial) Inj) 50 ml UNSCH PRN IV PUSH HYPOGLYCEMIA-SEE COMMENTS; Start 02/16/17 at 17:15; Stop 02/16/17 at 19:19; Status DC Glucagon (Glucagon Inj) 1 mg UNSCH PRN OTHER HYPOGLYCEMIA-SEE COMMENTS; Start 02/16/17 at 17:15; Stop 02/16/17 at 19:21; Status DC Insulin Human Regular (NovoLIN R SUPPLEMENTAL SCALE) 1 Q4H SQ ; Start 02/16/17 at 18:00; Stop 02/16/17 at 19:23; Status DC Metoprolol Tartrate (Lopressor) 50 mg Q12HR PO ; Start 02/16/17 at 21:00 Hydralazine HCl (Apresoline) 100 mg Q8HR PO ; Start 02/16/17 at 22:00 Pharmacy Profile Note 0 ml @ 0 mls/hr UNSCH OTHER ; Start 02/16/17 at 17:15 Vancomycin HCl 1750 mg/Sodium Chloride 517.5 ml @ 250 mls/hr NOW ONCE IV Last administered on 02/16/17t 18:10; Start 02/16/17 at 17:45; Stop 02/16/17 at 19:49; Status DC Vancomycin HCl 1400 mg/Sodium Chloride 514 ml @ 250 mls/hr Q24H IV ; Start at 18:00 Methylprednisolone Sodium Succinate (SoluMEDROL INJ) 40 mg Q6H IV PUSH Last administered on 02/17/17 09:01; Start 02/16/17 at 20:00 Guaifenesin (Mucinex Er) 600 mg BID PO ; Start 02/16/17 at 21:00 Albuterol/ Ipratropium (Duoneb Neb) 1 ampule Q4HR NEB PRN NEB SHORTNESS OF BREATH; Start 02/16/17 at 17:45 Sertraline HCl (Zoloft) 25 mg DAILY PO ; Start 02/17/17 at 09:00 Quetiapine Fumarate (SEROquel) 12.5 mg BID@09,12 PO ; Start 02/17/17 at 09:00 Atorvastatin Calcium (Lipitor) 40 mg HS PO ; Start 02/16/17 at 21:00 Gabapentin (Neurontin) 600 mg TID PO ; Start 02/16/17 at 18:00 Levofloxacin (Levaquin) 750 mg Q48H PO ; Start 02/17/17 at 09:00; Stop at 09:00; Status DC Azithromycin (Zithromax) 500 mg DAILY PO ; Start 02/17/17 at 09:00; Status Future Hold Insulin Aspart (NovoLOG SUPPLEMENTAL SCALE) 1 ACHS SLIDING SCALE SQ ; Start at 21:00 Miscellaneous Information 1 Q361D XX ; Start 02/16/17 at 17:45 Chlorhexidine Gluconate (Chlorhexidine 2% Cloth) 3 pack Taper DAILY@04 TOP Last administered on 02/17/17 04:00; Start 02/17/17 at 04:00; Stop 02/13/18 at 03:59 Chlorhexidine Gluconate (Chlorhexidine 2% Cloth) 3 pack UNSCH PRN TOP HYGIENIC CARE; Start 02/16/17 at 17:45 Dextrose (D50w (Vial) Inj) 50 ml UNSCH PRN IV PUSH HYPOGLYCEMIA-SEE COMMENTS; Start 02/16/17 at 17:45 Glucagon (Glucagon Inj) 1 mg UNSCH PRN OTHER HYPOGLYCEMIA-SEE COMMENTS; Start 02/16/17 at 17:45 Miscellaneous (Pill Splitter) 1 ea UNSCH PRN OTHER SEE LABEL COMMENTS; Start 02/16/17 at 19:30 Hydralazine HCl (Apresoline Inj) 10 mg Q6H PRN IV PUSH SEE LABEL COMMENTS; Start 02/16/17 at 20:15 Levofloxacin/ Dextrose 150 ml @ 100 mls/hr Q48H IV Last administered on 09:02; Start 02/17/17 at 09:00 Azithromycin 500 mg/Sodium Chloride 250 ml @ 250 mls/hr Q24H IV Last administered on 02/17/17 09:00; Start 02/17/17 at 09:00 Heparin Sodium (Porcine) (Heparin Inj) 5,000 units Q12HR SQ ; Start 02/17/17 at 21:00 A/P Problem List: (1) Unspecified psychosis ICD Code: F29 - Unspecified psychosis not due to a substance or known physiological condition (2) DEMENTIA IN OTH DISEASES CLASSD ELSWHR W/O BEHAVRL DISTURB ICD Code: F02.80 - DEMENTIA IN OTH DISEASES CLASSD ELSWHR W/O BEHAVRL DISTURB Status: Chronic (3) Encephalopathy, metabolic ICD Code: G93.41 - Metabolic encephalopathy Status: Acute (4) CHF (congestive heart failure) ICD Code: I50.9 - Heart failure, unspecified Status: Acute (5) Respiratory distress ICD Code: R06.03 - Acute respiratory distress Status: Acute (6) Hypoxia ICD Code: R09.02 - Hypoxemia Assessment and Plan TRANSFERRED TO ICU AT REQUEST OF PSYCHIATRY 02-16 STARTING THIS MORNING PATIENT STARTED TO DECOMPENSATE 02-16 //Atypical pneumonia. //Hypoxic respiratory failure. Pulse oximetry 82 on room air on admission. On 4 L now //Possible CHF exacerbation WILL INCREASE LASIX TO 40MG IV DAILY -With productive cough -CT pulmonary angiogram with mediastinal adenopathy, bilateral pulmonary infiltrates. Duo Nebs, Azithromycin.LEVAQUIN. VANCO Continue diet with 1800 mL fluid restriction. WILL GET AM LABS HYPOXIA- MAY NEED STEROIDS AND NEB TREATMENT --Slow improvement Less hypoxic only on 4 L now //Hypertension. //CAD status post CABG 3 //history of CHF. Blood pressure acceptable. Continue home medications. Continue aspirin and Plavix. Continue to monitor. = BNP 284 on admission. Echocardiogram pending. Continue fluid restrictions. DIURESE //Diabetes mellitus type 2. -Blood sugars elevated. Insulin sliding scale added. Continue diabetic diet. continue Levemir.. Past swallow eval will continue on diabetic mechanical soft diet //Diabetic neuropathy. Due to renal sufficiency, will decrease gabapentin dose. Continue to monitor. //Hyperlipidemia. Continue home medications. //Bilateral feet with diabetic ulcers. Right worse than left. Patient is to be continued on Cipro and daptomycin until 02/19. Requesting outside records, still pending. -ESR 76. =Infectious disease consult at. Continue on vancomycin as per infectious disease. Appreciate assistance = Podiatry consulted follow-up recommendations. //Anemia. Hemoglobin 8.9. Uncertain chronicity. No signs of bleeding. Reorder labs. //Renal insufficiency. Creatinine 1.18. On admission. GFR 49 on admission. Uncertain baseline. = Creatinine 0.97. Outside records still pending. CONTINUE VANCO, ZITHRO, LEVAQUIN INCREASE LASIX TO 40MG IV DAILY AM LAB CONSULT PT AND OT FOR LEFT UE WEAKNESS INCENTIVE SPIROMETRY For MRI of her foot and her head Discharge Planning Pending psychiatric clearance and infectious disease clearance and pulmonary clearance Problem Qualifiers (1) CHF (congestive heart failure): gA Shin DO Feb 17, 2017 11:31
--- NOTE | 2017-02-17 12:33 | RADRPT ---
EXAM DATE/TIME: 02/17/2017 11:48 [facility] COMPARISON: No previous studies available for comparison. INDICATIONS : CVA. MEDICAL HISTORY : Diabetes mellitus type 2. Hypertension. Congestive heart failure. SURGICAL HISTORY : CABG ENCOUNTER: Initial ACUITY: 1 week PAIN SCORE: 0/10 LOCATION: head TECHNIQUE: Multiplanar, multisequence MRI of the brain was performed without contrast. FINDINGS: CEREBRUM: The ventricles are normal for age. No evidence of midline shift, mass lesion, hemorrhage or acute in farction. No extraaxial fluid collections are seen. The pituitary gland and suprasellar cistern are normal in configuration. WHITE MATTER: There is some scattered areas of increased T2 signal in the white matter most consistent with mild mi crovascular ischemic demyelinative change. POSTERIOR FOSSA: The cerebellum and brainstem are intact. The 4th ventricle is midline. The cerebellopontine angle is unremarkable. The cerebellar tonsils are normal in position. DIFFUSION IMAGING: No focal areas of restricted diffusion are seen. No evidence of acute infarction. EXTRACRANIAL: The visualized portions of the orbits and paranasal sinuses are unremarkable. There is fluid filling the mastoid air cells. CONCLUSION: 1. No findings to indicate acute cortical infarct are identified. 2. Scattered areas of increased T2 signal in the white matter most consistent with mild microvascular ischemic demyelinative change. 3. There is fluid within the mastoid air cells bilaterally. Fausto Del Toro MD on February 17, 2017 at 12:30 Board Certified Radiologist. This report was verified electronically.
--- NOTE | 2017-02-17 13:58 | RADRPT ---
EXAM DATE/TIME: 02/17/2017 11:58 [facility] COMPARISON: FOOT RIGHT LIMITED (2VWS), February 14, 2017, 18:58. INDICATIONS : Right foot ulcer. MEDICAL HISTORY : Diabetes mellitus type 2. Hypertension. SURGICAL HISTORY : CABG ENCOUNTER: Subsequent ACUITY: 1 week PAIN SCORE: 0/10 LOCATION: Right foot TECHNIQUE: Multiplanar, multisequence MRI examination was performed without contrast. FINDINGS: There is marked has planus deformity of the foot with significant degenerative changes present in the tarsometatarsal joint and. These degenerative changes are worse in the lateral side of the foot raj n medial. There is enlarged ulceration on the lateral side of the foot extending through the subcutaneous tissu es to touch the tibialis posterior tendon at its insertion. There is minimal marrow changes base of the fifth metatarsal suspicious for osteoarthritis. Remainder of the marrow is homogeneous. CONCLUSION: Ulcer plantar surface of the foot, lateral side with edema base of the fifth metatar ana consistent with osteoarthritis. This does involve the insertion of the peroneus brevis tendon on the base of the fifth metatarsal. Ag Del Toro MD FACR on February 17, 2017 at 13:49 Board Certified Radiologist. This report was verified electronically.
[2017-02-17 17:39] LABS: HEMOGLOBIN A1a 1.3 %; HEMOGLOBIN A1b 0.8 %; HEMOGLOBIN Ao 82.2 %; HEMOGLOBIN F 1.3 %; HEMOGLOBIN LA1C 2.3 %; HEMOGLOBIN P3 4.4 %
[2017-02-17] MEDS ORDERED: VANCOMYCIN INJ 1,400 MG in SODIUM CHLORID 0.9% 500 ML INJ 500 ML IV SCH (18:00)
--- NOTE | 2017-02-17 18:08 | PD.POD ---
Subjective Podiatric Problems R foot ulceration, original consultation was earlier in the week and apparently patient readmitted (??) Objective Vital Signs Vital Signs Date Time Temp Pulse Resp B/P (MAP) Pulse Ox O2 Delivery O2 Flow Rate FiO2 02/17/17 16:00 92 02/17/17 16:00 98.4 87 16 137/73 (94) 94 02/17/17 14:00 92 02/17/17 12:00 98.4 92 16 163/100 (121) 94 02/17/17 12:00 92 02/17/17 10:00 92 02/17/17 10:00 85 02/17/17 09:28 95 Nasal Cannula 4.00 02/17/17 08:00 97.9 85 14 147/66 (93) 94 02/17/17 08:00 85 02/17/17 07:00 97 Bi-Pap 40 02/17/17 06:00 78 02/17/17 04:00 96.9 83 14 168/74 (105) 94 02/17/17 04:00 83 02/17/17 03:58 96 40 02/17/17 02:57 95 Bi-Pap 12.00 40 02/17/17 02:00 81 02/17/17 00:00 75 02/17/17 00:00 97.5 75 17 159/77 (104) 93 02/16/17 23:26 96 BiPAP 50 02/16/17 23:26 96 50 02/16/17 22:00 69 02/16/17 20:56 95 Venturi Mask 50 02/16/17 20:30 97 Partial Rebreather 13.00 02/16/17 20:00 97.0 74 15 157/76 (103) 96 02/16/17 20:00 74 02/16/17 19:45 97 Non-Rebreather 13.00 Coded Allergies: No Known Allergies (Unverified , 02/12/17) Medications and IVs Current Medications Medications (Trade) Dose Ordered Sig/Fátima Route Start Time Stop Time Status Last Admin (Norvasc) 5 mg DAILY PO 02/17/17 09:00 (Aspirin Chew) 81 mg DAILY CHEW 02/17/17 09:00 (Plavix) 75 mg DAILY PO 02/17/17 09:00 (Lopressor) 50 mg Q12HR PO 02/16/17 21:00 (Apresoline) 100 mg Q8HR PO 02/16/17 22:00 02/17/17 15:36 Pharmacy Profile Note 0 ml @ 0 mls/hr UNSCH OTHER 02/16/17 17:15 Vancomycin HCl 1400 mg/Sodium Chloride 514 ml @ 250 mls/hr Q24H IV 02/17/17 18:00 (SoluMEDROL INJ) 40 mg Q6H IV PUSH 02/16/17 20:00 02/17/17 15:35 (Mucinex Er) 600 mg BID PO 02/16/17 21:00 (Duoneb Neb) 1 ampule Q4HR NEB PRN NEB 02/16/17 17:45 (Zoloft) 25 mg DAILY PO 02/17/17 09:00 (SEROquel) 12.5 mg BID@09,12 PO 02/17/17 09:00 02/17/17 15:35 (Lipitor) 40 mg HS PO 02/16/17 21:00 (Zithromax) 500 mg DAILY PO 02/17/17 09:00 Future Hold (NovoLOG SUPPLEMENTAL SCALE) 1 ACHS SLIDING SCALE SQ 02/16/17 21:00 Miscellaneous Information 1 Q361D XX 02/16/17 17:45 (Chlorhexidine 2% Cloth) 3 pack Taper DAILY@04 TOP 02/17/17 04:00 02/13/18 03:59 02/17/17 04:00 (Chlorhexidine 2% Cloth) 3 pack UNSCH PRN TOP 02/16/17 17:45 (D50w (Vial) Inj) 50 ml UNSCH PRN IV PUSH 02/16/17 17:45 (Glucagon Inj) 1 mg UNSCH PRN OTHER 02/16/17 17:45 (Pill Splitter) 1 ea UNSCH PRN OTHER 02/16/17 19:30 (Apresoline Inj) 10 mg Q6H PRN IV PUSH 02/16/17 20:15 Levofloxacin/ Dextrose 150 ml @ 100 mls/hr Q48H IV 02/17/17 09:00 02/17/17 09:02 Azithromycin 500 mg/Sodium Chloride 250 ml @ 250 mls/hr Q24H IV 02/17/17 09:00 02/17/17 09:00 (Heparin Inj) 5,000 units Q12HR SQ 02/17/17 21:00 (Neurontin) 600 mg BID PO 02/17/17 21:00 Other Results Last 72 hours Impressions Foot MRI 02/17/17 0000 Signed Impressions: Service Date/Time: Friday, February 17, 2017 11:58 - CONCLUSION: Ulcer plantar surface of the foot, lateral side with edema base of the fifth metatarsal consistent with osteoarthritis. This does involve the insertion of the peroneus brevis tendon on the base of the fifth metatarsal. Ag Del Toro MD FACR Brain MRI 02/17/17 0000 Signed Impressions: Service Date/Time: Friday, February 17, 2017 11:48 - CONCLUSION: 1. No findings to indicate acute cortical infarct are identified. 2. Scattered areas of increased T2 signal in the white matter most consistent with mild microvascular ischemic demyelinative change. 3. There is fluid within the mastoid air cells bilaterally. Fausto Del Toro MD Physical Exam Remarks unchanged since consultation examination. Assessment & Plan A/P R foot ulcer Plan for bedside debridement maybe tomorrow late evening after cases finished in OR Ordered supplies to be available at nurses station for this upon my arrival Eric Nagel DPM Feb 17, 2017 18:08
[2017-02-17 18:12] LABS: BLOOD, URINE NEG (NEG); GLUCOSE,URINE NEG (NEG); KETONE, URINE NEG (NEG); MUCUS URINE FEW /lpf (OCC); NITRITE,URINE NEG (NEG); SQUAMOUS EPITHELIAL CELL URINE 1 /hpf (0-5); URINE COLOR YELLOW (YELLW/STRAW)
[2017-02-17 18:15] LABS: COMMENT (UR) CATH-CULT NOT IND; CULTURE IF INDICATED CATH CULTURE NOT IND
[2017-02-17] MEDS ORDERED: CHLORHEXIDINE GLUCONATE 4% SOLN 120 ML BTL TOPICAL ONE (18:15)
--- NOTE | 2017-02-17 18:59 | HHI.PR ---
Subjective Remarks ALERT NO SOB Objective Vital Signs Date Time Temp Pulse Resp B/P (MAP) Pulse Ox O2 Delivery O2 Flow Rate FiO2 02/17/17 18:00 81 02/17/17 16:00 92 02/17/17 16:00 98.4 87 16 137/73 (94) 94 02/17/17 14:00 92 02/17/17 12:00 98.4 92 16 163/100 (121) 94 02/17/17 12:00 92 02/17/17 10:00 92 02/17/17 10:00 85 02/17/17 09:28 95 Nasal Cannula 4.00 02/17/17 08:00 97.9 85 14 147/66 (93) 94 02/17/17 08:00 85 02/17/17 07:00 97 Bi-Pap 40 02/17/17 06:00 78 02/17/17 04:00 96.9 83 14 168/74 (105) 94 02/17/17 04:00 83 02/17/17 03:58 96 40 02/17/17 02:57 95 Bi-Pap 12.00 40 02/17/17 02:00 81 02/17/17 00:00 75 02/17/17 00:00 97.5 75 17 159/77 (104) 93 02/16/17 23:26 96 BiPAP 50 02/16/17 23:26 96 50 02/16/17 22:00 69 02/16/17 20:56 95 Venturi Mask 50 02/16/17 20:30 97 Partial Rebreather 13.00 02/16/17 20:00 97.0 74 15 157/76 (103) 96 02/16/17 20:00 74 02/16/17 19:45 97 Non-Rebreather 13.00 I/O 02/16/17 02/16/17 02/16/17 02/17/17 02/17/17 02/17/17 07:00 15:00 23:00 07:00 15:00 23:00 Intake Total 517.5 ml Output Total 0 ml 1200 ml Balance 517.5 ml 0 ml -1200 ml Intake IV Total 517.5 ml Output Urine Total 1200 ml Stool Total 0 ml # Voids 1 2 2 Result Diagram: 02/17/1750902/17/17 0510 Objective Remarks GENERAL: SKIN: Warm and dry. HEAD: Atraumatic. Normocephalic. EYES: Pupils equal and round. No scleral icterus. No injection or drainage. ENT: No nasal bleeding or discharge. Mucous membranes pink and moist. NECK: Trachea midline. No JVD. CARDIOVASCULAR: Regular rate and rhythm. RESPIRATORY: No accessory muscle use. Clear to auscultation. Breath sounds equal bilaterally. GASTROINTESTINAL: Abdomen soft, non-tender, nondistended. Hepatic and splenic margins not palpable. MUSCULOSKELETAL: Extremities without clubbing, cyanosis, or edema. No obvious deformities. NEUROLOGICAL: Awake and alert. No obvious cranial nerve deficits. Motor grossly within normal limits. Five out of 5 muscle strength in the arms and legs. Normal speech. PSYCHIATRIC: Appropriate mood and affect; insight and judgment normal. Assessment and Plan Assessment and Plan RESPIRATORY FAILURE COPD DEMENTIA PLAN O2 NEEDED BRONCHODILATOR THERAPY F/U Devon Cole MD Feb 17, 2017 18:59
--- NOTE | 2017-02-17 20:43 | MG ---
cc: PREETI NATHAN M.D. Lab No: [id number] Date: Age: 66 Sex: F Race: 66-year-old woman. Hyperventilation not performed. Confusion, hallucinations, O2 sats in 80s. Levaquin, Zoloft, Norvasc, Seroquel, Neurontin. Some diffuse 6 Hz slowing is noted. A lot of bitemporal muscle artifact is seen. No major hemisphere asymmetry is noted. No epileptiform or seizure activity is seen. Photic stimulation was performed without significant posterior driving. Hyperventilation not performed. IMPRESSION: Diffuse slowing consistent with a moderate diffuse encephalopathy. I did not note any hemisphere asymmetry or epileptiform or seizure activity MD ANABELLA Curry/FRANKO /6:30 PM /8:41 PM
[2017-02-17] MEDS: ATORVASTATIN 40 MG TAB PO SCH (21:08)
[2017-02-17] MEDS: GABAPENTIN 300 MG CAP PO SCH (21:08)
[2017-02-17] MEDS: HEPARIN SODIUM - SQ 10,000 UNITS/ML VIAL SQ SCH (21:23)
[2017-02-18] VITALS (15 sets, daily range): BP systolic 106–134; BP diastolic 56–65; PULSE 69–82; RESP 14–26; TEMP 97.9–98.5; O2SAT 96–99
[2017-02-18] MEDS: methylPREDNISolone SOD SUCC 40 MG/1 ML VIAL IV PUSH SCH ×4 (02:37→20:53)
[2017-02-18] MEDS: CHLORHEXIDINE GLUCONATE 2 % 1 PACK (2 CLOTHS) TOP SCH (04:00)
--- NOTE | 2017-02-18 04:47 | RADRPT ---
EXAM DATE/TIME: 02/18/2017 03:17 [facility] COMPARISON: No previous studies available for comparison. INDICATIONS : Short of breath. MEDICAL HISTORY : Diabetes mellitus type 2. Hypertension. SURGICAL HISTORY : CABG. ENCOUNTER: Subsequent ACUITY: 1 week PAIN SCORE: Non-responsive. LOCATION: Bilateral chest FINDINGS: A single view of the chest demonstrates bilateral perihilar vascular congestion. There clips and wire s suggesting CABG. The lowest wire is fractured. The cardiac silhouette remains widened. Osseous st ructures are intact. CONCLUSION: Clips and wires suggests CABG. Bilateral perihilar vascular congestion. Avinash Brito MD on February 18, 2017 at 4:45 Board Certified Radiologist. This report was verified electronically.
[2017-02-18] MEDS: hydrALAZINE HCL 100 MG TAB PO SCH ×3 (05:50→20:52)
[2017-02-18 07:04] LABS: AUTOMATED NEUTROPHIL # 5.9 TH/MM3 (1.8-7.7); BASOPHIL % 0.3 % (0.0-2.0); HEMATOCRIT 27.3 % (35.0-46.0); LYMPH % 7.3 % (9.0-44.0); LYMPHOCYTE # 0.5 TH/MM3 (1.0-4.8); MEAN CELL VOLUME 85.5 FL (80.0-100.0); MEAN CORPUSCULAR HGB CONC 31.6 % (32.0-36.0); MONO % 2.2 % (0.0-8.0); NEUT % 90.2 % (16.0-70.0); PLATELET COUNT 210 TH/MM3 (150-450); RED BLOOD COUNT 3.19 MIL/MM3 (4.00-5.30); RED CELL DISTRIBUTION WIDTH 18.3 % (11.6-17.2); WHITE BLOOD COUNT 6.6 TH/MM3 (4.0-11.0)
[2017-02-18 07:11] LABS: HEMO FLAGS AUTO DIFF
[2017-02-18 07:36] LABS: ALKALINE PHOSPHATASE 91 U/L (45-117); ALT (GPT) 23 U/L (10-53); ANION GAP 8 MEQ/L (5-15); AST (GOT) 17 U/L (15-37); BICARBONATE 29.5 MEQ/L (21.0-32.0); BLOOD UREA NITROGEN 60 MG/DL (7-18); CHLORIDE 99 MEQ/L (98-107); GLOMERULAR FILTRATION RATE 37 ML/MIN (>89); MAGNESIUM 2.6 MG/DL (1.5-2.5); SODIUM (NA) 136 MEQ/L (136-145); TOTAL BILIRUBIN ADULT 0.4 MG/DL (0.2-1.0)
[2017-02-18] MEDS: HEPARIN SODIUM - SQ 10,000 UNITS/ML VIAL SQ SCH ×2 (08:09→20:52)
[2017-02-18] MEDS: AZITHROMYCIN INJ 500 MG in SODIUM CHLOR 0.9% 250 ML INJ 250 ML IV SCH (08:10)
[2017-02-18] MEDS: ASPIRIN 81 MG CHEW TAB CHEW SCH (08:10)
[2017-02-18] MEDS: amLODIPine BESYLATE 5 MG TAB PO SCH (08:10)
[2017-02-18] MEDS: QUEtiapine FUMARATE 25 MG TAB PO SCH ×2 (08:10→12:38)
[2017-02-18] MEDS: CLOPIDOGREL 75 MG TAB PO SCH (08:11)
[2017-02-18] MEDS: GABAPENTIN 300 MG CAP PO SCH ×2 (08:11→20:53)
[2017-02-18] MEDS: SERTRALINE HCL 50 MG TAB PO SCH (08:11)
[2017-02-18] MEDS: guaiFENesin E.R. 600 MG TAB PO SCH ×2 (08:11→20:51)
[2017-02-18] MEDS: METOPROLOL TARTRATE 50 MG TAB PO SCH ×2 (08:11→20:52)
[2017-02-18] MEDS: INSULIN ASPART SUPPLEMENTAL SCALE SQ SCH ×4 (08:27→21:20)
[2017-02-18 08:33] LABS: PLATELET ESTIMATE SMEAR NORMAL (NORMAL); PLATELET MORPHOLOGY NORMAL (NORMAL); SCAN/DIFF AUTO DIFF CONFIRMED
--- NOTE | 2017-02-18 08:44 | HHI.PR ---
Review/Management Diagnosis/Plan: (1) Encephalopathy, metabolic ICD Codes: G93.41 - Metabolic encephalopathy Status: Acute Plan: likely related to hypoxia/hypercapnia ?chf exacerbation hx of underlying dementia? doing better recs neuro stable mri- no acute lesion eeg- no sz ok for floor, d/c planning from neuro (2) Respiratory distress ICD Codes: R06.03 - Acute respiratory distress Status: Acute Plan: resolved (3) CHF (congestive heart failure) ICD Codes: I50.9 - Heart failure, unspecified Status: Acute (4) DEMENTIA IN OTH DISEASES CLASSD ELSWHR W/O BEHAVRL DISTURB ICD Codes: F02.80 - DEMENTIA IN OTH DISEASES CLASSD ELSWHR W/O BEHAVRL DISTURB Status: Chronic Subjective Subjective Comments No acute events reported No headache No chest pain No dyspnea Active Medications Current Medications Medications (Trade) Dose Ordered Sig/Fátima Route Start Time Stop Time Status Last Admin (Norvasc) 5 mg DAILY PO 02/17/17 09:00 02/18/17 08:10 (Aspirin Chew) 81 mg DAILY CHEW 02/17/17 09:00 02/18/17 08:10 (Plavix) 75 mg DAILY PO 02/17/17 09:00 02/18/17 08:11 (Lopressor) 50 mg Q12HR PO 02/16/17 21:00 02/18/17 08:11 (Apresoline) 100 mg Q8HR PO 02/16/17 22:00 02/18/17 05:50 Pharmacy Profile Note 0 ml @ 0 mls/hr UNSCH OTHER 02/16/17 17:15 Vancomycin HCl 1400 mg/Sodium Chloride 514 ml @ 250 mls/hr Q24H IV 02/17/17 18:00 02/17/17 18:00 (SoluMEDROL INJ) 40 mg Q6H IV PUSH 02/16/17 20:00 02/18/17 08:11 (Mucinex Er) 600 mg BID PO 02/16/17 21:00 02/18/17 08:11 (Duoneb Neb) 1 ampule Q4HR NEB PRN NEB 02/16/17 17:45 (Zoloft) 25 mg DAILY PO 02/17/17 09:00 02/18/17 08:11 (SEROquel) 12.5 mg BID@,12 PO 02/17/17 09:00 02/18/17 08:10 (Lipitor) 40 mg HS PO 02/16/17 21:00 02/17/17 21:08 (Zithromax) 500 mg DAILY PO 02/17/17 09:00 Future Hold (NovoLOG SUPPLEMENTAL SCALE) 1 ACHS SLIDING SCALE SQ 02/16/17 21:00 02/18/17 08:27 Miscellaneous Information 1 Q361D XX 02/16/17 17:45 (Chlorhexidine 2% Cloth) 3 pack Taper DAILY@04 TOP 02/17/17 04:00 02/13/18 03:59 02/18/17 04:00 (Chlorhexidine 2% Cloth) 3 pack UNSCH PRN TOP 02/16/17 17:45 (D50w (Vial) Inj) 50 ml UNSCH PRN IV PUSH 02/16/17 17:45 (Glucagon Inj) 1 mg UNSCH PRN OTHER 02/16/17 17:45 (Pill Splitter) 1 ea UNSCH PRN OTHER 02/16/17 19:30 (Apresoline Inj) 10 mg Q6H PRN IV PUSH 02/16/17 20:15 Levofloxacin/ Dextrose 150 ml @ 100 mls/hr Q48H IV 02/17/17 09:00 02/17/17 09:02 Azithromycin 500 mg/Sodium Chloride 250 ml @ 250 mls/hr Q24H IV 02/17/17 09:00 02/18/17 08:10 (Heparin Inj) 5,000 units Q12HR SQ 02/17/17 21:00 02/18/17 08:09 (Neurontin) 600 mg BID PO 02/17/17 21:00 02/18/17 08:11 Allergies Allergies Coded Allergies No Known Allergies (Goefhioemc08/10/17) Review of Systems All other ROS: ROS reviewed as documented in chart Exam I&O / VS Vital Signs Date Time Temp Pulse Resp B/P (MAP) Pulse Ox O2 Delivery O2 Flow Rate FiO2 02/18/17 06:00 82 02/18/17 04:00 98.5 78 24 119/63 (81) 97 02/18/17 04:00 78 02/18/17 02:00 74 02/18/17 00:00 98.5 71 20 134/65 (88) 96 02/18/17 00:00 71 02/17/17 22:00 74 02/17/17 20:00 91 02/17/17 20:00 98.3 91 24 123/59 (80) 99 02/17/17 19:00 Nasal Cannula 4.00 02/17/17 18:00 81 02/17/17 16:00 92 02/17/17 16:00 98.4 87 16 137/73 (94) 94 02/17/17 14:00 92 02/17/17 12:00 98.4 92 16 163/100 (121) 94 02/17/17 12:00 92 02/17/17 10:00 92 02/17/17 10:00 85 02/17/17 09:28 95 Nasal Cannula 4.00 General: Mild distress Neurologic: Alert Psychiatric: Cooperative Exam Comments alert, looks well, ox 2, converses in colombian, eomi, follows, ou 3-2mm, burks to gravity, le with dystrophic changes, planterflexor, no clonus Objective Micro and Labs Laboratory Tests Test 02/17/17 15:45 02/18/17 06:02 Urine Color YELLOW Urine Turbidity HAZY Urine pH 5.0 Urine Specific [place] 1.014 Urine Protein 30 Urine Glucose (UA) NEG Urine Ketones NEG Urine Occult Blood NEG Urine Nitrite NEG Urine Bilirubin NEG Urine Urobilinogen LESS THAN 2.0 Urine Leukocyte Esterase NEG Urine RBC 2 Urine WBC 2 Urine Squamous Epithelial Cells 1 Urine Amorphous Sediment RARE Urine Mucus FEW Microscopic Urinalysis Comment CATH-CULT NOT IND White Blood Count 6.6 Red Blood Count 3.19 Hemoglobin 8.6 Hematocrit 27.3 Mean Corpuscular Volume 85.5 Mean Corpuscular Hemoglobin 27.0 Mean Corpuscular Hemoglobin Concent 31.6 Red Cell Distribution Width 18.3 Platelet Count 210 Mean Platelet Volume 7.8 Neutrophils (%) (Auto) 90.2 Lymphocytes (%) (Auto) 7.3 Monocytes (%) (Auto) 2.2 Eosinophils (%) (Auto) 0.0 Basophils (%) (Auto) 0.3 Neutrophils # (Auto) 5.9 Lymphocytes # (Auto) 0.5 Monocytes # (Auto) 0.1 Eosinophils # (Auto) 0.0 Basophils # (Auto) 0.0 CBC Comment AUTO DIFF Differential Comment AUTO DIFF CONFIRMED Platelet Estimate NORMAL Platelet Morphology Comment NORMAL Blood Urea Nitrogen 60 Creatinine 1.41 Random Glucose 226 Total Protein 7.5 Albumin 2.3 Calcium Level 8.2 Phosphorus Level 5.1 Magnesium Level 2.6 Alkaline Phosphatase 91 Aspartate Amino Transf (AST/SGOT) 17 Alanine Aminotransferase (ALT/SGPT) 23 Total Bilirubin 0.4 Sodium Level 136 Potassium Level 5.0 Chloride Level 99 Carbon Dioxide Level 29.5 Anion Gap 8 Estimat Glomerular Filtration Rate 37 Problem Qualifiers (1) CHF (congestive heart failure): Darien Rice MD Feb 18, 2017 08:44
--- NOTE | 2017-02-18 11:02 | HHI.PR ---
Subjective Remarks 66-year-old female brought in from SNF for evaluation of suicidal ideation. was admitted to MEDICAL PSYCHIATRY and now TRANSFERRED to ICU for RESPIRATORY DISTRESS AND COPD AND CHF after [facility] was called. PATIENT WAS noted to be hypoxic and hypercapnic. limited hx from pt. medical chart reviewed. 02-17 WAS ON BIPAP LAST NIGHT PASSED SWALLOW WITH SPEECH- MECHANICAL SOFT DIET DM FOR MRI OF HEAD AND FOOT TODAY HAD EEG- TODAY DW RN AND PT AND SPEECH AND CCM 02-18 TO HAVE DEBRIDEMENT OF RIGHT FOOT AT BEDSIDE BY PODIATRY DW RN AND PATIENT NO NEW COMPLAINTS Objective Vitals Vital Signs Date Time Temp Pulse Resp B/P (MAP) Pulse Ox O2 Delivery O2 Flow Rate FiO2 02/18/17 10:00 82 02/18/17 08:52 96 Nasal Cannula 4.00 02/18/17 08:00 80 02/18/17 08:00 98.2 80 26 127/61 (83) 96 02/18/17 07:00 96 Nasal Cannula 3.00 02/18/17 06:00 82 02/18/17 04:00 98.5 78 24 119/63 (81) 97 02/18/17 04:00 78 02/18/17 02:00 74 02/18/17 00:00 98.5 71 20 134/65 (88) 96 02/18/17 00:00 71 02/17/17 22:00 74 02/17/17 20:00 91 02/17/17 20:00 98.3 91 24 123/59 (80) 99 02/17/17 19:00 Nasal Cannula 4.00 02/17/17 18:00 81 02/17/17 16:00 92 02/17/17 16:00 98.4 87 16 137/73 (94) 94 02/17/17 14:00 92 02/17/17 12:00 98.4 92 16 163/100 (121) 94 02/17/17 12:00 92 I/O 02/17/17 02/17/17 02/17/17 02/18/17 02/18/17 02/18/17 07:00 15:00 23:00 07:00 15:00 23:00 Intake Total 400 ml 614 ml 250 ml Output Total 0 ml 1200 ml 0 ml Balance 0 ml 400 ml -1200 ml 614 ml 250 ml Intake Oral 100 ml IV Total 400 ml 514 ml 250 ml Output Urine Total 1200 ml Stool Total 0 ml 0 ml # Voids 2 2 2 Result Diagram: 02/18/17 0602 02/18/17 0602 Other Results Laboratory Tests Test 02/16/17 16:00 02/16/17 17:20 02/16/17 20:16 02/17/17 01:14 Nasal Screen MRSA (PCR) MRSA NOT DETECTED Ammonia 35 MCMOL/L B-Type Natriuretic Peptide 213 PG/ML Vitamin B12 Level 590 PG/ML Blood Gas Puncture Site RT RADIAL RT BRACHIAL Blood Gas Patient Temperature 98.6 98.6 Blood Gas HCO3 35 mmol/L 33 mmol/L Blood Gas Base Excess 8.5 mmol/L 7.6 mmol/L Blood Gas Oxygen Saturation 97 % 96 % Arterial Blood pH 7.32 7.36 Arterial Blood Partial Pressure CO2 69 mmHg 60 mmHg Arterial Blood Partial Pressure O2 166 mmHg 117 mmHg Arterial Blood Oxygen Content 11.8 Vol % 12.6 Vol % Arterial Blood Carboxyhemoglobin 1.3 % 1.4 % Arterial Blood Methemoglobin 1.3 % 1.2 % Blood Gas Hemoglobin 8.4 G/DL 9.2 G/DL Oxygen Delivery Device PRB BIPAP Blood Gas Liter Flow 13 L/M Blood Gas Ventilator Setting 10/5 BUR 8 40% Blood Gas Inspired Oxygen 40 % Test 02/17/17 05:10 02/17/17 15:45 02/18/17 06:02 White Blood Count 5.5 TH/MM3 6.6 TH/MM3 Red Blood Count 3.42 MIL/MM3 3.19 MIL/MM3 Hemoglobin 9.2 GM/DL 8.6 GM/DL Hematocrit 29.4 % 27.3 % Mean Corpuscular Volume 85.9 FL 85.5 FL Mean Corpuscular Hemoglobin 26.8 PG 27.0 PG Mean Corpuscular Hemoglobin Concent 31.2 % 31.6 % Red Cell Distribution Width 18.4 % 18.3 % Platelet Count 174 TH/MM3 210 TH/MM3 Mean Platelet Volume 8.1 FL 7.8 FL Neutrophils (%) (Auto) 90.1 % 90.2 % Lymphocytes (%) (Auto) 7.5 % 7.3 % Monocytes (%) (Auto) 1.7 % 2.2 % Eosinophils (%) (Auto) 0.2 % 0.0 % Basophils (%) (Auto) 0.5 % 0.3 % Neutrophils # (Auto) 5.0 TH/MM3 5.9 TH/MM3 Lymphocytes # (Auto) 0.4 TH/MM3 0.5 TH/MM3 Monocytes # (Auto) 0.1 TH/MM3 0.1 TH/MM3 Eosinophils # (Auto) 0.0 TH/MM3 0.0 TH/MM3 Basophils # (Auto) 0.0 TH/MM3 0.0 TH/MM3 CBC Comment DIFF FINAL AUTO DIFF Differential Comment AUTO DIFF CONFIRMED Blood Urea Nitrogen 48 MG/DL 60 MG/DL Creatinine 1.28 MG/DL 1.41 MG/DL Random Glucose 140 MG/DL 226 MG/DL Total Protein 8.0 GM/DL 7.5 GM/DL Albumin 2.5 GM/DL 2.3 GM/DL Calcium Level 8.7 MG/DL 8.2 MG/DL Phosphorus Level 5.5 MG/DL 5.1 MG/DL Magnesium Level 2.5 MG/DL 2.6 MG/DL Alkaline Phosphatase 113 U/L 91 U/L Aspartate Amino Transf (AST/SGOT) 18 U/L 17 U/L Alanine Aminotransferase (ALT/SGPT) 24 U/L 23 U/L Total Bilirubin 0.6 MG/DL 0.4 MG/DL Sodium Level 137 MEQ/L 136 MEQ/L Potassium Level 5.0 MEQ/L 5.0 MEQ/L Chloride Level 98 MEQ/L 99 MEQ/L Carbon Dioxide Level 31.0 MEQ/L 29.5 MEQ/L Anion Gap 8 MEQ/L 8 MEQ/L Estimat Glomerular Filtration Rate 42 ML/MIN 37 ML/MIN Hemoglobin A1c 7.5 % Free Thyroxine 2.10 NG/DL Thyroid Stimulating Hormone 3rd Gen 3.350 uIU/ML Urine Color YELLOW Urine Turbidity HAZY Urine pH 5.0 Urine Specific [place] 1.014 Urine Protein 30 mg/dL Urine Glucose (UA) NEG mg/dL Urine Ketones NEG mg/dL Urine Occult Blood NEG Urine Nitrite NEG Urine Bilirubin NEG Urine Urobilinogen LESS THAN 2.0 MG/DL Urine Leukocyte Esterase NEG Urine RBC 2 /hpf Urine WBC 2 /hpf Urine Squamous Epithelial Cells 1 /hpf Urine Amorphous Sediment RARE Urine Mucus FEW /lpf Microscopic Urinalysis Comment CATH-CULT NOT IND Platelet Estimate NORMAL Platelet Morphology Comment NORMAL Imaging Last Impressions Chest X-Ray 02/18/17 0600 Signed Impressions: Service Date/Time: February 03:17 - CONCLUSION: Clips and wires suggests CABG. Bilateral perihilar vascular congestion. Avinash Brito MD Foot MRI 02/17/17 0000 Signed Impressions: Service Date/Time: Friday, February 17, 2017 11:58 - CONCLUSION: Ulcer plantar surface of the foot, lateral side with edema base of the fifth metatarsal consistent with osteoarthritis. This does involve the insertion of the peroneus brevis tendon on the base of the fifth metatarsal. Ag Del Toro MD FACR Brain MRI 02/17/17 0000 Signed Impressions: Service Date/Time: Friday, February 17, 2017 11:48 - CONCLUSION: 1. No findings to indicate acute cortical infarct are identified. 2. Scattered areas of increased T2 signal in the white matter most consistent with mild microvascular ischemic demyelinative change. 3. There is fluid within the mastoid air cells bilaterally. Fausto Del Toro MD Objective Remarks GENERAL: More awake and alert and oriented today more talkative and cooperative not lethargic SKIN: Warm and dry. Bilateral feet dressed HEAD: Atraumatic. Normocephalic. EYES: Pupils equal and round. No scleral icterus. No injection or drainage. Extraocular muscles intact ENT: No nasal bleeding or discharge. Mucous membranes pink and moist. Tongue is Midline NECK: Trachea midline. No JVD. Neck is supple CARDIOVASCULAR: Regular rate and rhythm. S1-S2 no S3-S4 no heave or thrill or rub or gallop RESPIRATORY: No accessory muscle use. Clear to auscultation. Breath sounds equal bilaterally. GASTROINTESTINAL: Abdomen soft, non-tender, nondistended. Hepatic and splenic margins not palpable. MUSCULOSKELETAL: Extremities without clubbing, cyanosis, or edema. No obvious deformities. NEUROLOGICAL: Awake and alert. No obvious cranial nerve deficits. Motor grossly within normal limits. 4 out of 5 muscle strength in the arms and legs. Normal speech. PSYCHIATRIC: INAppropriate mood and affect; insight and judgment ABnormal. Medications and IVs Current Medications Amlodipine Besylate (Norvasc) 5 mg DAILY PO Last administered on 02/18/17 08: 10; Start 02/17/17 at 09:00 Aspirin (Aspirin Chew) 81 mg DAILY CHEW Last administered on 02/18/17 08:10; Start 02/17/17 at 09:00 Clopidogrel Bisulfate (Plavix) 75 mg DAILY PO Last administered on 02/18/17 08:11; Start 02/17/17 at 09:00 Dextrose (D50w (Vial) Inj) 50 ml UNSCH PRN IV PUSH HYPOGLYCEMIA-SEE COMMENTS; Start 02/16/17 at 17:15; Stop 02/16/17 at 19:19; Status DC Glucagon (Glucagon Inj) 1 mg UNSCH PRN OTHER HYPOGLYCEMIA-SEE COMMENTS; Start 02/16/17 at 17:15; Stop 02/16/17 at 19:21; Status DC Insulin Human Regular (NovoLIN R SUPPLEMENTAL SCALE) 1 Q4H SQ ; Start 02/16/17 at 18:00; Stop 02/16/17 at 19:23; Status DC Metoprolol Tartrate (Lopressor) 50 mg Q12HR PO Last administered on 02/18/17 08:11; Start 02/16/17 at 21:00 Hydralazine HCl (Apresoline) 100 mg Q8HR PO Last administered on 02/18/17 05: 50; Start 02/16/17 at 22:00 Pharmacy Profile Note 0 ml @ 0 mls/hr UNSCH OTHER ; Start 02/16/17 at 17:15 Vancomycin HCl 1750 mg/Sodium Chloride 517.5 ml @ 250 mls/hr NOW ONCE IV Last administered on 02/16/17 18:10; Start 02/16/17 at 17:45; Stop 02/16/17 at 19:49; Status DC Vancomycin HCl 1400 mg/Sodium Chloride 514 ml @ 250 mls/hr Q24H IV Last administered on 02/17/17 18:00; Start 02/17/17 at 18:00 Methylprednisolone Sodium Succinate (SoluMEDROL INJ) 40 mg Q6H IV PUSH Last administered on 02/18/17 08:11; Start 02/16/17 at 20:00 Guaifenesin (Mucinex Er) 600 mg BID PO Last administered on 02/18/17 08:11; Start 02/16/17 at 21:00 Albuterol/ Ipratropium (Duoneb Neb) 1 ampule Q4HR NEB PRN NEB SHORTNESS OF BREATH; Start 02/16/17 at 17:45 Sertraline HCl (Zoloft) 25 mg DAILY PO Last administered on 02/18/17 08:11; Start 02/17/17 at 09:00 Quetiapine Fumarate (SEROquel) 12.5 mg BID@09,12 PO Last administered on 08:10; Start 02/17/17 at 09:00 Atorvastatin Calcium (Lipitor) 40 mg HS PO Last administered on 02/17/17 21: 08; Start 02/16/17 at 21:00 Gabapentin (Neurontin) 600 mg TID PO ; Start 02/16/17 at 18:00; Stop 02/17/17 at 14:50; Status DC Levofloxacin (Levaquin) 750 mg Q48H PO ; Start 02/17/17 at 09:00; Stop at 09:00; Status DC Azithromycin (Zithromax) 500 mg DAILY PO ; Start 02/17/17 at 09:00; Status Future Hold Insulin Aspart (NovoLOG SUPPLEMENTAL SCALE) 1 ACHS SLIDING SCALE SQ Last administered on 02/18/17 08:27; Start 02/16/17 at 21:00 Miscellaneous Information 1 Q361D XX ; Start 02/16/17 at 17:45 Chlorhexidine Gluconate (Chlorhexidine 2% Cloth) 3 pack Taper DAILY@04 TOP Last administered on 02/18/17 04:00; Start 02/17/17 at 04:00; Stop 02/13/18 at 03:59 Chlorhexidine Gluconate (Chlorhexidine 2% Cloth) 3 pack UNSCH PRN TOP HYGIENIC CARE; Start 02/16/17 at 17:45 Dextrose (D50w (Vial) Inj) 50 ml UNSCH PRN IV PUSH HYPOGLYCEMIA-SEE COMMENTS; Start 02/16/17 at 17:45 Glucagon (Glucagon Inj) 1 mg UNSCH PRN OTHER HYPOGLYCEMIA-SEE COMMENTS; Start 02/16/17 at 17:45 Miscellaneous (Pill Splitter) 1 ea UNSCH PRN OTHER SEE LABEL COMMENTS; Start 02/16/17 at 19:30 Hydralazine HCl (Apresoline Inj) 10 mg Q6H PRN IV PUSH SEE LABEL COMMENTS; Start 02/16/17 at 20:15 Levofloxacin/ Dextrose 150 ml @ 100 mls/hr Q48H IV Last administered on 09:02; Start 02/17/17 at 09:00 Azithromycin 500 mg/Sodium Chloride 250 ml @ 250 mls/hr Q24H IV Last administered on 02/18/17 08:10; Start 02/17/17 at 09:00 Heparin Sodium (Porcine) (Heparin Inj) 5,000 units Q12HR SQ Last administered on 02/18/17 08:09; Start 02/17/17 at 21:00 Gabapentin (Neurontin) 600 mg BID PO Last administered on 02/18/17 08:11; Start 02/17/17 at 21:00 Chlorhexidine Gluconate (Hibiclens 4% Top Soln) 1 applic ONCE ONCE TOPICAL ; Start 02/17/17 at 18:15; Stop 02/17/17 at 18:17; Status DC A/P Problem List: (1) Unspecified psychosis ICD Code: F29 - Unspecified psychosis not due to a substance or known physiological condition (2) DEMENTIA IN OTH DISEASES CLASSD ELSWHR W/O BEHAVRL DISTURB ICD Code: F02.80 - DEMENTIA IN OTH DISEASES CLASSD ELSWHR W/O BEHAVRL DISTURB Status: Chronic (3) Encephalopathy, metabolic ICD Code: G93.41 - Metabolic encephalopathy Status: Acute (4) CHF (congestive heart failure) ICD Code: I50.9 - Heart failure, unspecified Status: Acute (5) Respiratory distress ICD Code: R06.03 - Acute respiratory distress Status: Acute (6) Hypoxia ICD Code: R09.02 - Hypoxemia Assessment and Plan TRANSFERRED TO ICU AT REQUEST OF PSYCHIATRY 02-16 STARTING THIS MORNING PATIENT STARTED TO DECOMPENSATE 02-16 //Atypical pneumonia. //Hypoxic respiratory failure. Pulse oximetry 82 on room air on admission. On 4 L now //Possible CHF exacerbation WILL INCREASE LASIX TO 40MG IV DAILY -With productive cough -CT pulmonary angiogram with mediastinal adenopathy, bilateral pulmonary infiltrates. Duo Nebs, Azithromycin.LEVAQUIN. VANCO Continue diet with 1800 mL fluid restriction. WILL GET AM LABS HYPOXIA- MAY NEED STEROIDS AND NEB TREATMENT --Slow improvement Less hypoxic only on 4 L now //Hypertension. //CAD status post CABG 3 //history of CHF. Blood pressure acceptable. Continue home medications. Continue aspirin and Plavix. Continue to monitor. = BNP 284 on admission. Echocardiogram pending. Continue fluid restrictions. DIURESE //Diabetes mellitus type 2. -Blood sugars elevated. Insulin sliding scale added. Continue diabetic diet. continue Levemir.. Past swallow eval will continue on diabetic mechanical soft diet //Diabetic neuropathy. Due to renal sufficiency, will decrease gabapentin dose. Continue to monitor. //Hyperlipidemia. Continue home medications. //Bilateral feet with diabetic ulcers. Right worse than left. Patient is to be continued on Cipro and daptomycin until 02/19. Requesting outside records, still pending. -ESR 76. =Infectious disease consult at. Continue on vancomycin as per infectious disease. Appreciate assistance = Podiatry consulted follow-up recommendations. PODIATRY TO DO SURGERY AT BEDSIDE ON RIGHT LE WOUND 02-18 //Anemia. Hemoglobin 8.9. Uncertain chronicity. No signs of bleeding. Reorder labs. //Renal insufficiency. Creatinine 1.18. On admission. GFR 49 on admission. Uncertain baseline. = Creatinine 0.97. Outside records still pending. CONTINUE VANCO, ZITHRO, LEVAQUIN INCREASE LASIX TO 40MG IV DAILY AM LAB CONSULT PT AND OT FOR LEFT UE WEAKNESS INCENTIVE SPIROMETRY Discharge Planning Pending psychiatric clearance and infectious disease clearance and pulmonary clearance Problem Qualifiers (1) CHF (congestive heart failure): Ag Shin DO Feb 18, 2017 11:02
--- NOTE | 2017-02-18 11:33 | HHI.PYPN ---
Subjective Remarks Patient was seen today for psychiatric reevaluation, patient is found in the ICU , calm, cooperative and pleasant. She reports a good mood, she denies depressive symptoms, she says that she is looking forward to be discharged back home. The patient is partially oriented, she knows that she is in the hospital and is 2017. No paranoia, no agitation, no aggressive behavior, no disorganized speech are present. She denies suicidal and homicidal ideation, she denies visual and auditory hallucinations. I discussed the case with inpatient psychiatrist Dr. Muller who reports that the patient was already psychiatrically cleared when she was transferred to the ICU. Review of Systems Except as stated in HPI: all other systems reviewed are Neg Mental Status Examination Appearance: Appropriate Consciousness: Alert Orientation: x4 Motor Activity: Normal gait Speech: Unremarkable Language: Adequate Fund of Knowledge: Adequate Attention and Concentration: Adequate Memory: Unremarkable Mood: Appropriate Affect: Appropriate Thought Process & Associations: Intact Thought Content: Appropriate Hallucination Type: None Delusion Type: None Suicidal Ideation: No Suicidal Plan: No Suicidal Intention: No Homicidal Ideation: No Homicidal Plan: No Homicidal Intention: No Insight: Adequate Judgment: Adequate Results Labs Test 02/17/17 15:45 02/18/17 06:02 Urine Color YELLOW Urine Turbidity HAZY Urine pH 5.0 Urine Specific [place] 1.014 Urine Protein 30 mg/dL Urine Glucose (UA) NEG mg/dL Urine Ketones NEG mg/dL Urine Occult Blood NEG Urine Nitrite NEG Urine Bilirubin NEG Urine Urobilinogen LESS THAN 2.0 MG/DL Urine Leukocyte Esterase NEG Urine RBC 2 /hpf Urine WBC 2 /hpf Urine Squamous Epithelial Cells 1 /hpf Urine Amorphous Sediment RARE Urine Mucus FEW /lpf Microscopic Urinalysis Comment CATH-CULT NOT IND White Blood Count 6.6 TH/MM3 Red Blood Count 3.19 MIL/MM3 Hemoglobin 8.6 GM/DL Hematocrit 27.3 % Mean Corpuscular Volume 85.5 FL Mean Corpuscular Hemoglobin 27.0 PG Mean Corpuscular Hemoglobin Concent 31.6 % Red Cell Distribution Width 18.3 % Platelet Count 210 TH/MM3 Mean Platelet Volume 7.8 FL Neutrophils (%) (Auto) 90.2 % Lymphocytes (%) (Auto) 7.3 % Monocytes (%) (Auto) 2.2 % Eosinophils (%) (Auto) 0.0 % Basophils (%) (Auto) 0.3 % Neutrophils # (Auto) 5.9 TH/MM3 Lymphocytes # (Auto) 0.5 TH/MM3 Monocytes # (Auto) 0.1 TH/MM3 Eosinophils # (Auto) 0.0 TH/MM3 Basophils # (Auto) 0.0 TH/MM3 CBC Comment AUTO DIFF Differential Comment AUTO DIFF CONFIRMED Platelet Estimate NORMAL Platelet Morphology Comment NORMAL Blood Urea Nitrogen 60 MG/DL Creatinine 1.41 MG/DL Random Glucose 226 MG/DL Total Protein 7.5 GM/DL Albumin 2.3 GM/DL Calcium Level 8.2 MG/DL Phosphorus Level 5.1 MG/DL Magnesium Level 2.6 MG/DL Alkaline Phosphatase 91 U/L Aspartate Amino Transf (AST/SGOT) 17 U/L Alanine Aminotransferase (ALT/SGPT) 23 U/L Total Bilirubin 0.4 MG/DL Sodium Level 136 MEQ/L Potassium Level 5.0 MEQ/L Chloride Level 99 MEQ/L Carbon Dioxide Level 29.5 MEQ/L Anion Gap 8 MEQ/L Estimat Glomerular Filtration Rate 37 ML/MIN Vitals/IOs Vital Signs Date Time Temp Pulse Resp B/P (MAP) Pulse Ox O2 Delivery O2 Flow Rate FiO2 02/18/17 10:00 82 02/18/17 08:52 96 Nasal Cannula 4.00 02/18/17 08:00 98.2 26 127/61 (83) 02/17/17 07:00 40 Intake and Output 02/18/17 02/18/17 02/19/17 08:00 16:00 00:00 Intake Total 614 ml 250 ml Output Total 0 ml Balance 614 ml 250 ml Assessment & Plan Problem List: (1) Unspecified psychosis ICD Codes: F29 - Unspecified psychosis not due to a substance or known physiological condition Assessment & Plan: Continue current psychotropics. Patient is psychiatrically stable to continue medical treatment. Assessment & Plan Estimated LOS: days Justification for Cont. Inpt. Patient does not meet criteria for inpatient level of psychiatric care. Cornelio Nelson MD Feb 18, 2017 11:33
--- NOTE | 2017-02-18 12:31 | HHI.IDPN ---
Subjective Subjective Remarks The patient is a 66-year-old female, who I saw in the psychiatric unit last February 15, for evaluation of her right foot infection. She was initially admitted in the psych unit for suicidal ideation. [facility] and she was on IV Vanco was started February 11, and the plan was for her to get a two-week course of IV antibiotic. Of note is that the patient was on antibiotic, getting IV Cubicin and Cipro in the penitentiary, which look like it was started around February 05, however she was admitted at [facility] for evaluation of shortness of breath and altered mental status. There were very limited records for review, but during that admission she was found to have an ulcer on the right foot which apparently has been chronic. I did not have any information as to what kind of workup was done at that time. She had a CT of the chest during her hospitalization there and it did not show any pulmonary embolism, but showed pulmonary infiltrates suggestive of congestive heart failure. She was discharged February 11 to the penitent[facility] on IV Vanco, with plans to finish 2 week course. Patient however apparently had suicidal ideation in the penitentiary, so she was taken to [place] and was admitted in the psychiatric unit. Podiatry also saw her in the psych unit, and she was getting some workup for her right foot to determine the extent of her infection. Patient apparently had more shortness of breath, and decreased level of consciousness, so she was transferred to the main hospital, in the ICU for workup and closer monitoring. Patient currently complains of shortness of breath and complaints of chest pain. She states she is bringing up some phlegm and his color yellow. She is currently on BiPAP. Neurology also is evaluating the patient, and she just finished having her EEG done. Patient is afebrile. Her chest x-ray showing vascular engorgement, and bilateral interstitial prominence. She has had a CTA while at the psych unit, and it looks like it's the same finding as what she had at [facility]. Her WBC is normal. Patient is currently on IV Vanco, Levaquin, and Zithromax. Infectious disease consultation is requested to continue with management of her right foot infection Notes reviewed Breathing is about the same On nasal O2, sats good Good UO Tem[place] ok Antibiotics Vancomycin Levaquin Zithromax Lines PIV Past Medical History Charcot joint right foot Chronic ulcer right foot CAD CHF Anemia Depression Diabetes mellitus Past Surgical History CABG Allergies: Coded Allergies: No Known Allergies (Unverified , 02/12/17) Objective . Vital Signs Date Time Temp Pulse Resp B/P (MAP) Pulse Ox O2 Delivery O2 Flow Rate FiO2 02/18/17 10:00 82 02/18/17 08:52 96 Nasal Cannula 4.00 02/18/17 08:00 80 02/18/17 08:00 98.2 80 26 127/61 (83) 96 02/18/17 07:00 96 Nasal Cannula 3.00 02/18/17 06:00 82 02/18/17 04:00 98.5 78 24 119/63 (81) 97 02/18/17 04:00 78 02/18/17 02:00 74 02/18/17 00:00 98.5 71 20 134/65 (88) 96 02/18/17 00:00 71 02/17/17 22:00 74 02/17/17 20:00 91 02/17/17 20:00 98.3 91 24 123/59 (80) 99 02/17/17 19:00 Nasal Cannula 4.00 02/17/17 18:00 81 02/17/17 16:00 92 02/17/17 16:00 98.4 87 16 137/73 (94) 94 02/17/17 14:00 92 02/18/17 02/18/17 02/19/17 15:00 23:00 07:00 Intake Total 250 ml Balance 250 ml IV Total 250 ml . Laboratory Tests Test 02/17/17 05:10 02/18/17 06:02 White Blood Count 5.5 TH/MM3 6.6 TH/MM3 Red Blood Count 3.42 MIL/MM3 3.19 MIL/MM3 Hemoglobin 9.2 GM/DL 8.6 GM/DL Hematocrit 29.4 % 27.3 % Mean Corpuscular Volume 85.9 FL 85.5 FL Mean Corpuscular Hemoglobin 26.8 PG 27.0 PG Mean Corpuscular Hemoglobin Concent 31.2 % 31.6 % Red Cell Distribution Width 18.4 % 18.3 % Platelet Count 174 TH/MM3 210 TH/MM3 Mean Platelet Volume 8.1 FL 7.8 FL Neutrophils (%) (Auto) 90.1 % 90.2 % Lymphocytes (%) (Auto) 7.5 % 7.3 % Monocytes (%) (Auto) 1.7 % 2.2 % Eosinophils (%) (Auto) 0.2 % 0.0 % Basophils (%) (Auto) 0.5 % 0.3 % Neutrophils # (Auto) 5.0 TH/MM3 5.9 TH/MM3 Lymphocytes # (Auto) 0.4 TH/MM3 0.5 TH/MM3 Monocytes # (Auto) 0.1 TH/MM3 0.1 TH/MM3 Eosinophils # (Auto) 0.0 TH/MM3 0.0 TH/MM3 Basophils # (Auto) 0.0 TH/MM3 0.0 TH/MM3 CBC Comment DIFF FINAL AUTO DIFF Differential Comment AUTO DIFF CONFIRMED Platelet Estimate NORMAL Platelet Morphology Comment NORMAL Laboratory Tests Test 02/16/17 17:20 02/17/17 05:10 02/18/17 06:02 Ammonia 35 MCMOL/L B-Type Natriuretic Peptide 213 PG/ML Vitamin B12 Level 590 PG/ML Blood Urea Nitrogen 48 MG/DL 60 MG/DL Creatinine 1.28 MG/DL 1.41 MG/DL Random Glucose 140 MG/DL 226 MG/DL Total Protein 8.0 GM/DL 7.5 GM/DL Albumin 2.5 GM/DL 2.3 GM/DL Calcium Level 8.7 MG/DL 8.2 MG/DL Phosphorus Level 5.5 MG/DL 5.1 MG/DL Magnesium Level 2.5 MG/DL 2.6 MG/DL Alkaline Phosphatase 113 U/L 91 U/L Aspartate Amino Transf (AST/SGOT) 18 U/L 17 U/L Alanine Aminotransferase (ALT/SGPT) 24 U/L 23 U/L Total Bilirubin 0.6 MG/DL 0.4 MG/DL Sodium Level 137 MEQ/L 136 MEQ/L Potassium Level 5.0 MEQ/L 5.0 MEQ/L Chloride Level 98 MEQ/L 99 MEQ/L Carbon Dioxide Level 31.0 MEQ/L 29.5 MEQ/L Anion Gap 8 MEQ/L 8 MEQ/L Estimat Glomerular Filtration Rate 42 ML/MIN 37 ML/MIN Hemoglobin A1c 7.5 % Free Thyroxine 2.10 NG/DL Thyroid Stimulating Hormone 3rd Gen 3.350 uIU/ML Imaging Last Impressions Chest X-Ray 02/18/17 0600 Signed Impressions: Service Date/Time: February 03:17 - CONCLUSION: Clips and wires suggests CABG. Bilateral perihilar vascular congestion. Avinash Brito MD Foot MRI 02/17/17 0000 Signed Impressions: Service Date/Time: Friday, February 17, 2017 11:58 - CONCLUSION: Ulcer plantar surface of the foot, lateral side with edema base of the fifth metatarsal consistent with osteoarthritis. This does involve the insertion of the peroneus brevis tendon on the base of the fifth metatarsal. Ag Del Toro MD FACR Brain MRI 02/17/17 0000 Signed Impressions: Service Date/Time: Friday, February 17, 2017 11:48 - CONCLUSION: 1. No findings to indicate acute cortical infarct are identified. 2. Scattered areas of increased T2 signal in the white matter most consistent with mild microvascular ischemic demyelinative change. 3. There is fluid within the mastoid air cells bilaterally. Fausto Del Toro MD Physical Exam GENERAL: Awakens easily, looks comfortable at rest, on nasal O2. SKIN: Cool And dry. No generalized rash, no ecchymoses and no evidence of embolic lesions. HEAD: Atraumatic. Normocephalic. No temporal wasting, or tenderness. EYES: [place] conjunctiva. No petechia or hemorrhage. Pupils equal, round and reactive to light. Extraocular movements full and intact. No scleral icterus. No injection or drainage. EARS, NOSE AND THROAT: Nose without bleeding or purulent nasal discharge. No sinus tenderness. Mucous membranes pink and moist.On BIPAP mask NECK: Trachea midline. Supple and not tender, no meningeal signs CARDIOVASCULAR: Regular rate and rhythm. No murmurs, rubs or gallops heard. Sternotomy scar compatible with her surgical history. RESPIRATORY: Decreased breath sounds at bases. Breath sounds equal bilaterally. Rales at the bases. ABDOMEN: Soft, non-tender, nondistended. Bowel sounds present and normoactive. No guarding. No rebound. No organomegaly. EXTREMITIES: No clubbing, cyanosis. Has mild bilateral pedal edema. R foot , there is an ulcer on plantar aspect mid foot, it measures about 1.5 inch diameter, sclerotic border, dry, no purulence, no odor, no surrounding redness. Seem to have possibly beginning Charcot deformity of R foot. L foot - there is a round area plantar aspect midfoot, but not open wound, no erythema and also has similar possibly beginning Charcot deformity. No joint effusion, has good ROM. No calf tenderness. Well perfused and warm. NEUROLOGICAL: Awake and alert. Cranial nerves grossly intact. Motor grossly within normal limits. PSYCHIATRIC: Normal affect, calm and cooperative. LINE: PICC RUE with no evidence of infection Assessment & Plan Remarks IMPRESSION SOB, bilateral infiltrates, possibly CHF - was treated for PNA previously - Her CT looks similar findings as the one done at [facility] R foot plantar ulcer, currently does not look infected, no cellulitis - ?result of work-up in [facility], per SNF records she was supposed to get IV vanco x 14 days - possibly beginning Charcot foot durga Suicidal ideation RECOMMENDATION Patient is On IV vanco Will get records from [facility] - I had requested for it when I saw her in the psych unit, but I could not find them at this time Continue Levaquin Stop Zithromax Podiatry has been consulted - possibly bedside debridement Monitor progress Follow cultures Wound care to the right foot per podiatry Yuli Moulton MD Feb 18, 2017 12:31
--- NOTE | 2017-02-18 13:54 | HHI.CCPN ---
Subjective Remarks/Hospital Course The patient is a 66-year-old female with past medical history of Congestive heart failure, coronary artery disease with previous coronary artery bypass graft x3, hypertension, diabetes mellitus, depression, Who was admitted to med psych unit for suicidal ideation. Sh also has bilateral diabetic foot ulcers and is receiving IV antibiotics[facility]. The patient had blood gas earlier today on 5 liters oxygen which showed a pH of 7.40, CO2 57, pAO2 83, bicarb 35 and saturation 93%. Throughout the day she required increased O2 after she was found hypoxic and she was subsequently placed on a non-rebreather mask. Repeat ABG from 02:30 p.m. showed pH of 7.44. CO2 41. Also, CO2 51, pAO2 111, bicarb fifth 34 and sats 95%. A stat chest x-ray was ordered which showed cardiomegaly with pulmonary vascular engorgement and bilateral interstitial prominence. She had a CT scan of the of the chest on February 12 which showed no evidence of PE however it showed bilateral pulmonary infiltrates with mediastinal adenopathy, cardiomegaly and significant coronary artery atherosclerotic calcifications. When seen the patient is on a non-rebreather mask. She is non verbal. The patient was recently discharged from [facility] after she was admitted there for shortness of breath and altered mental status. She was discharged on a February 11 on IV antibiotics. She has a PICC line in the right upper extremity and has a chronic ulcer on the right foot. 02/17 Patient had ABG last night showed PH 7.32 with pCO2 69 she was subsequently placed on BIPAP 10/5 with 40% FIO2. Repeat ABG early this morning showed improvements in her resp. acidosis CT brain yesterday showed no acute findings. For MRI brain and EEG today. Afebrile. Subjective 02/18: Resting in bed currently on 3 L nasal cannula. In no acute distress. Afebrile. Objective Vital Signs Date Time Temp Pulse Resp B/P (MAP) Pulse Ox O2 Delivery O2 Flow Rate FiO2 02/18/17 12:00 69 02/18/17 12:00 98.5 17 106/56 (73) 97 02/18/17 08:52 Nasal Cannula 4.00 02/17/17 07:00 40 Intake and Output 02/18/17 02/18/17 02/19/17 08:00 16:00 00:00 Intake Total 614 ml 250 ml Output Total 0 ml Balance 614 ml 250 ml Result Diagram: 02/18/17 0602 02/18/17 0602 Imaging Last Impressions Chest X-Ray 02/18/17 0600 Signed Impressions: Service Date/Time: February 03:17 - CONCLUSION: Clips and wires suggests CABG. Bilateral perihilar vascular congestion. Avinash Brito MD Foot MRI 02/17/17 0000 Signed Impressions: Service Date/Time: Friday, February 17, 2017 11:58 - CONCLUSION: Ulcer plantar surface of the foot, lateral side with edema base of the fifth metatarsal consistent with osteoarthritis. This does involve the insertion of the peroneus brevis tendon on the base of the fifth metatarsal. Ag Del Toro MD FACR Brain MRI 02/17/17 0000 Signed Impressions: Service Date/Time: Friday, February 17, 2017 11:48 - CONCLUSION: 1. No findings to indicate acute cortical infarct are identified. 2. Scattered areas of increased T2 signal in the white matter most consistent with mild microvascular ischemic demyelinative change. 3. There is fluid within the mastoid air cells bilaterally. Fausto Del Toro MD Objective Remarks GENERAL: Patient is 66 yoAA female currently on nasal cannula in no acute distress SKIN: Warm and dry. HEAD: Normocephalic. EYES: No scleral icterus. No injection or drainage. NECK: Supple, trachea midline. No JVD or lymphadenopathy. CARDIOVASCULAR: Regular rate and rhythm without murmurs, gallops, or rubs. RESPIRATORY: Breath sounds equal bilaterally. No accessory muscle use. GASTROINTESTINAL: Abdomen soft, non-tender, nondistended. MUSCULOSKELETAL: No cyanosis, or edema. Neuro: Awake. Moves all 4 extremities spontaneously. No focal deficits A/P Assessment and Plan 1. Acute on chronic hypercapnic respiratory failure. 2. Encephalopathy. 3. Mild acute kidney injury. 4. Anemia/normocytic 5. Bilateral pulmonary infiltrates. ddx Infectious process versus fluid overload. 6. History of congestive heart failure/chronic diastolic. 7. Coronary artery disease/ coronary artery bypass graft times three. 8. Hypertension 9. Diabetes mellitus. 10. Right foot fifth metatarsal osteomyelitis 11. Depression 12: Hyper-magnesium 13: Hyperphosphatemia 14: Hypoalbuminemia Plan Neuro; Monitor neuro status closely and avoid any sedatives. On Zoloft 25 mg daily and Seroquel 12.5 mg twice a day CT brain 02/16: No acute findings. MRI brain 02/17 revealed mild scattered microvascular changes likely chronic ischemic disease. Mastoid air- fluid levels. 02/17 EEG revealed moderate encephalopathy no epileptiform activity. Neuro is following- Dr. Rice TSH measured at 5.1. Ammonia level 35 Pulm: Continue with oxygen maintain sats above 92%. Bronchodilators, Aspiration precautions. On Solumederol 40mg Q6 CV: Monitor HR and BP and maintain MAP> 65 mmHg. Continue with ASA 81 mg daily, Lipitor 40 mg p.o. q.h.s., hydralazine 100 mg t.i.d., Lopressor 50 mg b.i.d. Norvasc 5 mg daily. On Plavix 75 mg daily. Echo from 02/16 showed an EF of 50%. : Monitor renal function Is and Os and avoid any nephrotoxins. Electrolyte replacement as needed. GI: Speech eval, diet per speech. On Pepcid for GI prophylaxis ID: Continue abx (on IV vanco, Levaquin). ID is following. Azithromycin as been discontinued. Recently on cefepime and ciprofloxacin Monitor for signs of infections( fever and WBC) check sputum cx, UA with cx if indicated. [facility] pending. Recent vancomycin and IV 14 days. Podiatry for osteomyelitis consulted Endo:SSI with Accu-Chek's for glycemic control. TSH: 3.35, FT4: 2.10 Heme: Monitor CBC. GI prophylaxis with Pepcid and DVT prophylaxis with SCDs. Heparin Sq Level II follow-up. Patient is stable from critical care medicine standpoint. Dr. Shin to assume care medially/actively following currently. Oni Gupta MD Feb 18, 2017 13:54
[2017-02-18] MEDS ORDERED: RESP: ALBUTEROL 2.5 MG/3 ML NEB (PRN) NEB (14:15)
--- NOTE | 2017-02-18 15:26 | HHI.PR ---
Subjective Remarks ALERT NO SOB Objective Vital Signs Date Time Temp Pulse Resp B/P (MAP) Pulse Ox O2 Delivery O2 Flow Rate FiO2 02/18/17 14:00 79 02/18/17 12:00 69 02/18/17 12:00 98.5 69 17 106/56 (73) 97 02/18/17 10:00 82 02/18/17 08:52 96 Nasal Cannula 4.00 02/18/17 08:00 80 02/18/17 08:00 98.2 80 26 127/61 (83) 96 02/18/17 07:00 96 Nasal Cannula 3.00 02/18/17 06:00 82 02/18/17 04:00 98.5 78 24 119/63 (81) 97 02/18/17 04:00 78 02/18/17 02:00 74 02/18/17 00:00 98.5 71 20 134/65 (88) 96 02/18/17 00:00 71 02/17/17 22:00 74 02/17/17 20:00 91 02/17/17 20:00 98.3 91 24 123/59 (80) 99 02/17/17 19:00 Nasal Cannula 4.00 02/17/17 18:00 81 02/17/17 16:00 92 02/17/17 16:00 98.4 87 16 137/73 (94) 94 I/O 02/17/17 02/17/17 02/17/17 02/18/17 02/18/17 02/18/17 07:00 15:00 23:00 07:00 15:00 23:00 Intake Total 400 ml 614 ml 250 ml Output Total 0 ml 1200 ml 0 ml Balance 0 ml 400 ml -1200 ml 614 ml 250 ml Intake Oral 100 ml IV Total 400 ml 514 ml 250 ml Output Urine Total 1200 ml Stool Total 0 ml 0 ml # Voids 2 2 2 Result Diagram: 02/18/1760102/18/17601 Objective Remarks GENERAL: SKIN: Warm and dry. HEAD: Atraumatic. Normocephalic. EYES: Pupils equal and round. No scleral icterus. No injection or drainage. ENT: No nasal bleeding or discharge. Mucous membranes pink and moist. NECK: Trachea midline. No JVD. CARDIOVASCULAR: Regular rate and rhythm. RESPIRATORY: No accessory muscle use. Clear to auscultation. Breath sounds equal bilaterally. GASTROINTESTINAL: Abdomen soft, non-tender, nondistended. Hepatic and splenic margins not palpable. MUSCULOSKELETAL: Extremities without clubbing, cyanosis, or edema. No obvious deformities. NEUROLOGICAL: Awake and alert. No obvious cranial nerve deficits. Motor grossly within normal limits. Five out of 5 muscle strength in the arms and legs. Normal speech. PSYCHIATRIC: Appropriate mood and affect; insight and judgment normal. Assessment and Plan Assessment and Plan RESPIRATORY FAILURE COPD DEMENTIA PLAN O2 NEEDED BRONCHODILATOR THERAPY increase activity Devon Osorio MD Feb 18, 2017 15:26
[2017-02-18] MEDS: RESP: ALBUTEROL 2.5 MG/IPRATROPIUM 0.5 MG NEB (SCH) NEB ×2 (16:44→21:46)
[2017-02-18] MEDS ORDERED: PHARMACY ORDERED LAB ONE (17:45)
[2017-02-18] MEDS: ATORVASTATIN 40 MG TAB PO SCH (20:52)
--- NOTE | 2017-02-18 22:31 | PD.POD ---
Subjective Podiatric Problems R foot ulceration Objective Vital Signs Vital Signs Date Time Temp Pulse Resp B/P (MAP) Pulse Ox O2 Delivery O2 Flow Rate FiO2 02/18/17 21:46 98 Nasal Cannula 2.00 02/18/17 20:00 97.9 72 14 110/57 (74) 99 02/18/17 20:00 72 02/18/17 19:55 99 Nasal Cannula 4.00 02/18/17 19:00 98 Nasal Cannula 3.00 02/18/17 18:00 82 02/18/17 16:00 76 02/18/17 16:00 98.0 76 21 113/56 (75) 98 02/18/17 14:00 79 02/18/17 12:00 69 02/18/17 12:00 98.5 69 17 106/56 (73) 97 02/18/17 10:00 82 02/18/17 08:52 96 Nasal Cannula 4.00 02/18/17 08:00 80 02/18/17 08:00 98.2 80 26 127/61 (83) 96 02/18/17 07:00 96 Nasal Cannula 3.00 02/18/17 06:00 82 02/18/17 04:00 98.5 78 24 119/63 (81) 97 02/18/17 04:00 78 02/18/17 02:00 74 02/18/17 00:00 98.5 71 20 134/65 (88) 96 02/18/17 00:00 71 Coded Allergies: No Known Allergies (Unverified , 02/12/17) Physical Exam Remarks R plantar midfoot ulceration approx 2cm x 1.8cm x 0.2cm depth with hyperkeratotic rim. Bleeds readily upon debridement. No purulence noted. No probe to bone noted. Assessment & Plan A/P R foot ulcer Bedside excisional debridement performed of R foot ulcer with #15 blade of all hyperkeratotic and fibrotic tissue down to healthy bleeding subcutaneous tissue. Dressing with nonadherent gauze, 4x4, cling, tape applied. Daily dressing changes per nursing with xeroform, 4x4, cling, tape No further treatment planned. Continue local wound care. Podiatry signing off- reconsult if new issues arise Ordered bilateral surgical shoes for patient. Eric Nagel DPM Feb 18, 2017 22:31
[2017-02-19] VITALS (19 sets, daily range): BP systolic 107–155; BP diastolic 56–73; PULSE 68–90; RESP 12–26; TEMP 97–98.6; O2SAT 92–98
[2017-02-19] MEDS: methylPREDNISolone SOD SUCC 40 MG/1 ML VIAL IV PUSH SCH ×4 (03:31→20:28)
[2017-02-19] MEDS: CHLORHEXIDINE GLUCONATE 2 % 1 PACK (2 CLOTHS) TOP SCH (03:31)
[2017-02-19] MEDS: RESP: ALBUTEROL 2.5 MG/IPRATROPIUM 0.5 MG NEB (SCH) NEB ×4 (04:05→21:47)
[2017-02-19] MEDS: hydrALAZINE HCL 100 MG TAB PO SCH ×3 (05:13→20:28)
[2017-02-19 06:27] LABS: BASOPHIL % 0.1 % (0.0-2.0); EOSINOPHIL % 0.1 % (0.0-4.0); HEMATOCRIT 30.1 % (35.0-46.0); HEMO FLAGS DIFF FINAL; LYMPH % 9.4 % (9.0-44.0); LYMPHOCYTE # 0.5 TH/MM3 (1.0-4.8); MEAN CELL VOLUME 85.5 FL (80.0-100.0); MEAN CORPUSCULAR HGB CONC 31.5 % (32.0-36.0); MONO % 6.4 % (0.0-8.0); PLATELET COUNT 231 TH/MM3 (150-450); RED BLOOD COUNT 3.52 MIL/MM3 (4.00-5.30); RED CELL DISTRIBUTION WIDTH 17.8 % (11.6-17.2); WHITE BLOOD COUNT 4.8 TH/MM3 (4.0-11.0)
[2017-02-19 07:00] LABS: ALKALINE PHOSPHATASE 92 U/L (45-117); ALT (GPT) 19 U/L (10-53); ANION GAP 5 MEQ/L (5-15); AST (GOT) 4 U/L (15-37); BICARBONATE 33.2 MEQ/L (21.0-32.0); BLOOD UREA NITROGEN 77 MG/DL (7-18); CHLORIDE 97 MEQ/L (98-107); GLOMERULAR FILTRATION RATE 31 ML/MIN (>89); MAGNESIUM 2.8 MG/DL (1.5-2.5); POTASSIUM 4.7 MEQ/L (3.5-5.1); SODIUM (NA) 135 MEQ/L (136-145); TOTAL BILIRUBIN ADULT 0.4 MG/DL (0.2-1.0)
--- NOTE | 2017-02-19 07:58 | HHI.PR ---
Review/Management Diagnosis/Plan: (1) Encephalopathy, metabolic ICD Codes: G93.41 - Metabolic encephalopathy Status: Acute Plan: likely related to hypoxia/hypercapnia ?chf exacerbation hx of underlying dementia? eeg/mri brain negative recs mental status appropriate doing well ok for floor from neuro will follow peripherally (2) Respiratory distress ICD Codes: R06.03 - Acute respiratory distress Status: Acute Plan: resolved (3) CHF (congestive heart failure) ICD Codes: I50.9 - Heart failure, unspecified Status: Acute (4) DEMENTIA IN OTH DISEASES CLASSD ELSWHR W/O BEHAVRL DISTURB ICD Codes: F02.80 - DEMENTIA IN OTH DISEASES CLASSD ELSWHR W/O BEHAVRL DISTURB Status: Chronic Subjective Subjective Comments No acute events reported, "i'm hungry" No headache No chest pain No dyspnea Active Medications Current Medications Medications (Trade) Dose Ordered Sig/Fátima Route Start Time Stop Time Status Last Admin (Norvasc) 5 mg DAILY PO 02/17/17 09:00 02/18/17 08:10 (Aspirin Chew) 81 mg DAILY CHEW 02/17/17 09:00 02/18/17 08:10 (Plavix) 75 mg DAILY PO 02/17/17 09:00 02/18/17 08:11 (Lopressor) 50 mg Q12HR PO 02/16/17 21:00 02/18/17 20:52 (Apresoline) 100 mg Q8HR PO 02/16/17 22:00 02/19/17 05:13 Pharmacy Profile Note 0 ml @ 0 mls/hr UNSCH OTHER 02/16/17 17:15 Vancomycin HCl 1400 mg/Sodium Chloride 514 ml @ 250 mls/hr Q24H IV 02/17/17 18:00 Future Hold 02/17/17 18:00 (SoluMEDROL INJ) 40 mg Q6H IV PUSH 02/16/17 20:00 02/19/17 03:31 (Mucinex Er) 600 mg BID PO 02/16/17 21:00 02/18/17 20:51 (Zoloft) 25 mg DAILY PO 02/17/17 09:00 02/18/17 08:11 (SEROquel) 12.5 mg BID@09,12 PO 02/17/17 09:00 02/18/17 12:38 (Lipitor) 40 mg HS PO 02/16/17 21:00 02/18/17 20:52 (Zithromax) 500 mg DAILY PO 02/17/17 09:00 Future Hold (NovoLOG SUPPLEMENTAL SCALE) 1 ACHS SLIDING SCALE SQ 02/16/17 21:00 02/18/17 21:20 Miscellaneous Information 1 Q361D XX 02/16/17 17:45 (Chlorhexidine 2% Cloth) 3 pack Taper DAILY@04 TOP 02/17/17 04:00 02/13/18 03:59 02/19/17 03:31 (Chlorhexidine 2% Cloth) 3 pack UNSCH PRN TOP 02/16/17 17:45 (D50w (Vial) Inj) 50 ml UNSCH PRN IV PUSH 02/16/17 17:45 (Glucagon Inj) 1 mg UNSCH PRN OTHER 02/16/17 17:45 (Pill Splitter) 1 ea UNSCH PRN OTHER 02/16/17 19:30 (Apresoline Inj) 10 mg Q6H PRN IV PUSH 02/16/17 20:15 Levofloxacin/ Dextrose 150 ml @ 100 mls/hr Q48H IV 02/17/17 09:00 02/17/17 09:02 (Heparin Inj) 5,000 units Q12HR SQ 02/17/17 21:00 02/18/17 20:52 (Neurontin) 600 mg BID PO 02/17/17 21:00 02/18/17 20:53 (Pneumovax-23 Inj) 25 mcg ONCE ONCE IM 02/19/17 10:00 02/19/17 10:01 (Flu (Quadrivalent) Vaccine Inj) 0.5 ml ONCE ONCE IM 02/19/17 10:00 02/19/17 10:01 (Duoneb Neb) 1 ampule Q6HR NEB NEB 02/18/17 16:00 02/19/17 04:05 (Albuterol Neb) 2.5 mg Q2HR NEB PRN NEB 02/18/17 14:15 Allergies Allergies Coded Allergies No Known Allergies (Habjdhypyp78/10/17) Review of Systems All other ROS: ROS reviewed as documented in chart Exam I&O / VS Vital Signs Date Time Temp Pulse Resp B/P (MAP) Pulse Ox O2 Delivery O2 Flow Rate FiO2 02/19/17 06:00 79 02/19/17 04:00 98.3 74 22 155/73 (100) 97 02/19/17 04:00 74 02/19/17 02:00 68 02/19/17 00:00 71 02/19/17 00:00 97.9 71 12 109/56 (73) 98 02/18/17 22:00 78 02/18/17 21:46 98 Nasal Cannula 2.00 02/18/17 20:00 97.9 72 14 110/57 (74) 99 02/18/17 20:00 72 02/18/17 19:55 99 Nasal Cannula 4.00 02/18/17 19:00 98 Nasal Cannula 3.00 02/18/17 18:00 82 02/18/17 16:00 76 02/18/17 16:00 98.0 76 21 113/56 (75) 98 02/18/17 14:00 79 02/18/17 12:00 69 02/18/17 12:00 98.5 69 17 106/56 (73) 97 02/18/17 10:00 82 02/18/17 08:52 96 Nasal Cannula 4.00 02/18/17 08:00 80 02/18/17 08:00 98.2 80 26 127/61 (83) 96 General: Mild distress Neurologic: Alert Psychiatric: Cooperative Exam Comments alert, looks well, ox 2, converses in macedonian, eomi, follows, ou 3-2mm, burks to gravity, le with dystrophic changes, planterflexor, no clonus Objective Micro and Labs Laboratory Tests Test 02/18/17 18:20 02/19/17 04:48 Vancomycin Level Trough 27.8 White Blood Count 4.8 Red Blood Count 3.52 Hemoglobin 9.5 Hematocrit 30.1 Mean Corpuscular Volume 85.5 Mean Corpuscular Hemoglobin 27.0 Mean Corpuscular Hemoglobin Concent 31.5 Red Cell Distribution Width 17.8 Platelet Count 231 Mean Platelet Volume 7.5 Neutrophils (%) (Auto) 84.0 Lymphocytes (%) (Auto) 9.4 Monocytes (%) (Auto) 6.4 Eosinophils (%) (Auto) 0.1 Basophils (%) (Auto) 0.1 Neutrophils # (Auto) 4.0 Lymphocytes # (Auto) 0.5 Monocytes # (Auto) 0.3 Eosinophils # (Auto) 0.0 Basophils # (Auto) 0.0 CBC Comment DIFF FINAL Differential Comment Blood Urea Nitrogen 77 Creatinine 1.64 Random Glucose 239 Total Protein 8.1 Albumin 2.7 Calcium Level 8.3 Phosphorus Level 4.7 Magnesium Level 2.8 Alkaline Phosphatase 92 Aspartate Amino Transf (AST/SGOT) 4 Alanine Aminotransferase (ALT/SGPT) 19 Total Bilirubin 0.4 Sodium Level 135 Potassium Level 4.7 Chloride Level 97 Carbon Dioxide Level 33.2 Anion Gap 5 Estimat Glomerular Filtration Rate 31 Random Vancomycin Level 24.7 Problem Qualifiers (1) CHF (congestive heart failure): Darien Rice MD Feb 19, 2017 07:58
[2017-02-19] MEDS: LEVOFLOXACIN 750 MG PREMIX INJ 150 ML IV SCH (08:02)
[2017-02-19] MEDS: GABAPENTIN 300 MG CAP PO SCH ×2 (08:03→20:28)
[2017-02-19] MEDS: SERTRALINE HCL 50 MG TAB PO SCH (08:03)
[2017-02-19] MEDS: ASPIRIN 81 MG CHEW TAB CHEW SCH (08:04)
[2017-02-19] MEDS: CLOPIDOGREL 75 MG TAB PO SCH (08:04)
[2017-02-19] MEDS: QUEtiapine FUMARATE 25 MG TAB PO SCH ×2 (08:04→12:21)
[2017-02-19] MEDS: amLODIPine BESYLATE 5 MG TAB PO SCH (08:04)
[2017-02-19] MEDS: METOPROLOL TARTRATE 50 MG TAB PO SCH ×2 (08:04→20:28)
[2017-02-19] MEDS: INSULIN ASPART SUPPLEMENTAL SCALE SQ SCH ×4 (08:05→20:29)
[2017-02-19] MEDS: HEPARIN SODIUM - SQ 10,000 UNITS/ML VIAL SQ SCH ×2 (08:06→20:29)
--- NOTE | 2017-02-19 08:41 | HHI.PR ---
Subjective Remarks ALERT NO SOB Objective Vital Signs Date Time Temp Pulse Resp B/P (MAP) Pulse Ox O2 Delivery O2 Flow Rate FiO2 02/19/17 06:00 79 02/19/17 04:00 98.3 74 22 155/73 (100) 97 02/19/17 04:00 74 02/19/17 02:00 68 02/19/17 00:00 71 02/19/17 00:00 97.9 71 12 109/56 (73) 98 02/18/17 22:00 78 02/18/17 21:46 98 Nasal Cannula 2.00 02/18/17 20:00 97.9 72 14 110/57 (74) 99 02/18/17 20:00 72 02/18/17 19:55 99 Nasal Cannula 4.00 02/18/17 19:00 98 Nasal Cannula 3.00 02/18/17 18:00 82 02/18/17 16:00 76 02/18/17 16:00 98.0 76 21 113/56 (75) 98 02/18/17 14:00 79 02/18/17 12:00 69 02/18/17 12:00 98.5 69 17 106/56 (73) 97 02/18/17 10:00 82 02/18/17 08:52 96 Nasal Cannula 4.00 I/O 02/18/17 02/18/17 02/18/17 02/19/17 02/19/17 02/19/17 07:00 15:00 23:00 07:00 15:00 23:00 Intake Total 614 ml 250 ml 500 ml 200 ml Output Total 0 ml Balance 614 ml 250 ml 500 ml 200 ml Intake Oral 100 ml 500 ml 200 ml IV Total 514 ml 250 ml Stool Total 0 ml # Voids 2 1 2 # Bowel Movements 0 1 Result Diagram: 02/19/178 02/19/17447 Objective Remarks GENERAL: SKIN: Warm and dry. HEAD: Atraumatic. Normocephalic. EYES: Pupils equal and round. No scleral icterus. No injection or drainage. ENT: No nasal bleeding or discharge. Mucous membranes pink and moist. NECK: Trachea midline. No JVD. CARDIOVASCULAR: Regular rate and rhythm. RESPIRATORY: No accessory muscle use. Clear to auscultation. Breath sounds equal bilaterally. GASTROINTESTINAL: Abdomen soft, non-tender, nondistended. Hepatic and splenic margins not palpable. MUSCULOSKELETAL: Extremities without clubbing, cyanosis, or edema. No obvious deformities. NEUROLOGICAL: Awake and alert. No obvious cranial nerve deficits. Motor grossly within normal limits. Five out of 5 muscle strength in the arms and legs. Normal speech. PSYCHIATRIC: Appropriate mood and affect; insight and judgment normal. Assessment and Plan Assessment and Plan RESPIRATORY FAILURE COPD DEMENTIA PLAN O2 NEEDED BRONCHODILATOR THERAPY increase activity Devon Osorio MD Feb 19, 2017 08:41
[2017-02-19] MEDS: guaiFENesin E.R. 600 MG TAB PO SCH ×2 (09:14→20:28)
[2017-02-19] MEDS ORDERED: PNEUMOCOCCAL POLYVALENT INJ 25 MCG/0.5 ML SYR IM ONE (10:00)
[2017-02-19] MEDS ORDERED: INFLUENZA VIRUS VACCINE (QUADRIVALENT) 0.5 ML SYR IM ONE (10:00)
--- NOTE | 2017-02-19 11:01 | HHI.PYPN ---
Subjective Remarks Patient was seen today for reevaluation, she is calm, cooperative in a good spirit, denies depressive symptoms, she says that she is happy, much better, motivated to be discharged back home, to continue her medication regimen, medical follow-ups, she is oriented 3, no fluctuation of consciousness or attention deficit. No agitation or aggressive behavior reported. Review of Systems Except as stated in HPI: all other systems reviewed are Neg Mental Status Examination Appearance: Appropriate Consciousness: Alert Orientation: x4 Motor Activity: Normal gait Speech: Unremarkable Language: Adequate Fund of Knowledge: Adequate Attention and Concentration: Adequate Memory: Unremarkable Mood: Appropriate Affect: Appropriate Thought Process & Associations: Intact Thought Content: Appropriate Hallucination Type: None Delusion Type: None Suicidal Ideation: No Suicidal Plan: No Suicidal Intention: No Homicidal Ideation: No Homicidal Plan: No Homicidal Intention: No Insight: Adequate Judgment: Adequate Results Labs Test 02/18/17 18:20 02/19/17 04:48 Vancomycin Level Trough 27.8 MCG/ML White Blood Count 4.8 TH/MM3 Red Blood Count 3.52 MIL/MM3 Hemoglobin 9.5 GM/DL Hematocrit 30.1 % Mean Corpuscular Volume 85.5 FL Mean Corpuscular Hemoglobin 27.0 PG Mean Corpuscular Hemoglobin Concent 31.5 % Red Cell Distribution Width 17.8 % Platelet Count 231 TH/MM3 Mean Platelet Volume 7.5 FL Neutrophils (%) (Auto) 84.0 % Lymphocytes (%) (Auto) 9.4 % Monocytes (%) (Auto) 6.4 % Eosinophils (%) (Auto) 0.1 % Basophils (%) (Auto) 0.1 % Neutrophils # (Auto) 4.0 TH/MM3 Lymphocytes # (Auto) 0.5 TH/MM3 Monocytes # (Auto) 0.3 TH/MM3 Eosinophils # (Auto) 0.0 TH/MM3 Basophils # (Auto) 0.0 TH/MM3 CBC Comment DIFF FINAL Differential Comment Blood Urea Nitrogen 77 MG/DL Creatinine 1.64 MG/DL Random Glucose 239 MG/DL Total Protein 8.1 GM/DL Albumin 2.7 GM/DL Calcium Level 8.3 MG/DL Phosphorus Level 4.7 MG/DL Magnesium Level 2.8 MG/DL Alkaline Phosphatase 92 U/L Aspartate Amino Transf (AST/SGOT) 4 U/L Alanine Aminotransferase (ALT/SGPT) 19 U/L Total Bilirubin 0.4 MG/DL Sodium Level 135 MEQ/L Potassium Level 4.7 MEQ/L Chloride Level 97 MEQ/L Carbon Dioxide Level 33.2 MEQ/L Anion Gap 5 MEQ/L Estimat Glomerular Filtration Rate 31 ML/MIN Random Vancomycin Level 24.7 COMMENT Vitals/IOs Vital Signs Date Time Temp Pulse Resp B/P (MAP) Pulse Ox O2 Delivery O2 Flow Rate FiO2 02/19/17 10:00 90 02/19/17 09:00 18 143/66 (91) 96 02/19/17 08:54 Nasal Cannula 3.00 02/19/17 08:00 97.0 02/17/17 07:00 40 Intake and Output 02/19/17 02/19/17 02/20/17 08:00 16:00 00:00 Intake Total 200 ml 150 ml Balance 200 ml 150 ml Assessment & Plan Problem List: (1) Unspecified psychosis ICD Codes: F29 - Unspecified psychosis not due to a substance or known physiological condition Assessment & Plan Estimated LOS: days Justification for Cont. Inpt. She does not meet criteria for involuntary psychiatric admission at this moment. The patient is psychiatric stable to continue medical treatment and be discharged back home. Cornelio Nelson MD Feb 19, 2017 11:01
--- NOTE | 2017-02-19 11:42 | HHI.PR ---
Subjective Remarks 66-year-old female brought in from SNF for evaluation of suicidal ideation. was admitted to MEDICAL PSYCHIATRY and now TRANSFERRED to ICU for RESPIRATORY DISTRESS AND COPD AND CHF after [facility] was called. PATIENT WAS noted to be hypoxic and hypercapnic. limited hx from pt. medical chart reviewed. 02-17 WAS ON BIPAP LAST NIGHT PASSED SWALLOW WITH SPEECH- MECHANICAL SOFT DIET DM FOR MRI OF HEAD AND FOOT TODAY HAD EEG- TODAY DW RN AND PT AND SPEECH AND CCM 02-18 TO HAVE DEBRIDEMENT OF RIGHT FOOT AT BEDSIDE BY PODIATRY DW RN AND PATIENT NO NEW COMPLAINTS 02-19 BREATHING MUCH BETTER ON LESS OXYGEN DW RN AND PT HAD RIGHT FOOT DEBRIDEMENT BY PODIATRY AT BEDSIDE STABLE TO MOVE OUT OF ICU CASE MANAGEMENT FOR SNF PT AND OT Objective Vitals Vital Signs Date Time Temp Pulse Resp B/P (MAP) Pulse Ox O2 Delivery O2 Flow Rate FiO2 02/19/17 10:00 90 02/19/17 09:00 86 18 143/66 (91) 96 02/19/17 08:54 94 Nasal Cannula 3.00 02/19/17 08:00 97.0 84 26 155/71 (99) 94 02/19/17 08:00 84 02/19/17 07:00 96 Nasal Cannula 3.00 02/19/17 06:00 79 02/19/17 04:00 98.3 74 22 155/73 (100) 97 02/19/17 04:00 74 02/19/17 02:00 68 02/19/17 00:00 71 02/19/17 00:00 97.9 71 12 109/56 (73) 98 02/18/17 22:00 78 02/18/17 21:46 98 Nasal Cannula 2.00 02/18/17 20:00 97.9 72 14 110/57 (74) 99 02/18/17 20:00 72 02/18/17 19:55 99 Nasal Cannula 4.00 02/18/17 19:00 98 Nasal Cannula 3.00 02/18/17 18:00 82 02/18/17 16:00 76 02/18/17 16:00 98.0 76 21 113/56 (75) 98 02/18/17 14:00 79 02/18/17 12:00 69 02/18/17 12:00 98.5 69 17 106/56 (73) 97 I/O 02/18/17 02/18/17 02/18/17 02/19/17 02/19/17 02/19/17 07:00 15:00 23:00 07:00 15:00 23:00 Intake Total 614 ml 250 ml 500 ml 200 ml 150 ml Output Total 0 ml Balance 614 ml 250 ml 500 ml 200 ml 150 ml Intake Oral 100 ml 500 ml 200 ml IV Total 514 ml 250 ml 150 ml Stool Total 0 ml # Voids 2 1 2 # Bowel Movements 0 1 Result Diagram: 02/19/17 0448 02/19/17 0448 Other Results Laboratory Tests Test 02/16/17 16:00 02/16/17 17:20 02/16/17 20:16 02/17/17 01:14 Nasal Screen MRSA (PCR) MRSA NOT DETECTED Ammonia 35 MCMOL/L B-Type Natriuretic Peptide 213 PG/ML Vitamin B12 Level 590 PG/ML Blood Gas Puncture Site RT RADIAL RT BRACHIAL Blood Gas Patient Temperature 98.6 98.6 Blood Gas HCO3 35 mmol/L 33 mmol/L Blood Gas Base Excess 8.5 mmol/L 7.6 mmol/L Blood Gas Oxygen Saturation 97 % 96 % Arterial Blood pH 7.32 7.36 Arterial Blood Partial Pressure CO2 69 mmHg 60 mmHg Arterial Blood Partial Pressure O2 166 mmHg 117 mmHg Arterial Blood Oxygen Content 11.8 Vol % 12.6 Vol % Arterial Blood Carboxyhemoglobin 1.3 % 1.4 % Arterial Blood Methemoglobin 1.3 % 1.2 % Blood Gas Hemoglobin 8.4 G/DL 9.2 G/DL Oxygen Delivery Device PRB BIPAP Blood Gas Liter Flow 13 L/M Blood Gas Ventilator Setting 10/5 BUR 8 40% Blood Gas Inspired Oxygen 40 % Test 02/17/17 05:10 02/17/17 15:45 02/18/17 06:02 02/18/17 18:20 White Blood Count 5.5 TH/MM3 6.6 TH/MM3 Red Blood Count 3.42 MIL/MM3 3.19 MIL/MM3 Hemoglobin 9.2 GM/DL 8.6 GM/DL Hematocrit 29.4 % 27.3 % Mean Corpuscular Volume 85.9 FL 85.5 FL Mean Corpuscular Hemoglobin 26.8 PG 27.0 PG Mean Corpuscular Hemoglobin Concent 31.2 % 31.6 % Red Cell Distribution Width 18.4 % 18.3 % Platelet Count 174 TH/MM3 210 TH/MM3 Mean Platelet Volume 8.1 FL 7.8 FL Neutrophils (%) (Auto) 90.1 % 90.2 % Lymphocytes (%) (Auto) 7.5 % 7.3 % Monocytes (%) (Auto) 1.7 % 2.2 % Eosinophils (%) (Auto) 0.2 % 0.0 % Basophils (%) (Auto) 0.5 % 0.3 % Neutrophils # (Auto) 5.0 TH/MM3 5.9 TH/MM3 Lymphocytes # (Auto) 0.4 TH/MM3 0.5 TH/MM3 Monocytes # (Auto) 0.1 TH/MM3 0.1 TH/MM3 Eosinophils # (Auto) 0.0 TH/MM3 0.0 TH/MM3 Basophils # (Auto) 0.0 TH/MM3 0.0 TH/MM3 CBC Comment DIFF FINAL AUTO DIFF Differential Comment AUTO DIFF CONFIRMED Blood Urea Nitrogen 48 MG/DL 60 MG/DL Creatinine 1.28 MG/DL 1.41 MG/DL Random Glucose 140 MG/DL 226 MG/DL Total Protein 8.0 GM/DL 7.5 GM/DL Albumin 2.5 GM/DL 2.3 GM/DL Calcium Level 8.7 MG/DL 8.2 MG/DL Phosphorus Level 5.5 MG/DL 5.1 MG/DL Magnesium Level 2.5 MG/DL 2.6 MG/DL Alkaline Phosphatase 113 U/L 91 U/L Aspartate Amino Transf (AST/SGOT) 18 U/L 17 U/L Alanine Aminotransferase (ALT/SGPT) 24 U/L 23 U/L Total Bilirubin 0.6 MG/DL 0.4 MG/DL Sodium Level 137 MEQ/L 136 MEQ/L Potassium Level 5.0 MEQ/L 5.0 MEQ/L Chloride Level 98 MEQ/L 99 MEQ/L Carbon Dioxide Level 31.0 MEQ/L 29.5 MEQ/L Anion Gap 8 MEQ/L 8 MEQ/L Estimat Glomerular Filtration Rate 42 ML/MIN 37 ML/MIN Hemoglobin A1c 7.5 % Free Thyroxine 2.10 NG/DL Thyroid Stimulating Hormone 3rd Gen 3.350 uIU/ML Urine Color YELLOW Urine Turbidity HAZY Urine pH 5.0 Urine Specific [place] 1.014 Urine Protein 30 mg/dL Urine Glucose (UA) NEG mg/dL Urine Ketones NEG mg/dL Urine Occult Blood NEG Urine Nitrite NEG Urine Bilirubin NEG Urine Urobilinogen LESS THAN 2.0 MG/DL Urine Leukocyte Esterase NEG Urine RBC 2 /hpf Urine WBC 2 /hpf Urine Squamous Epithelial Cells 1 /hpf Urine Amorphous Sediment RARE Urine Mucus FEW /lpf Microscopic Urinalysis Comment CATH-CULT NOT IND Platelet Estimate NORMAL Platelet Morphology Comment NORMAL Vancomycin Level Trough 27.8 MCG/ML Test 02/19/17 04:48 White Blood Count 4.8 TH/MM3 Red Blood Count 3.52 MIL/MM3 Hemoglobin 9.5 GM/DL Hematocrit 30.1 % Mean Corpuscular Volume 85.5 FL Mean Corpuscular Hemoglobin 27.0 PG Mean Corpuscular Hemoglobin Concent 31.5 % Red Cell Distribution Width 17.8 % Platelet Count 231 TH/MM3 Mean Platelet Volume 7.5 FL Neutrophils (%) (Auto) 84.0 % Lymphocytes (%) (Auto) 9.4 % Monocytes (%) (Auto) 6.4 % Eosinophils (%) (Auto) 0.1 % Basophils (%) (Auto) 0.1 % Neutrophils # (Auto) 4.0 TH/MM3 Lymphocytes # (Auto) 0.5 TH/MM3 Monocytes # (Auto) 0.3 TH/MM3 Eosinophils # (Auto) 0.0 TH/MM3 Basophils # (Auto) 0.0 TH/MM3 CBC Comment DIFF FINAL Differential Comment Blood Urea Nitrogen 77 MG/DL Creatinine 1.64 MG/DL Random Glucose 239 MG/DL Total Protein 8.1 GM/DL Albumin 2.7 GM/DL Calcium Level 8.3 MG/DL Phosphorus Level 4.7 MG/DL Magnesium Level 2.8 MG/DL Alkaline Phosphatase 92 U/L Aspartate Amino Transf (AST/SGOT) 4 U/L Alanine Aminotransferase (ALT/SGPT) 19 U/L Total Bilirubin 0.4 MG/DL Sodium Level 135 MEQ/L Potassium Level 4.7 MEQ/L Chloride Level 97 MEQ/L Carbon Dioxide Level 33.2 MEQ/L Anion Gap 5 MEQ/L Estimat Glomerular Filtration Rate 31 ML/MIN Random Vancomycin Level 24.7 COMMENT Imaging Last Impressions Chest X-Ray 02/18/17 0600 Signed Impressions: Service Date/Time: February 03:17 - CONCLUSION: Clips and wires suggests CABG. Bilateral perihilar vascular congestion. Avinash Brito MD Foot MRI 02/17/17 0000 Signed Impressions: Service Date/Time: Friday, February 17, 2017 11:58 - CONCLUSION: Ulcer plantar surface of the foot, lateral side with edema base of the fifth metatarsal consistent with osteoarthritis. This does involve the insertion of the peroneus brevis tendon on the base of the fifth metatarsal. Ag Del Toro MD FACR Brain MRI 02/17/17 0000 Signed Impressions: Service Date/Time: Friday, February 17, 2017 11:48 - CONCLUSION: 1. No findings to indicate acute cortical infarct are identified. 2. Scattered areas of increased T2 signal in the white matter most consistent with mild microvascular ischemic demyelinative change. 3. There is fluid within the mastoid air cells bilaterally. Fausto Del Toro MD Objective Remarks GENERAL: More awake and alert and oriented today more talkative and cooperative not lethargic SKIN: Warm and dry. Bilateral feet dressed RIGHT FOOT DRESSED HEAD: Atraumatic. Normocephalic. EYES: Pupils equal and round. No scleral icterus. No injection or drainage. Extraocular muscles intact ENT: No nasal bleeding or discharge. Mucous membranes pink and moist. Tongue is Midline NECK: Trachea midline. No JVD. Neck is supple CARDIOVASCULAR: Regular rate and rhythm. S1-S2 no S3-S4 no heave or thrill or rub or gallop RESPIRATORY: No accessory muscle use. Clear to auscultation. Breath sounds equal bilaterally. GASTROINTESTINAL: Abdomen soft, non-tender, nondistended. Hepatic and splenic margins not palpable. MUSCULOSKELETAL: Extremities without clubbing, cyanosis, or edema. No obvious deformities. NEUROLOGICAL: Awake and alert. No obvious cranial nerve deficits. Motor grossly within normal limits. 4 out of 5 muscle strength in the arms and legs. Normal speech. PSYCHIATRIC: IAppropriate mood and affect; insight and judgment normal. Procedures R plantar midfoot ulceration approx 2cm x 1.8cm x 0.2cm depth with hyperkeratotic rim. Bleeds readily upon debridement. No purulence noted. No probe to bone noted. Assessment & Plan A/P R foot ulcer Bedside excisional debridement performed of R foot ulcer with #15 blade of all hyperkeratotic and fibrotic tissue down to healthy bleeding subcutaneous tissue. Dressing with nonadherent gauze, 4x4, cling, tape applied. Daily dressing changes per nursing with xeroform, 4x4, cling, tape No further treatment planned. Continue local wound care. Podiatry signing off- reconsult if new issues arise Ordered bilateral surgical shoes for patient. Eric Nagel DPM Medications and IVs Current Medications Amlodipine Besylate (Norvasc) 5 mg DAILY PO Last administered on 02/19/17 08: 04; Start 02/17/17 at 09:00 Aspirin (Aspirin Chew) 81 mg DAILY CHEW Last administered on 02/19/17 08:04; Start 02/17/17 at 09:00 Clopidogrel Bisulfate (Plavix) 75 mg DAILY PO Last administered on 02/19/17 08:04; Start 02/17/17 at 09:00 Dextrose (D50w (Vial) Inj) 50 ml UNSCH PRN IV PUSH HYPOGLYCEMIA-SEE COMMENTS; Start 02/16/17 at 17:15; Stop 02/16/17 at 19:19; Status DC Glucagon (Glucagon Inj) 1 mg UNSCH PRN OTHER HYPOGLYCEMIA-SEE COMMENTS; Start 02/16/17 at 17:15; Stop 02/16/17 at 19:21; Status DC Insulin Human Regular (NovoLIN R SUPPLEMENTAL SCALE) 1 Q4H SQ ; Start 02/16/17 at 18:00; Stop 02/16/17 at 19:23; Status DC Metoprolol Tartrate (Lopressor) 50 mg Q12HR PO Last administered on 02/19/17 08:04; Start 02/16/17 at 21:00 Hydralazine HCl (Apresoline) 100 mg Q8HR PO Last administered on 02/19/17 05: 13; Start 02/16/17 at 22:00 Pharmacy Profile Note 0 ml @ 0 mls/hr UNSCH OTHER ; Start 02/16/17 at 17:15 Vancomycin HCl 1750 mg/Sodium Chloride 517.5 ml @ 250 mls/hr NOW ONCE IV Last administered on 02/16/17 18:10; Start 02/16/17 at 17:45; Stop 02/16/17 at 19:49; Status DC Vancomycin HCl 1400 mg/Sodium Chloride 514 ml @ 250 mls/hr Q24H IV Last administered on 02/17/17 18:00; Start 02/17/17 at 18:00; Status Future Hold Methylprednisolone Sodium Succinate (SoluMEDROL INJ) 40 mg Q6H IV PUSH Last administered on 02/19/17 08:06; Start 02/16/17 at 20:00 Guaifenesin (Mucinex Er) 600 mg BID PO Last administered on 02/19/17 09:14; Start 02/16/17 at 21:00 Albuterol/ Ipratropium (Duoneb Neb) 1 ampule Q4HR NEB PRN NEB SHORTNESS OF BREATH; Start 02/16/17 at 17:45; Stop 02/18/17 at 14:01; Status DC Sertraline HCl (Zoloft) 25 mg DAILY PO Last administered on 02/19/17 08:03; Start 02/17/17 at 09:00 Quetiapine Fumarate (SEROquel) 12.5 mg BID@09,12 PO Last administered on 08:04; Start 02/17/17 at 09:00 Atorvastatin Calcium (Lipitor) 40 mg HS PO Last administered on 02/18/17 20: 52; Start 02/16/17 at 21:00 Gabapentin (Neurontin) 600 mg TID PO ; Start 02/16/17 at 18:00; Stop 02/17/17 at 14:50; Status DC Levofloxacin (Levaquin) 750 mg Q48H PO ; Start 02/17/17 at 09:00; Stop at 09:00; Status DC Azithromycin (Zithromax) 500 mg DAILY PO ; Start 02/17/17 at 09:00; Status Future Hold Insulin Aspart (NovoLOG SUPPLEMENTAL SCALE) 1 ACHS SLIDING SCALE SQ Last administered on 02/19/17 08:05; Start 02/16/17 at 21:00 Miscellaneous Information 1 Q361D XX ; Start 02/16/17 at 17:45 Chlorhexidine Gluconate (Chlorhexidine 2% Cloth) 3 pack Taper DAILY@04 TOP Last administered on 02/19/17 03:31; Start 02/17/17 at 04:00; Stop 02/13/18 at 03:59 Chlorhexidine Gluconate (Chlorhexidine 2% Cloth) 3 pack UNSCH PRN TOP HYGIENIC CARE; Start 02/16/17 at 17:45 Dextrose (D50w (Vial) Inj) 50 ml UNSCH PRN IV PUSH HYPOGLYCEMIA-SEE COMMENTS; Start 02/16/17 at 17:45 Glucagon (Glucagon Inj) 1 mg UNSCH PRN OTHER HYPOGLYCEMIA-SEE COMMENTS; Start 02/16/17 at 17:45 Miscellaneous (Pill Splitter) 1 ea UNSCH PRN OTHER SEE LABEL COMMENTS; Start 02/16/17 at 19:30 Hydralazine HCl (Apresoline Inj) 10 mg Q6H PRN IV PUSH SEE LABEL COMMENTS; Start 02/16/17 at 20:15 Levofloxacin/ Dextrose 150 ml @ 100 mls/hr Q48H IV Last administered on 08:02; Start 02/17/17 at 09:00 Azithromycin 500 mg/Sodium Chloride 250 ml @ 250 mls/hr Q24H IV Last administered on 02/18/17 08:10; Start 02/17/17 at 09:00; Stop 02/18/17 at 12 :28; Status DC Heparin Sodium (Porcine) (Heparin Inj) 5,000 units Q12HR SQ Last administered on 02/19/17 08:06; Start 02/17/17 at 21:00 Gabapentin (Neurontin) 600 mg BID PO Last administered on 02/19/17 08:03; Start 02/17/17 at 21:00 Chlorhexidine Gluconate (Hibiclens 4% Top Soln) 1 applic ONCE ONCE TOPICAL ; Start 02/17/17 at 18:15; Stop 02/17/17 at 18:17; Status DC Pneumococcal Polyvalent Vaccine (Pneumovax-23 Inj) 25 mcg ONCE ONCE IM Last administered on 02/19/17 09:15; Start 02/19/17 at 10:00; Stop 02/19/17 at 10 :01; Status DC Influenza Virus Vaccine (Flu (Quadrivalent) Vaccine Inj) 0.5 ml ONCE ONCE IM Last administered on 02/19/17 09:18; Start 02/19/17 at 10:00; Stop 02/19/17 at 10:01; Status DC Miscellaneous Information SPECIFIC LAB TO BE DRAWN:VANCOMYCIN TROUGH DATE TO... ONCE ONCE .XX ; Start 02/18/17 at 17:45; Stop 02/18/17 at 17:46; Status DC Albuterol/ Ipratropium (Duoneb Neb) 1 ampule Q6HR NEB NEB Last administered on 02/19/17 08:53; Start 02/18/17 at 16:00 Albuterol Sulfate (Albuterol Neb) 2.5 mg Q2HR NEB PRN NEB dyspnea; Start 02/18 at 14:15 A/P Problem List: (1) Unspecified psychosis ICD Code: F29 - Unspecified psychosis not due to a substance or known physiological condition (2) DEMENTIA IN OTH DISEASES CLASSD ELSWHR W/O BEHAVRL DISTURB ICD Code: F02.80 - DEMENTIA IN OTH DISEASES CLASSD ELSWHR W/O BEHAVRL DISTURB Status: Chronic (3) Encephalopathy, metabolic ICD Code: G93.41 - Metabolic encephalopathy Status: Acute (4) CHF (congestive heart failure) ICD Code: I50.9 - Heart failure, unspecified Status: Acute (5) Respiratory distress ICD Code: R06.03 - Acute respiratory distress Status: Acute (6) Hypoxia ICD Code: R09.02 - Hypoxemia Assessment and Plan TRANSFERRED TO ICU AT REQUEST OF PSYCHIATRY 02-16 STARTING THIS MORNING PATIENT STARTED TO DECOMPENSATE 02-16 //Atypical pneumonia. //Hypoxic respiratory failure. Pulse oximetry 82 on room air on admission. On 4 L now //Possible CHF exacerbation WILL INCREASE LASIX TO 40MG IV DAILY -With productive cough -CT pulmonary angiogram with mediastinal adenopathy, bilateral pulmonary infiltrates. Duo Nebs, Azithromycin.LEVAQUIN. VANCO Continue diet with 1800 mL fluid restriction. WILL GET AM LABS HYPOXIA- MAY NEED STEROIDS AND NEB TREATMENT --Slow improvement Less hypoxic only on 4 L now //Hypertension. //CAD status post CABG 3 //history of CHF. Blood pressure acceptable. Continue home medications. Continue aspirin and Plavix. Continue to monitor. = BNP 284 on admission. Echocardiogram pending. Continue fluid restrictions. DIURESE //Diabetes mellitus type 2. -Blood sugars elevated. Insulin sliding scale added. Continue diabetic diet. continue Levemir.. Past swallow eval will continue on diabetic mechanical soft diet //Diabetic neuropathy. Due to renal sufficiency, will decrease gabapentin dose. Continue to monitor. //Hyperlipidemia. Continue home medications. //Bilateral feet with diabetic ulcers. Right worse than left. Patient is to be continued on Cipro and daptomycin until 02/19. Requesting outside records, still pending. -ESR 76. =Infectious disease consult at. Continue on vancomycin as per infectious disease. Appreciate assistance = Podiatry consulted follow-up recommendations. PODIATRY TO DO SURGERY AT BEDSIDE ON RIGHT LE WOUND 11-16 //Anemia. Hemoglobin 8.9. Uncertain chronicity. No signs of bleeding. Reorder labs. //Renal insufficiency. Creatinine 1.18. On admission. GFR 49 on admission. Uncertain baseline. = Creatinine 0.97. Outside records still pending. CONTINUE SHALONDA VELAZQUEZ LEVRONALDO CHANGE LASIX TO 40MG PO DAILY AM LAB CONSULT PT AND OT FOR LEFT UE WEAKNESS INCENTIVE SPIROMETRY MUCH IMPROVED TRANSFER OUT OF ICU CASE MANAGEMENT FOR SNF Discharge Planning Pending infectious disease clearance and pulmonary clearance Problem Qualifiers (1) CHF (congestive heart failure): Ag Shin DO Feb 19, 2017 11:42
--- NOTE | 2017-02-19 14:44 | HHI.IDPN ---
Subjective Subjective Remarks The patient is a 66-year-old female, who I saw in the psychiatric unit last February 15, for evaluation of her right foot infection. She was initially admitted in the psych unit for suicidal ideation. Patient was getting IV antibiotics in the [facility]ci and she was on IV Vanco was started February 11, and the plan was for her to get a two-week course of IV antibiotic. Of note is that the patient was on antibiotic, getting IV Cubicin and Cipro in the fci, which look like it was started around February 05, however she was admitted at [facility] for evaluation of shortness of breath and altered mental status. There were very limited records for review, but during that admission she was found to have an ulcer on the right foot which apparently has been chronic. I did not have any information as to what kind of workup was done at that time. She had a CT of the chest during her hospitalization there and it did not show any pulmonary embolism, but showed pulmonary infiltrates suggestive of congestive heart failure. She was discharged February 11 to the [facility]ci on IV Vanco, with plans to finish 2 week course. Patient however apparently had suicidal ideation in the fci, so she was taken to [facility] and was admitted in the psychiatric unit. Podiatry also saw her in the psych unit, and she was getting some workup for her right foot to determine the extent of her infection. Patient apparently had more shortness of breath, and decreased level of consciousness, so she was transferred to the main hospital, in the ICU for workup and closer monitoring. Patient currently complains of shortness of breath and complaints of chest pain. She states she is bringing up some phlegm and his color yellow. She is currently on BiPAP. Neurology also is evaluating the patient, and she just finished having her EEG done. Patient is afebrile. Her chest x-ray showing vascular engorgement, and bilateral interstitial prominence. She has had a CTA while at the psych unit, and it looks like it's the same finding as what she had at [facility]. Her WBC is normal. Patient is currently on IV Vanco, Levaquin, and Zithromax. Infectious disease consultation is requested to continue with management of her right foot infection Notes reviewed Breathing feels better On nasal O2, sats good Good UO Temps ok Had bedside debridement of foot ulcer Antibiotics Vancomycin Levaquin Lines PIV Past Medical History Charcot joint right foot Chronic ulcer right foot CAD CHF Anemia Depression Diabetes mellitus Past Surgical History CABG Allergies: Coded Allergies: No Known Allergies (Unverified , 02/12/17) Objective . Vital Signs Date Time Temp Pulse Resp B/P (MAP) Pulse Ox O2 Delivery O2 Flow Rate FiO2 02/19/17 14:00 84 02/19/17 12:00 82 02/19/17 12:00 98.2 86 17 121/57 (78) 93 02/19/17 10:00 90 02/19/17 09:00 86 18 143/66 (91) 96 02/19/17 08:54 94 Nasal Cannula 3.00 02/19/17 08:00 97.0 84 26 155/71 (99) 94 02/19/17 08:00 84 02/19/17 07:00 96 Nasal Cannula 3.00 02/19/17 06:00 79 02/19/17 04:00 98.3 74 22 155/73 (100) 97 02/19/17 04:00 74 02/19/17 02:00 68 02/19/17 00:00 71 02/19/17 00:00 97.9 71 12 109/56 (73) 98 02/18/17 22:00 78 02/18/17 21:46 98 Nasal Cannula 2.00 02/18/17 20:00 97.9 72 14 110/57 (74) 99 02/18/17 20:00 72 02/18/17 19:55 99 Nasal Cannula 4.00 02/18/17 19:00 98 Nasal Cannula 3.00 02/18/17 18:00 82 02/18/17 16:00 76 02/18/17 16:00 98.0 76 21 113/56 (75) 98 02/19/17 02/19/17 02/20/17 15:00 23:00 07:00 Intake Total 150 ml Balance 150 ml IV Total 150 ml . Laboratory Tests Test 02/18/17 06:02 02/19/17 04:48 White Blood Count 6.6 TH/MM3 4.8 TH/MM3 Red Blood Count 3.19 MIL/MM3 3.52 MIL/MM3 Hemoglobin 8.6 GM/DL 9.5 GM/DL Hematocrit 27.3 % 30.1 % Mean Corpuscular Volume 85.5 FL 85.5 FL Mean Corpuscular Hemoglobin 27.0 PG 27.0 PG Mean Corpuscular Hemoglobin Concent 31.6 % 31.5 % Red Cell Distribution Width 18.3 % 17.8 % Platelet Count 210 TH/MM3 231 TH/MM3 Mean Platelet Volume 7.8 FL 7.5 FL Neutrophils (%) (Auto) 90.2 % 84.0 % Lymphocytes (%) (Auto) 7.3 % 9.4 % Monocytes (%) (Auto) 2.2 % 6.4 % Eosinophils (%) (Auto) 0.0 % 0.1 % Basophils (%) (Auto) 0.3 % 0.1 % Neutrophils # (Auto) 5.9 TH/MM3 4.0 TH/MM3 Lymphocytes # (Auto) 0.5 TH/MM3 0.5 TH/MM3 Monocytes # (Auto) 0.1 TH/MM3 0.3 TH/MM3 Eosinophils # (Auto) 0.0 TH/MM3 0.0 TH/MM3 Basophils # (Auto) 0.0 TH/MM3 0.0 TH/MM3 CBC Comment AUTO DIFF DIFF FINAL Differential Comment AUTO DIFF CONFIRMED Platelet Estimate NORMAL Platelet Morphology Comment NORMAL Laboratory Tests Test 02/18/17 06:02 02/19/17 04:48 Blood Urea Nitrogen 60 MG/DL 77 MG/DL Creatinine 1.41 MG/DL 1.64 MG/DL Random Glucose 226 MG/DL 239 MG/DL Total Protein 7.5 GM/DL 8.1 GM/DL Albumin 2.3 GM/DL 2.7 GM/DL Calcium Level 8.2 MG/DL 8.3 MG/DL Phosphorus Level 5.1 MG/DL 4.7 MG/DL Magnesium Level 2.6 MG/DL 2.8 MG/DL Alkaline Phosphatase 91 U/L 92 U/L Aspartate Amino Transf (AST/SGOT) 17 U/L 4 U/L Alanine Aminotransferase (ALT/SGPT) 23 U/L 19 U/L Total Bilirubin 0.4 MG/DL 0.4 MG/DL Sodium Level 136 MEQ/L 135 MEQ/L Potassium Level 5.0 MEQ/L 4.7 MEQ/L Chloride Level 99 MEQ/L 97 MEQ/L Carbon Dioxide Level 29.5 MEQ/L 33.2 MEQ/L Anion Gap 8 MEQ/L 5 MEQ/L Estimat Glomerular Filtration Rate 37 ML/MIN 31 ML/MIN Imaging Last Impressions Chest X-Ray 02/18/17 0600 Signed Impressions: Service Date/Time: February 03:17 - CONCLUSION: Clips and wires suggests CABG. Bilateral perihilar vascular congestion. Avinash Brito MD Foot MRI 02/17/17 0000 Signed Impressions: Service Date/Time: Friday, February 17, 2017 11:58 - CONCLUSION: Ulcer plantar surface of the foot, lateral side with edema base of the fifth metatarsal consistent with osteoarthritis. This does involve the insertion of the peroneus brevis tendon on the base of the fifth metatarsal. Ag Del Toro MD FACR Brain MRI 02/17/17 0000 Signed Impressions: Service Date/Time: Friday, February 17, 2017 11:48 - CONCLUSION: 1. No findings to indicate acute cortical infarct are identified. 2. Scattered areas of increased T2 signal in the white matter most consistent with mild microvascular ischemic demyelinative change. 3. There is fluid within the mastoid air cells bilaterally. Fausto Del Toro MD Physical Exam GENERAL: Awake and alert, looks comfortable at rest, on nasal O2. SKIN: Cool And dry. No generalized rash, no ecchymoses and no evidence of embolic lesions. HEAD: Atraumatic. Normocephalic. No temporal wasting, or tenderness. EYES: [place] conjunctiva. No petechia or hemorrhage. Pupils equal, round and reactive to light. Extraocular movements full and intact. No scleral icterus. No injection or drainage. EARS, NOSE AND THROAT: Nose without bleeding or purulent nasal discharge. No sinus tenderness. Mucous membranes pink and moist. NECK: Trachea midline. Supple and not tender, no meningeal signs CARDIOVASCULAR: Regular rate and rhythm. No murmurs, rubs or gallops heard. Sternotomy scar compatible with her surgical history. RESPIRATORY: Decreased breath sounds at bases. Breath sounds equal bilaterally. Rales at the bases. ABDOMEN: Soft, non-tender, nondistended. Bowel sounds present and normoactive. No guarding. No rebound. No organomegaly. EXTREMITIES: No clubbing, cyanosis. Has mild bilateral pedal edema. R foot , there is dry and intact dressing. NEUROLOGICAL: Awake and alert. Cranial nerves grossly intact. Motor grossly within normal limits. PSYCHIATRIC: Normal affect, calm and cooperative. LINE: PICC RUE with no evidence of infection Assessment & Plan Remarks IMPRESSION SOB, bilateral infiltrates, possibly CHF - was treated for PNA previously - Her CT looks similar findings as the one done at [facility] R foot plantar ulcer, currently does not look infected, no cellulitis - ?result of work-up in [facility], per SNF records she was supposed to get IV vanco x 14 days - possibly beginning Charcot foot durga Suicidal ideation RECOMMENDATION Patient is On IV vanco, continue for nows, if stable consider stopping this weekend Continue Levaquin, give at least total 7-10 days Wound care to the right foot per podiatry Clinically doing well from ID standpoint Yuli Moulton MD Feb 19, 2017 14:44
[2017-02-19] MEDS: ATORVASTATIN 40 MG TAB PO SCH (20:28)
[2017-02-20] VITALS (11 sets, daily range): BP systolic 134–155; BP diastolic 61–74; PULSE 71–83; RESP 10–20; TEMP 97.5–98; O2SAT 94–98
[2017-02-20] MEDS: methylPREDNISolone SOD SUCC 40 MG/1 ML VIAL IV PUSH SCH ×2 (02:00→08:03)
[2017-02-20] MEDS: CHLORHEXIDINE GLUCONATE 2 % 1 PACK (2 CLOTHS) TOP SCH (04:00)
[2017-02-20] MEDS: RESP: ALBUTEROL 2.5 MG/IPRATROPIUM 0.5 MG NEB (SCH) NEB ×4 (04:41→21:29)
[2017-02-20 04:46] LABS: AUTOMATED NEUTROPHIL # 4.2 TH/MM3 (1.8-7.7); BASOPHIL % 0.1 % (0.0-2.0); EOSINOPHIL % 0.1 % (0.0-4.0); HEMATOCRIT 27.1 % (35.0-46.0); HEMO FLAGS DIFF FINAL; LYMPH % 8.3 % (9.0-44.0); LYMPHOCYTE # 0.4 TH/MM3 (1.0-4.8); MEAN CELL VOLUME 84.5 FL (80.0-100.0); MEAN CORPUSCULAR HEMOGLOBIN 27.4 PG (27.0-34.0); MEAN CORPUSCULAR HGB CONC 32.4 % (32.0-36.0); MONO % 4.1 % (0.0-8.0); NEUT % 87.4 % (16.0-70.0); PLATELET COUNT 204 TH/MM3 (150-450); RED CELL DISTRIBUTION WIDTH 17.9 % (11.6-17.2); WHITE BLOOD COUNT 4.8 TH/MM3 (4.0-11.0)
[2017-02-20 05:55] LABS: ALKALINE PHOSPHATASE 80 U/L (45-117); ALT (GPT) 20 U/L (10-53); ANION GAP 7 MEQ/L (5-15); AST (GOT) 12 U/L (15-37); BLOOD UREA NITROGEN 82 MG/DL (7-18); CHLORIDE 96 MEQ/L (98-107); GLOMERULAR FILTRATION RATE 36 ML/MIN (>89); MAGNESIUM 2.6 MG/DL (1.5-2.5); POTASSIUM 4.6 MEQ/L (3.5-5.1); SODIUM (NA) 133 MEQ/L (136-145); TOTAL BILIRUBIN ADULT 0.3 MG/DL (0.2-1.0)
[2017-02-20] MEDS: hydrALAZINE HCL 100 MG TAB PO SCH ×3 (06:00→21:59)
[2017-02-20] MEDS: INSULIN ASPART SUPPLEMENTAL SCALE SQ SCH ×4 (08:00→22:00)
[2017-02-20] MEDS: CLOPIDOGREL 75 MG TAB PO SCH (08:02)
[2017-02-20] MEDS: QUEtiapine FUMARATE 25 MG TAB PO SCH ×2 (08:02→12:02)
[2017-02-20] MEDS: ASPIRIN 81 MG CHEW TAB CHEW SCH (08:02)
[2017-02-20] MEDS: GABAPENTIN 300 MG CAP PO SCH ×2 (08:02→21:59)
[2017-02-20] MEDS: guaiFENesin E.R. 600 MG TAB PO SCH ×2 (08:03→21:59)
[2017-02-20] MEDS: SERTRALINE HCL 50 MG TAB PO SCH (08:03)
[2017-02-20] MEDS: amLODIPine BESYLATE 5 MG TAB PO SCH (08:03)
[2017-02-20] MEDS: METOPROLOL TARTRATE 50 MG TAB PO SCH ×2 (08:03→21:59)
[2017-02-20] MEDS: HEPARIN SODIUM - SQ 10,000 UNITS/ML VIAL SQ SCH ×2 (08:12→22:00)
--- NOTE | 2017-02-20 10:57 | HHI.PR ---
Subjective Remarks 66-year-old female brought in from SNF for evaluation of suicidal ideation. was admitted to MEDICAL PSYCHIATRY and now TRANSFERRED to ICU for RESPIRATORY DISTRESS AND COPD AND CHF after [facility] was called. PATIENT WAS noted to be hypoxic and hypercapnic. limited hx from pt. medical chart reviewed. 02-17 WAS ON BIPAP LAST NIGHT PASSED SWALLOW WITH SPEECH- MECHANICAL SOFT DIET DM FOR MRI OF HEAD AND FOOT TODAY HAD EEG- TODAY DW RN AND PT AND SPEECH AND CCM 02-18 TO HAVE DEBRIDEMENT OF RIGHT FOOT AT BEDSIDE BY PODIATRY DW RN AND PATIENT NO NEW COMPLAINTS 02-19 BREATHING MUCH BETTER ON LESS OXYGEN DW RN AND PT HAD RIGHT FOOT DEBRIDEMENT BY PODIATRY AT BEDSIDE STABLE TO MOVE OUT OF ICU CASE MANAGEMENT FOR SNF PT AND OT 02-20 PATIENT WILL PROBABLY NEED OXYGEN AT THE SNF DW RN AND PT HOPEFULLY TO SNF ON 02-22 NEEDS WALK TEST SWITCH TO PO PREDNISONE DC SOLUMEDROL AM LABS PEPCID BID Objective Vitals Vital Signs Date Time Temp Pulse Resp B/P (MAP) Pulse Ox O2 Delivery O2 Flow Rate FiO2 02/20/17 10:20 94 Nasal Cannula 2.00 02/20/17 08:00 97.5 76 16 134/71 (92) 95 02/20/17 06:00 71 02/20/17 04:00 71 02/20/17 04:00 97.9 73 10 148/67 (94) 96 02/20/17 02:00 73 02/20/17 00:00 76 02/20/17 00:00 98.0 76 11 155/65 (95) 96 02/19/17 22:35 96 Nasal Cannula 2.00 02/19/17 22:00 75 02/19/17 21:47 97 Nasal Cannula 4.00 02/19/17 20:00 82 02/19/17 20:00 97.9 82 23 144/72 (96) 95 02/19/17 19:00 97 Nasal Cannula 3.00 02/19/17 18:00 80 02/19/17 16:00 81 02/19/17 16:00 98.6 82 20 112/56 (74) 94 02/19/17 15:00 84 20 112/58 (76) 96 02/19/17 14:00 84 02/19/17 14:00 84 22 111/56 (74) 95 02/19/17 13:00 82 23 107/63 (78) 92 02/19/17 12:00 82 02/19/17 12:00 98.2 86 17 121/57 (78) 93 02/19/17 11:00 84 18 123/59 (80) 95 I/O 02/19/17 02/19/17 02/19/17 02/20/17 02/20/17 02/20/17 07:00 15:00 23:00 07:00 15:00 23:00 Intake Total 200 ml 150 ml 680 ml 800 ml Output Total 1100 ml Balance 200 ml 150 ml -420 ml 800 ml Intake Oral 200 ml 680 ml 800 ml IV Total 150 ml Output Urine Total 1100 ml # Voids 2 2 1 # Bowel Movements 1 0 Result Diagram: 02/20/17 0340 02/20/17 0340 Other Results Laboratory Tests Test 02/17/17 15:45 02/18/17 06:02 02/18/17 18:20 02/19/17 04:48 Urine Color YELLOW Urine Turbidity HAZY Urine pH 5.0 Urine Specific [place] 1.014 Urine Protein 30 mg/dL Urine Glucose (UA) NEG mg/dL Urine Ketones NEG mg/dL Urine Occult Blood NEG Urine Nitrite NEG Urine Bilirubin NEG Urine Urobilinogen LESS THAN 2.0 MG/DL Urine Leukocyte Esterase NEG Urine RBC 2 /hpf Urine WBC 2 /hpf Urine Squamous Epithelial Cells 1 /hpf Urine Amorphous Sediment RARE Urine Mucus FEW /lpf Microscopic Urinalysis Comment CATH-CULT NOT IND White Blood Count 6.6 TH/MM3 4.8 TH/MM3 Red Blood Count 3.19 MIL/MM3 3.52 MIL/MM3 Hemoglobin 8.6 GM/DL 9.5 GM/DL Hematocrit 27.3 % 30.1 % Mean Corpuscular Volume 85.5 FL 85.5 FL Mean Corpuscular Hemoglobin 27.0 PG 27.0 PG Mean Corpuscular Hemoglobin Concent 31.6 % 31.5 % Red Cell Distribution Width 18.3 % 17.8 % Platelet Count 210 TH/MM3 231 TH/MM3 Mean Platelet Volume 7.8 FL 7.5 FL Neutrophils (%) (Auto) 90.2 % 84.0 % Lymphocytes (%) (Auto) 7.3 % 9.4 % Monocytes (%) (Auto) 2.2 % 6.4 % Eosinophils (%) (Auto) 0.0 % 0.1 % Basophils (%) (Auto) 0.3 % 0.1 % Neutrophils # (Auto) 5.9 TH/MM3 4.0 TH/MM3 Lymphocytes # (Auto) 0.5 TH/MM3 0.5 TH/MM3 Monocytes # (Auto) 0.1 TH/MM3 0.3 TH/MM3 Eosinophils # (Auto) 0.0 TH/MM3 0.0 TH/MM3 Basophils # (Auto) 0.0 TH/MM3 0.0 TH/MM3 CBC Comment AUTO DIFF DIFF FINAL Differential Comment AUTO DIFF CONFIRMED Platelet Estimate NORMAL Platelet Morphology Comment NORMAL Blood Urea Nitrogen 60 MG/DL 77 MG/DL Creatinine 1.41 MG/DL 1.64 MG/DL Random Glucose 226 MG/DL 239 MG/DL Total Protein 7.5 GM/DL 8.1 GM/DL Albumin 2.3 GM/DL 2.7 GM/DL Calcium Level 8.2 MG/DL 8.3 MG/DL Phosphorus Level 5.1 MG/DL 4.7 MG/DL Magnesium Level 2.6 MG/DL 2.8 MG/DL Alkaline Phosphatase 91 U/L 92 U/L Aspartate Amino Transf (AST/SGOT) 17 U/L 4 U/L Alanine Aminotransferase (ALT/SGPT) 23 U/L 19 U/L Total Bilirubin 0.4 MG/DL 0.4 MG/DL Sodium Level 136 MEQ/L 135 MEQ/L Potassium Level 5.0 MEQ/L 4.7 MEQ/L Chloride Level 99 MEQ/L 97 MEQ/L Carbon Dioxide Level 29.5 MEQ/L 33.2 MEQ/L Anion Gap 8 MEQ/L 5 MEQ/L Estimat Glomerular Filtration Rate 37 ML/MIN 31 ML/MIN Vancomycin Level Trough 27.8 MCG/ML Random Vancomycin Level 24.7 COMMENT Test 02/20/17 03:40 White Blood Count 4.8 TH/MM3 Red Blood Count 3.20 MIL/MM3 Hemoglobin 8.8 GM/DL Hematocrit 27.1 % Mean Corpuscular Volume 84.5 FL Mean Corpuscular Hemoglobin 27.4 PG Mean Corpuscular Hemoglobin Concent 32.4 % Red Cell Distribution Width 17.9 % Platelet Count 204 TH/MM3 Mean Platelet Volume 7.7 FL Neutrophils (%) (Auto) 87.4 % Lymphocytes (%) (Auto) 8.3 % Monocytes (%) (Auto) 4.1 % Eosinophils (%) (Auto) 0.1 % Basophils (%) (Auto) 0.1 % Neutrophils # (Auto) 4.2 TH/MM3 Lymphocytes # (Auto) 0.4 TH/MM3 Monocytes # (Auto) 0.2 TH/MM3 Eosinophils # (Auto) 0.0 TH/MM3 Basophils # (Auto) 0.0 TH/MM3 CBC Comment DIFF FINAL Differential Comment Blood Urea Nitrogen 82 MG/DL Creatinine 1.44 MG/DL Random Glucose 281 MG/DL Total Protein 7.4 GM/DL Albumin 2.6 GM/DL Calcium Level 7.9 MG/DL Phosphorus Level 3.7 MG/DL Magnesium Level 2.6 MG/DL Alkaline Phosphatase 80 U/L Aspartate Amino Transf (AST/SGOT) 12 U/L Alanine Aminotransferase (ALT/SGPT) 20 U/L Total Bilirubin 0.3 MG/DL Sodium Level 133 MEQ/L Potassium Level 4.6 MEQ/L Chloride Level 96 MEQ/L Carbon Dioxide Level 30.0 MEQ/L Anion Gap 7 MEQ/L Estimat Glomerular Filtration Rate 36 ML/MIN Random Vancomycin Level 19.5 COMMENT Imaging Last Impressions Chest X-Ray 02/18/17 0600 Signed Impressions: Service Date/Time: February 03:17 - CONCLUSION: Clips and wires suggests CABG. Bilateral perihilar vascular congestion. Avinash Brito MD Foot MRI 02/17/17 0000 Signed Impressions: Service Date/Time: Friday, February 17, 2017 11:58 - CONCLUSION: Ulcer plantar surface of the foot, lateral side with edema base of the fifth metatarsal consistent with osteoarthritis. This does involve the insertion of the peroneus brevis tendon on the base of the fifth metatarsal. Ag Del Toro MD FACR Brain MRI 02/17/17 0000 Signed Impressions: Service Date/Time: Friday, February 17, 2017 11:48 - CONCLUSION: 1. No findings to indicate acute cortical infarct are identified. 2. Scattered areas of increased T2 signal in the white matter most consistent with mild microvascular ischemic demyelinative change. 3. There is fluid within the mastoid air cells bilaterally. Fausot Del Toro MD Objective Remarks GENERAL: More awake and alert and oriented today more talkative and cooperative not lethargic SKIN: Warm and dry. Bilateral feet dressed RIGHT FOOT DRESSED HEAD: Atraumatic. Normocephalic. EYES: Pupils equal and round. No scleral icterus. No injection or drainage. Extraocular muscles intact ENT: No nasal bleeding or discharge. Mucous membranes pink and moist. Tongue is Midline NECK: Trachea midline. No JVD. Neck is supple CARDIOVASCULAR: Regular rate and rhythm. S1-S2 no S3-S4 no heave or thrill or rub or gallop RESPIRATORY: No accessory muscle use. Clear to auscultation. Breath sounds equal bilaterally. GASTROINTESTINAL: Abdomen soft, non-tender, nondistended. Hepatic and splenic margins not palpable. MUSCULOSKELETAL: Extremities without clubbing, cyanosis, or edema. No obvious deformities. NEUROLOGICAL: Awake and alert. No obvious cranial nerve deficits. Motor grossly within normal limits. 4 out of 5 muscle strength in the arms and legs. Normal speech. PSYCHIATRIC: IAppropriate mood and affect; insight and judgment normal. Procedures R plantar midfoot ulceration approx 2cm x 1.8cm x 0.2cm depth with hyperkeratotic rim. Bleeds readily upon debridement. No purulence noted. No probe to bone noted. Assessment & Plan A/P R foot ulcer Bedside excisional debridement performed of R foot ulcer with #15 blade of all hyperkeratotic and fibrotic tissue down to healthy bleeding subcutaneous tissue. Dressing with nonadherent gauze, 4x4, cling, tape applied. Daily dressing changes per nursing with xeroform, 4x4, cling, tape No further treatment planned. Continue local wound care. Podiatry signing off- reconsult if new issues arise Ordered bilateral surgical shoes for patient. Eric Nagel DPM Medications and IVs Current Medications Amlodipine Besylate (Norvasc) 5 mg DAILY PO Last administered on 02/20/17 08: 03; Start 02/17/17 at 09:00 Aspirin (Aspirin Chew) 81 mg DAILY CHEW Last administered on 02/20/17 08:02; Start 02/17/17 at 09:00 Clopidogrel Bisulfate (Plavix) 75 mg DAILY PO Last administered on 02/20/17 08:02; Start 02/17/17 at 09:00 Dextrose (D50w (Vial) Inj) 50 ml UNSCH PRN IV PUSH HYPOGLYCEMIA-SEE COMMENTS; Start 02/16/17 at 17:15; Stop 02/16/17 at 19:19; Status DC Glucagon (Glucagon Inj) 1 mg UNSCH PRN OTHER HYPOGLYCEMIA-SEE COMMENTS; Start 02/16/17 at 17:15; Stop 02/16/17 at 19:21; Status DC Insulin Human Regular (NovoLIN R SUPPLEMENTAL SCALE) 1 Q4H SQ ; Start 02/16/17 at 18:00; Stop 02/16/17 at 19:23; Status DC Metoprolol Tartrate (Lopressor) 50 mg Q12HR PO Last administered on 02/20/17 08:03; Start 02/16/17 at 21:00 Hydralazine HCl (Apresoline) 100 mg Q8HR PO Last administered on 02/20/17 06: 00; Start 02/16/17 at 22:00 Pharmacy Profile Note 0 ml @ 0 mls/hr UNSCH OTHER ; Start 02/16/17 at 17:15 Vancomycin HCl 1750 mg/Sodium Chloride 517.5 ml @ 250 mls/hr NOW ONCE IV Last administered on 02/16/17 18:10; Start 02/16/17 at 17:45; Stop 02/16/17 at 19:49; Status DC Vancomycin HCl 1400 mg/Sodium Chloride 514 ml @ 250 mls/hr Q24H IV Last administered on 02/17/17 18:00; Start 02/17/17 at 18:00; Status Future Hold Methylprednisolone Sodium Succinate (SoluMEDROL INJ) 40 mg Q6H IV PUSH Last administered on 02/20/17 08:03; Start 02/16/17 at 20:00 Guaifenesin (Mucinex Er) 600 mg BID PO Last administered on 02/20/17 08:03; Start 02/16/17 at 21:00 Albuterol/ Ipratropium (Duoneb Neb) 1 ampule Q4HR NEB PRN NEB SHORTNESS OF BREATH; Start 02/16/17 at 17:45; Stop 02/18/17 at 14:01; Status DC Sertraline HCl (Zoloft) 25 mg DAILY PO Last administered on 02/20/17 08:03; Start 02/17/17 at 09:00 Quetiapine Fumarate (SEROquel) 12.5 mg BID@09,12 PO Last administered on 08:02; Start 02/17/17 at 09:00 Atorvastatin Calcium (Lipitor) 40 mg HS PO Last administered on 02/19/17 20: 28; Start 02/16/17 at 21:00 Gabapentin (Neurontin) 600 mg TID PO ; Start 02/16/17 at 18:00; Stop 02/17/17 at 14:50; Status DC Levofloxacin (Levaquin) 750 mg Q48H PO ; Start 02/17/17 at 09:00; Stop at 09:00; Status DC Azithromycin (Zithromax) 500 mg DAILY PO ; Start 02/17/17 at 09:00; Stop 02/19 at 14:40; Status DC Insulin Aspart (NovoLOG SUPPLEMENTAL SCALE) 1 ACHS SLIDING SCALE SQ Last administered on 02/19/17 20:29; Start 02/16/17 at 21:00 Miscellaneous Information 1 Q361D XX ; Start 02/16/17 at 17:45 Chlorhexidine Gluconate (Chlorhexidine 2% Cloth) 3 pack Taper DAILY@04 TOP Last administered on 02/20/17 04:00; Start 02/17/17 at 04:00; Stop 02/13/18 at 03:59 Chlorhexidine Gluconate (Chlorhexidine 2% Cloth) 3 pack UNSCH PRN TOP HYGIENIC CARE; Start 02/16/17 at 17:45 Dextrose (D50w (Vial) Inj) 50 ml UNSCH PRN IV PUSH HYPOGLYCEMIA-SEE COMMENTS; Start 02/16/17 at 17:45 Glucagon (Glucagon Inj) 1 mg UNSCH PRN OTHER HYPOGLYCEMIA-SEE COMMENTS; Start 02/16/17 at 17:45 Miscellaneous (Pill Splitter) 1 ea UNSCH PRN OTHER SEE LABEL COMMENTS; Start 02/16/17 at 19:30 Hydralazine HCl (Apresoline Inj) 10 mg Q6H PRN IV PUSH SEE LABEL COMMENTS; Start 02/16/17 at 20:15 Levofloxacin/ Dextrose 150 ml @ 100 mls/hr Q48H IV Last administered on 08:02; Start 02/17/17 at 09:00; Stop 02/19/17 at 14:40; Status DC Azithromycin 500 mg/Sodium Chloride 250 ml @ 250 mls/hr Q24H IV Last administered on 02/18/17 08:10; Start 02/17/17 at 09:00; Stop 02/18/17 at 12 :28; Status DC Heparin Sodium (Porcine) (Heparin Inj) 5,000 units Q12HR SQ Last administered on 02/20/17 08:12; Start 02/17/17 at 21:00 Gabapentin (Neurontin) 600 mg BID PO Last administered on 02/20/17 08:02; Start 02/17/17 at 21:00 Chlorhexidine Gluconate (Hibiclens 4% Top Soln) 1 applic ONCE ONCE TOPICAL ; Start 02/17/17 at 18:15; Stop 02/17/17 at 18:17; Status DC Pneumococcal Polyvalent Vaccine (Pneumovax-23 Inj) 25 mcg ONCE ONCE IM Last administered on 02/19/17 09:15; Start 02/19/17 at 10:00; Stop 02/19/17 at 10 :01; Status DC Influenza Virus Vaccine (Flu (Quadrivalent) Vaccine Inj) 0.5 ml ONCE ONCE IM Last administered on 02/19/17 09:18; Start 02/19/17 at 10:00; Stop 02/19/17 at 10:01; Status DC Miscellaneous Information SPECIFIC LAB TO BE DRAWN:VANCOMYCIN TROUGH DATE TO... ONCE ONCE .XX ; Start 02/18/17 at 17:45; Stop 02/18/17 at 17:46; Status DC Albuterol/ Ipratropium (Duoneb Neb) 1 ampule Q6HR NEB NEB Last administered on 02/20/17 10:20; Start 02/18/17 at 16:00 Albuterol Sulfate (Albuterol Neb) 2.5 mg Q2HR NEB PRN NEB dyspnea; Start 02/18 at 14:15 Levofloxacin (Levaquin) 750 mg Q48H PO ; Start 02/21/17 at 09:00; Stop at 09:01 A/P Problem List: (1) Unspecified psychosis ICD Code: F29 - Unspecified psychosis not due to a substance or known physiological condition (2) DEMENTIA IN OTH DISEASES CLASSD ELSWHR W/O BEHAVRL DISTURB ICD Code: F02.80 - DEMENTIA IN OTH DISEASES CLASSD ELSWHR W/O BEHAVRL DISTURB Status: Chronic (3) Encephalopathy, metabolic ICD Code: G93.41 - Metabolic encephalopathy Status: Acute (4) CHF (congestive heart failure) ICD Code: I50.9 - Heart failure, unspecified Status: Acute (5) Respiratory distress ICD Code: R06.03 - Acute respiratory distress Status: Acute (6) Hypoxia ICD Code: R09.02 - Hypoxemia Assessment and Plan TRANSFERRED TO ICU AT REQUEST OF PSYCHIATRY 02-16 STARTING THIS MORNING PATIENT STARTED TO DECOMPENSATE 02-16 //Atypical pneumonia. //Hypoxic respiratory failure. Pulse oximetry 82 on room air on admission. On 4 L now //Possible CHF exacerbation IMPROVED -With productive cough -CT pulmonary angiogram with mediastinal adenopathy, bilateral pulmonary infiltrates. Duo Nebs, LEVAQUIN. VANCO Continue diet with 1800 mL fluid restriction. WILL GET AM LABS HYPOXIA- WILL NEED HOME OXYGEN AND PO PREDNISONE- MUCINEX --Slow improvement Less hypoxic only on 3 LITERS ON LEVAQUIN AND VANCO //Hypertension. //CAD status post CABG 3 //history of CHF. Blood pressure acceptable. Continue home medications. Continue aspirin and Plavix. Continue to monitor. = BNP 284 on admission. Echocardiogram pending. Continue fluid restrictions. DIURESE //Diabetes mellitus type 2. -Blood sugars elevated. Insulin sliding scale added. Continue diabetic diet. continue Levemir.. Past swallow eval will continue on diabetic mechanical soft diet //Diabetic neuropathy. Due to renal sufficiency, will decrease gabapentin dose. Continue to monitor. //Hyperlipidemia. Continue home medications. //Bilateral feet with diabetic ulcers. Right worse than left. Patient is to be continued on Cipro and daptomycin until 02/19. Requesting outside records, still pending. -ESR 76. =Infectious disease consult at. Continue on vancomycin as per infectious disease. Appreciate assistance = Podiatry consulted follow-up recommendations. PODIATRY TO DO SURGERY AT BEDSIDE ON RIGHT LE WOUND 02-18 RIGHT FOOT DRESSED //Anemia. Hemoglobin 8.9. Uncertain chronicity. No signs of bleeding. Reorder labs. //Renal insufficiency. Creatinine 1.18. On admission. GFR 49 on admission. Uncertain baseline. = Creatinine 0.97. Outside records still pending. CONTINUE VANCO, LEVAQUIN DC LASIX AM LAB CONSULT PT AND OT FOR LEFT UE WEAKNESS INCENTIVE SPIROMETRY MUCH IMPROVED TRANSFER OUT OF ICU CASE MANAGEMENT FOR SNF PSYCHIATRY HAS SIGNED OFF- SUSPECT HAD CO2 RETENTION/NARCOSIS PRIOR TO PSYCHIATRIC ADMISSION PSYCHIATRIC ISSUES RESOLVED NOW THAT NOT HYPOXIC Discharge Planning Pending infectious disease clearance and pulmonary clearance Problem Qualifiers (1) CHF (congestive heart failure): Ag Shin DO Feb 20, 2017 10:57
--- NOTE | 2017-02-20 11:07 | HHI.IDPN ---
Subjective Subjective Remarks The patient is a 66-year-old female, who I saw in the psychiatric unit last February 15, for evaluation of her right foot infection. She was initially admitted in the psych unit for suicidal ideation. Patient was getting IV antibiotics in the prison and she was on IV Vanco was started February 11, and the plan was for her to get a two-week course of IV antibiotic. Of note is that the patient was on antibiotic, getting IV Cubicin and Cipro in the prison, which look like it was started around February 05, however she was admitted at [facility] for evaluation of shortness of breath and altered mental status. There were very limited records for review, but during that admission she was found to have an ulcer on the right foot which apparently has been chronic. I did not have any information as to what kind of workup was done at that time. She had a CT of the chest during her hospitalization there and it did not show any pulmonary embolism, but showed pulmonary infiltrates suggestive of congestive heart failure. She was discharged February 11 to the prison on IV Vanco, with plans to finish 2 week course. Patient however apparently had suicidal ideation in the prison, so she was taken to [place] and was admitted in the psychiatric unit. Podiatry also saw her in the psych unit, and she was getting some workup for her right foot to determine the extent of her infection. Patient apparently had more shortness of breath, and decreased level of consciousness, so she was transferred to the main hospital, in the ICU for workup and closer monitoring. Patient currently complains of shortness of breath and complaints of chest pain. She states she is bringing up some phlegm and his color yellow. She is currently on BiPAP. Neurology also is evaluating the patient, and she just finished having her EEG done. Patient is afebrile. Her chest x-ray showing vascular engorgement, and bilateral interstitial prominence. She has had a CTA while at the psych unit, and it looks like it's the same finding as what she had at [facility]. Her WBC is normal. Patient is currently on IV Vanco, Levaquin, and Zithromax. Infectious disease consultation is requested to continue with management of her right foot infection Notes reviewed Breathing feels better On nasal O2, sats good Good UO Temps ok Antibiotics Levaquin po Current Medications Medications (Trade) Dose Ordered Sig/Fátima Route Start Time Stop Time Status Last Admin (Norvasc) 5 mg DAILY PO 02/17/17 09:00 02/20/17 08:03 (Aspirin Chew) 81 mg DAILY CHEW 02/17/17 09:00 02/20/17 08:02 (Plavix) 75 mg DAILY PO 02/17/17 09:00 02/20/17 08:02 (Lopressor) 50 mg Q12HR PO 02/16/17 21:00 02/20/17 08:03 (Apresoline) 100 mg Q8HR PO 02/16/17 22:00 02/20/17 06:00 Pharmacy Profile Note 0 ml @ 0 mls/hr UNSCH OTHER 02/16/17 17:15 Vancomycin HCl 1400 mg/Sodium Chloride 514 ml @ 250 mls/hr Q24H IV 02/17/17 18:00 Future Hold 02/17/17 18:00 (Mucinex Er) 600 mg BID PO 02/16/17 21:00 02/20/17 08:03 (Zoloft) 25 mg DAILY PO 02/17/17 09:00 02/20/17 08:03 (SEROquel) 12.5 mg BID@09,12 PO 02/17/17 09:00 02/20/17 08:02 (Lipitor) 40 mg HS PO 02/16/17 21:00 02/19/17 20:28 (NovoLOG SUPPLEMENTAL SCALE) 1 ACHS SLIDING SCALE SQ 02/16/17 21:00 02/19/17 20:29 Miscellaneous Information 1 Q361D XX 02/16/17 17:45 (Chlorhexidine 2% Cloth) 3 pack Taper DAILY@04 TOP 02/17/17 04:00 02/13/18 03:59 02/20/17 04:00 (Chlorhexidine 2% Cloth) 3 pack UNSCH PRN TOP 02/16/17 17:45 (D50w (Vial) Inj) 50 ml UNSCH PRN IV PUSH 02/16/17 17:45 (Glucagon Inj) 1 mg UNSCH PRN OTHER 02/16/17 17:45 (Pill Splitter) 1 ea UNSCH PRN OTHER 02/16/17 19:30 (Apresoline Inj) 10 mg Q6H PRN IV PUSH 02/16/17 20:15 (Heparin Inj) 5,000 units Q12HR SQ 02/17/17 21:00 02/20/17 08:12 (Neurontin) 600 mg BID PO 02/17/17 21:00 02/20/17 08:02 (Duoneb Neb) 1 ampule Q6HR NEB NEB 02/18/17 16:00 02/20/17 10:20 (Albuterol Neb) 2.5 mg Q2HR NEB PRN NEB 02/18/17 14:15 (Levaquin) 750 mg Q48H PO 02/21/17 09:00 02/25/17 09:01 (Deltasone) 20 mg BID PO 02/20/17 11:00 (Pepcid) 10 mg BID PO 02/20/17 11:00 Lines PIV Past Medical History Charcot joint right foot Chronic ulcer right foot CAD CHF Anemia Depression Diabetes mellitus Past Surgical History CABG Allergies: Coded Allergies: No Known Allergies (Unverified , 02/12/17) Objective . Vital Signs Date Time Temp Pulse Resp B/P (MAP) Pulse Ox O2 Delivery O2 Flow Rate FiO2 02/20/17 10:20 94 Nasal Cannula 2.00 02/20/17 08:00 97.5 76 16 134/71 (92) 95 02/20/17 06:00 71 02/20/17 04:00 71 02/20/17 04:00 97.9 73 10 148/67 (94) 96 02/20/17 02:00 73 02/20/17 00:00 76 02/20/17 00:00 98.0 76 11 155/65 (95) 96 02/19/17 22:35 96 Nasal Cannula 2.00 02/19/17 22:00 75 02/19/17 21:47 97 Nasal Cannula 4.00 02/19/17 20:00 82 02/19/17 20:00 97.9 82 23 144/72 (96) 95 02/19/17 19:00 97 Nasal Cannula 3.00 02/19/17 18:00 80 02/19/17 16:00 81 02/19/17 16:00 98.6 82 20 112/56 (74) 94 02/19/17 15:00 84 20 112/58 (76) 96 02/19/17 14:00 84 02/19/17 14:00 84 22 111/56 (74) 95 02/19/17 13:00 82 23 107/63 (78) 92 02/19/17 12:00 82 02/19/17 12:00 98.2 86 17 121/57 (78) 93 . Laboratory Tests Test 02/19/17 04:48 02/20/17 03:40 White Blood Count 4.8 TH/MM3 4.8 TH/MM3 Red Blood Count 3.52 MIL/MM3 3.20 MIL/MM3 Hemoglobin 9.5 GM/DL 8.8 GM/DL Hematocrit 30.1 % 27.1 % Mean Corpuscular Volume 85.5 FL 84.5 FL Mean Corpuscular Hemoglobin 27.0 PG 27.4 PG Mean Corpuscular Hemoglobin Concent 31.5 % 32.4 % Red Cell Distribution Width 17.8 % 17.9 % Platelet Count 231 TH/MM3 204 TH/MM3 Mean Platelet Volume 7.5 FL 7.7 FL Neutrophils (%) (Auto) 84.0 % 87.4 % Lymphocytes (%) (Auto) 9.4 % 8.3 % Monocytes (%) (Auto) 6.4 % 4.1 % Eosinophils (%) (Auto) 0.1 % 0.1 % Basophils (%) (Auto) 0.1 % 0.1 % Neutrophils # (Auto) 4.0 TH/MM3 4.2 TH/MM3 Lymphocytes # (Auto) 0.5 TH/MM3 0.4 TH/MM3 Monocytes # (Auto) 0.3 TH/MM3 0.2 TH/MM3 Eosinophils # (Auto) 0.0 TH/MM3 0.0 TH/MM3 Basophils # (Auto) 0.0 TH/MM3 0.0 TH/MM3 CBC Comment DIFF FINAL DIFF FINAL Differential Comment Laboratory Tests Test 02/19/17 04:48 02/20/17 03:40 Blood Urea Nitrogen 77 MG/DL 82 MG/DL Creatinine 1.64 MG/DL 1.44 MG/DL Random Glucose 239 MG/DL 281 MG/DL Total Protein 8.1 GM/DL 7.4 GM/DL Albumin 2.7 GM/DL 2.6 GM/DL Calcium Level 8.3 MG/DL 7.9 MG/DL Phosphorus Level 4.7 MG/DL 3.7 MG/DL Magnesium Level 2.8 MG/DL 2.6 MG/DL Alkaline Phosphatase 92 U/L 80 U/L Aspartate Amino Transf (AST/SGOT) 4 U/L 12 U/L Alanine Aminotransferase (ALT/SGPT) 19 U/L 20 U/L Total Bilirubin 0.4 MG/DL 0.3 MG/DL Sodium Level 135 MEQ/L 133 MEQ/L Potassium Level 4.7 MEQ/L 4.6 MEQ/L Chloride Level 97 MEQ/L 96 MEQ/L Carbon Dioxide Level 33.2 MEQ/L 30.0 MEQ/L Anion Gap 5 MEQ/L 7 MEQ/L Estimat Glomerular Filtration Rate 31 ML/MIN 36 ML/MIN Imaging Last Impressions Chest X-Ray 02/18/17 0600 Signed Impressions: Service Date/Time: February 03:17 - CONCLUSION: Clips and wires suggests CABG. Bilateral perihilar vascular congestion. Avinash Brito MD Foot MRI 02/17/17 0000 Signed Impressions: Service Date/Time: Friday, February 17, 2017 11:58 - CONCLUSION: Ulcer plantar surface of the foot, lateral side with edema base of the fifth metatarsal consistent with osteoarthritis. This does involve the insertion of the peroneus brevis tendon on the base of the fifth metatarsal. Ag Del Toro MD FACR Brain MRI 02/17/17 0000 Signed Impressions: Service Date/Time: Friday, February 17, 2017 11:48 - CONCLUSION: 1. No findings to indicate acute cortical infarct are identified. 2. Scattered areas of increased T2 signal in the white matter most consistent with mild microvascular ischemic demyelinative change. 3. There is fluid within the mastoid air cells bilaterally. Fausto Del Toro MD Physical Exam GENERAL: Awake and alert, looks comfortable at rest, on nasal O2. SKIN: Cool And dry. No generalized rash, no ecchymoses and no evidence of embolic lesions. HEAD: Atraumatic. Normocephalic. No temporal wasting, or tenderness. EYES: [place] conjunctiva. No petechia or hemorrhage. Pupils equal, round and reactive to light. Extraocular movements full and intact. No scleral icterus. EARS, NOSE AND THROAT: Nose without bleeding or purulent nasal discharge. Mucous membranes pink and moist. NECK: Trachea midline. Supple and not tender, no meningeal signs CARDIOVASCULAR: Regular rate and rhythm. No murmurs, rubs or gallops heard. Sternotomy scar compatible with her surgical history. RESPIRATORY: Decreased breath sounds at bases. Breath sounds equal bilaterally. Rales at the bases. ABDOMEN: Soft, non-tender, nondistended. Bowel sounds present and normoactive. No guarding. No rebound. No organomegaly. EXTREMITIES: No clubbing, cyanosis. Has mild bilateral pedal edema. R foot , there is dry and intact dressing. NEUROLOGICAL: Awake and alert. Cranial nerves grossly intact. Motor grossly within normal limits. PSYCHIATRIC: Normal affect, calm and cooperative. LINE: PICC RUE with no evidence of infection Assessment & Plan Remarks IMPRESSION SOB, bilateral infiltrates, possibly CHF - was treated for PNA previously - Her CT looks similar findings as the one done at [facility] R foot plantar ulcer, currently does not look infected, no cellulitis - ?result of work-up in [facility], per SNF records she was supposed to get IV vanco x 14 days - possibly beginning Charcot foot durga Suicidal ideation RECOMMENDATION Stop Vancomycin Continue Levaquin, give at least total 7-10 days - edn date ordered in [facility] Wound care to the right foot per podiatry Agree with plans Clinically doing well from ID standpoint I will be available prn Please call if with any new ID issue or question Yuli Moulton MD Feb 20, 2017 11:07
[2017-02-20] MEDS: FAMOTIDINE 20 MG TAB PO SCH ×2 (12:02→22:00)
[2017-02-20] MEDS: predniSONE 20 MG TAB PO SCH ×2 (12:02→21:59)
[2017-02-20] MEDS: ATORVASTATIN 40 MG TAB PO SCH (21:59)
[2017-02-20] MEDS: INSULIN DETEMIR 100 UNITS/ML VIAL SQ SCH (22:00)
[2017-02-21] VITALS (7 sets, daily range): BP systolic 109–164; BP diastolic 55–84; PULSE 71–84; RESP 18–20; TEMP 97.5–98.6; O2SAT 92–98
[2017-02-21] MEDS: CHLORHEXIDINE GLUCONATE 2 % 1 PACK (2 CLOTHS) TOP SCH (04:00)
[2017-02-21] MEDS: hydrALAZINE HCL 100 MG TAB PO SCH ×3 (06:31→21:34)
[2017-02-21] MEDS: INSULIN ASPART SUPPLEMENTAL SCALE SQ SCH ×4 (08:56→21:38)
[2017-02-21] MEDS: INSULIN DETEMIR 100 UNITS/ML VIAL SQ SCH (08:59)
[2017-02-21] MEDS ORDERED: LEVOFLOXACIN 750 MG TAB PO SCH (09:00)
[2017-02-21] MEDS: guaiFENesin E.R. 600 MG TAB PO SCH ×2 (09:00→21:33)
[2017-02-21] MEDS: amLODIPine BESYLATE 5 MG TAB PO SCH (09:00)
[2017-02-21] MEDS: METOPROLOL TARTRATE 50 MG TAB PO SCH ×2 (09:00→21:34)
[2017-02-21] MEDS: ASPIRIN 81 MG CHEW TAB CHEW SCH (09:00)
[2017-02-21] MEDS: GABAPENTIN 300 MG CAP PO SCH ×2 (09:00→21:34)
[2017-02-21] MEDS: HEPARIN SODIUM - SQ 10,000 UNITS/ML VIAL SQ SCH ×2 (09:00→21:33)
[2017-02-21] MEDS: CLOPIDOGREL 75 MG TAB PO SCH (09:00)
[2017-02-21] MEDS: SERTRALINE HCL 50 MG TAB PO SCH (09:01)
[2017-02-21] MEDS: predniSONE 20 MG TAB PO SCH (09:01)
[2017-02-21] MEDS: QUEtiapine FUMARATE 25 MG TAB PO SCH ×2 (09:01→12:13)
[2017-02-21] MEDS: FAMOTIDINE 20 MG TAB PO SCH ×2 (09:01→21:34)
[2017-02-21] MEDS: RESP: ALBUTEROL 2.5 MG/IPRATROPIUM 0.5 MG NEB (SCH) NEB ×2 (09:19→19:36)
--- NOTE | 2017-02-21 12:10 | HHI.PR ---
Objective Vitals Vital Signs Date Time Temp Pulse Resp B/P (MAP) Pulse Ox O2 Delivery O2 Flow Rate FiO2 02/21/17 09:19 94 Nasal Cannula 2.00 02/21/17 08:00 97.5 71 18 133/66 (88) 98 02/21/17 04:00 97.6 77 20 164/84 (110) 98 02/20/17 23:58 97.5 83 20 141/74 (96) 97 02/20/17 22:01 Nasal Cannula 3.00 02/20/17 21:30 97 Nasal Cannula 1.50 02/20/17 20:00 97.7 76 20 138/64 (88) 98 02/20/17 18:36 Nasal Cannula 2.00 02/20/17 16:00 97.7 78 16 137/71 (93) 97 I/O 02/20/17 02/20/17 02/20/17 02/21/17 02/21/17 02/21/17 07:00 15:00 23:00 07:00 15:00 23:00 Intake Total 800 ml 240 ml Balance 800 ml 240 ml Intake Oral 800 ml 240 ml # Voids 1 1 1 Result Diagram: 02/20/17 0340 02/20/17 1648 Procedures R plantar midfoot ulceration approx 2cm x 1.8cm x 0.2cm depth with hyperkeratotic rim. Bleeds readily upon debridement. No purulence noted. No probe to bone noted. Assessment & Plan A/P R foot ulcer Bedside excisional debridement performed of R foot ulcer with #15 blade of all hyperkeratotic and fibrotic tissue down to healthy bleeding subcutaneous tissue. Dressing with nonadherent gauze, 4x4, cling, tape applied. Daily dressing changes per nursing with xeroform, 4x4, cling, tape No further treatment planned. Continue local wound care. Podiatry signing off- reconsult if new issues arise Ordered bilateral surgical shoes for patient. Eric Nagel DPM A/P Problem List: (1) Unspecified psychosis ICD Code: F29 - Unspecified psychosis not due to a substance or known physiological condition (2) DEMENTIA IN OTH DISEASES CLASSD ELSWHR W/O BEHAVRL DISTURB ICD Code: F02.80 - DEMENTIA IN OTH DISEASES CLASSD ELSWHR W/O BEHAVRL DISTURB Status: Chronic (3) Encephalopathy, metabolic ICD Code: G93.41 - Metabolic encephalopathy Status: Acute (4) CHF (congestive heart failure) ICD Code: I50.9 - Heart failure, unspecified Status: Acute (5) Respiratory distress ICD Code: R06.03 - Acute respiratory distress Status: Acute (6) Hypoxia ICD Code: R09.02 - Hypoxemia Assessment and Plan Ms. Loza is a 66 year old female with a history of CAD s/p CABG, CHF, DM who was originally admitted to med-psych unit for suicidal ideation. She was receiving IV abx for diabetic foot ulcer. On 02/16/2017, rapid response ([facility] ) was called on this patient due to respiratory distress. Throughout the day, she required increasing amount of O2 and eventually non-rebreather. CXR showed cardiomegaly with pulmonary vascular engorgement and bilateral interstitial prominence. Patient was taken to ICU and ABG showed pH 7.32 with PCO2 69. Patient was subsequently placed on BiPAP with FiO2 40%. CT brain, MRI brain were unremarkable. EEG showed diffuse encephalopathy. - Acute respiratory failure hypercapnic. - Bilateral pneumonia - Continue supplemental O2 via NC to keep O2 sat > 90%. - Continue breathing tx, Aspiration precautions. - Continue Levofloxacin 750mg Q48hrs. - Continue Prednisone 20mg Qday. - Coronary artery disease - s/p CABG. - Continue Metoprolol 50mg Q12hrs, Aspirin 81mg, Plavix 75mg, Lipitor 40mg. - Hypertension - Continue Amlodipine 5mg Qday, Hydralazine 100mg Q8hrs. - Diabetes mellitus - Diabetic neuropathy - Continue Levemir 17 units QHS. Added Pre-meal insulin Aspart 6 units TIDAC , continue sliding scale insulin. - Will gradually increase insulin amount. - Hyperglycemia is likely due to prednisone as well. - Continue Gabapentin 600mg BID. - Patient had significant hyperglycemic episodes today requiring multiple interventions with insulin. - Will adjust insulin aggressively. - Anxiety/Depression - Continue Sertraline 25mg Qday, Quetiapine 12.5mg BID. Full code. Heparin SQ. Problem Qualifiers (1) CHF (congestive heart failure): Araseli Aguiar DO Feb 21, 2017 12:10
[2017-02-21] MEDS: INSULIN ASPART 1,000 UNITS/10 ML VIAL SQ SCH ×2 (12:12→18:02)
[2017-02-21 13:57] LABS: AUTOMATED NEUTROPHIL # 4.2 TH/MM3 (1.8-7.7); BASOPHIL % 0.1 % (0.0-2.0); HEMATOCRIT 30.1 % (35.0-46.0); HEMO FLAGS DIFF FINAL; LYMPH % 6.3 % (9.0-44.0); LYMPHOCYTE # 0.3 TH/MM3 (1.0-4.8); MEAN CELL VOLUME 85.5 FL (80.0-100.0); MEAN CORPUSCULAR HEMOGLOBIN 25.9 PG (27.0-34.0); MEAN CORPUSCULAR HGB CONC 30.3 % (32.0-36.0); MONO % 9.3 % (0.0-8.0); NEUT % 84.3 % (16.0-70.0); PLATELET COUNT 235 TH/MM3 (150-450); RED BLOOD COUNT 3.52 MIL/MM3 (4.00-5.30)
[2017-02-21 14:31] LABS: ALKALINE PHOSPHATASE 78 U/L (45-117); ALT (GPT) 30 U/L (10-53); ANION GAP 7 MEQ/L (5-15); AST (GOT) 15 U/L (15-37); BICARBONATE 31.2 MEQ/L (21.0-32.0); BLOOD UREA NITROGEN 82 MG/DL (7-18); CHLORIDE 96 MEQ/L (98-107); GLOMERULAR FILTRATION RATE 35 ML/MIN (>89); MAGNESIUM 2.7 MG/DL (1.5-2.5); POTASSIUM 4.8 MEQ/L (3.5-5.1); SODIUM (NA) 134 MEQ/L (136-145); TOTAL BILIRUBIN ADULT 0.3 MG/DL (0.2-1.0)
[2017-02-21] MEDS ORDERED: INSULIN ASPART 1,000 UNITS/10 ML VIAL SQ ONE (16:15)
[2017-02-21] MEDS ORDERED: INSULIN DETEMIR 100 UNITS/ML VIAL SQ SCH ×2 (21:00)
[2017-02-21] MEDS: ATORVASTATIN 40 MG TAB PO SCH (21:34)
[2017-02-22] VITALS: BP 128/60; PULSE 75; RESP 20; TEMP 97.4; O2SAT 96
[2017-02-22 04:00] VITALS: BP 133/75; PULSE 64; RESP 20; TEMP 97.6; O2SAT 99
[2017-02-22] MEDS: CHLORHEXIDINE GLUCONATE 2 % 1 PACK (2 CLOTHS) TOP SCH (04:00)
[2017-02-22] MEDS: hydrALAZINE HCL 100 MG TAB PO SCH ×2 (06:33→12:43)
[2017-02-22] MEDS: RESP: ALBUTEROL 2.5 MG/IPRATROPIUM 0.5 MG NEB (SCH) NEB ×2 (08:14→12:43)
[2017-02-22 08:16] VITALS: O2SAT 98
[2017-02-22 08:20] VITALS: BP 128/62; PULSE 64; RESP 18; TEMP 98.2; O2SAT 95
[2017-02-22] MEDS: METOPROLOL TARTRATE 50 MG TAB PO SCH (08:39)
[2017-02-22] MEDS: QUEtiapine FUMARATE 25 MG TAB PO SCH ×2 (08:39→12:42)
[2017-02-22] MEDS: INSULIN ASPART SUPPLEMENTAL SCALE SQ SCH ×2 (08:39→12:44)
[2017-02-22] MEDS: FAMOTIDINE 20 MG TAB PO SCH (08:39)
[2017-02-22] MEDS: INSULIN ASPART 1,000 UNITS/10 ML VIAL SQ SCH ×2 (08:39→12:43)
[2017-02-22] MEDS: ASPIRIN 81 MG CHEW TAB CHEW SCH (08:39)
[2017-02-22] MEDS: CLOPIDOGREL 75 MG TAB PO SCH (08:40)
[2017-02-22] MEDS: amLODIPine BESYLATE 5 MG TAB PO SCH (08:40)
[2017-02-22] MEDS: guaiFENesin E.R. 600 MG TAB PO SCH (08:40)
[2017-02-22] MEDS: SERTRALINE HCL 50 MG TAB PO SCH (08:40)
[2017-02-22] MEDS: GABAPENTIN 300 MG CAP PO SCH (08:40)
[2017-02-22] MEDS: HEPARIN SODIUM - SQ 10,000 UNITS/ML VIAL SQ SCH (08:41)
[2017-02-22] MEDS ORDERED: predniSONE 20 MG TAB PO SCH (09:00)
--- NOTE | 2017-02-22 09:32 | RADRPT ---
EXAM DATE/TIME: 02/22/2017 09:01 [facility] COMPARISON: CHEST SINGLE AP, February 18, 2017, 3:17. INDICATIONS : Shortness of breath. MEDICAL HISTORY : Chronic obstructive pulmonary disease. Diabetes mellitus type 2. Hypertension SURGICAL HISTORY : CABG. ENCOUNTER: Initial ACUITY: 1 day PAIN SCORE: 0/10 LOCATION: upper chest FINDINGS: Portable AP view of the chest demonstrates a normal-sized cardiac silhouette in this patient post med karel sternotomy and CABG. There are perihilar and lower lung zone interstitial opacities with linear a telectasis versus scar in the midlung zones bilaterally. No pneumothorax or pleural effusion is visua lized. Bones and soft tissues demonstrate no acute finding. CONCLUSION: Interval improvement with decreased interstitial opacities bilaterally likely representing interval i mprovement of pulmonary edema. Daniel Reyes MD on February 22, 2017 at 9:21 Board Certified Radiologist. This report was verified electronically.
[2017-02-22] MEDS ORDERED: METO-309 PO (11:36)
[2017-02-22] MEDS ORDERED: LEVA750T9 PO (11:36)
[2017-02-22] MEDS ORDERED: NOVOLOGP2 SQ (11:36)
[2017-02-22] MEDS ORDERED: LEVEMIR SQ (11:38)
[2017-02-22 13:08] VITALS: BP 124/59; PULSE 65; RESP 20; TEMP 97.7; O2SAT 97
--- NOTE | 2017-02-22 20:06 | HHI.DS ---
Discharge Summary Admission Date Feb 16, 2017 at 16:03 Discharge Date: Feb 22, 2017 Admitting Diagnosis hypoxia mental status changes (1) Unspecified psychosis ICD Code: F29 - Unspecified psychosis not due to a substance or known physiological condition (2) DEMENTIA IN OTH DISEASES CLASSD ELSWHR W/O BEHAVRL DISTURB ICD Code: F02.80 - DEMENTIA IN OTH DISEASES CLASSD ELSWHR W/O BEHAVRL DISTURB Status: Chronic (3) Encephalopathy, metabolic ICD Code: G93.41 - Metabolic encephalopathy Status: Acute (4) CHF (congestive heart failure) ICD Code: I50.9 - Heart failure, unspecified Status: Acute (5) Respiratory distress ICD Code: R06.03 - Acute respiratory distress Status: Acute (6) Hypoxia ICD Code: R09.02 - Hypoxemia Procedures R plantar midfoot ulceration approx 2cm x 1.8cm x 0.2cm depth with hyperkeratotic rim. Bleeds readily upon debridement. No purulence noted. No probe to bone noted. Assessment & Plan A/P R foot ulcer Bedside excisional debridement performed of R foot ulcer with #15 blade of all hyperkeratotic and fibrotic tissue down to healthy bleeding subcutaneous tissue. Dressing with nonadherent gauze, 4x4, cling, tape applied. Daily dressing changes per nursing with xeroform, 4x4, cling, tape No further treatment planned. Continue local wound care. Podiatry signing off- reconsult if new issues arise Ordered bilateral surgical shoes for patient. Eric Nagel DPM Brief History - From Admission 66-year-old female brought in from SNF for evaluation of suicidal ideation. was admitted to MEDICAL PSYCHIATRY and now TRANSFERRED to ICU for RESPIRATORY DISTRESS AND COPD AND CHF after [facility] was called. PATIENT WAS noted to be hypoxic and hypercapnic. limited hx from pt. medical chart reviewed. CBC/BMP: 02/21/17 1330 02/21/17 1330 Significant Findings Laboratory Tests Test 02/20/17 03:40 02/20/17 16:48 02/21/17 13:30 Red Blood Count 3.20 MIL/MM3 (4.00-5.30) 3.52 MIL/MM3 (4.00-5.30) Hemoglobin 8.8 GM/DL (11.6-15.3) 9.1 GM/DL (11.6-15.3) Hematocrit 27.1 % (35.0-46.0) 30.1 % (35.0-46.0) Red Cell Distribution Width 17.9 % (11.6-17.2) 18.0 % (11.6-17.2) Neutrophils (%) (Auto) 87.4 % (16.0-70.0) 84.3 % (16.0-70.0) Lymphocytes (%) (Auto) 8.3 % (9.0-44.0) 6.3 % (9.0-44.0) Lymphocytes # (Auto) 0.4 TH/MM3 (1.0-4.8) 0.3 TH/MM3 (1.0-4.8) Blood Urea Nitrogen 82 MG/DL (7-18) 82 MG/DL (7-18) Creatinine 1.44 MG/DL (0.50-1.00) 1.48 MG/DL (0.50-1.00) Random Glucose 281 MG/DL (74-106) 446 MG/DL (74-106) 410 MG/DL (74-106) Albumin 2.6 GM/DL (3.4-5.0) 2.6 GM/DL (3.4-5.0) Calcium Level 7.9 MG/DL (8.5-10.1) 8.2 MG/DL (8.5-10.1) Magnesium Level 2.6 MG/DL (1.5-2.5) 2.7 MG/DL (1.5-2.5) Aspartate Amino Transf (AST/SGOT) 12 U/L (15-37) Sodium Level 133 MEQ/L (136-145) 134 MEQ/L (136-145) Chloride Level 96 MEQ/L (98-107) 96 MEQ/L (98-107) Estimat Glomerular Filtration Rate 36 ML/MIN (>89) 35 ML/MIN (>89) Mean Corpuscular Hemoglobin 25.9 PG (27.0-34.0) Mean Corpuscular Hemoglobin Concent 30.3 % (32.0-36.0) Monocytes (%) (Auto) 9.3 % (0.0-8.0) Imaging Last Impressions Chest X-Ray 02/22/17 0900 Signed Impressions: Service Date/Time: Wednesday, February 22, 2017 09:01 - CONCLUSION: Interval improvement with decreased interstitial opacities bilaterally likely representing interval improvement of pulmonary edema. Daniel Reyes MD Foot MRI 02/17/17 0000 Signed Impressions: Service Date/Time: Friday, February 17, 2017 11:58 - CONCLUSION: Ulcer plantar surface of the foot, lateral side with edema base of the fifth metatarsal consistent with osteoarthritis. This does involve the insertion of the peroneus brevis tendon on the base of the fifth metatarsal. Ag Del Toro MD FACR Brain MRI 02/17/17 0000 Signed Impressions: Service Date/Time: Friday, February 17, 2017 11:48 - CONCLUSION: 1. No findings to indicate acute cortical infarct are identified. 2. Scattered areas of increased T2 signal in the white matter most consistent with mild microvascular ischemic demyelinative change. 3. There is fluid within the mastoid air cells bilaterally. Fausto Del Toro MD PE at Discharge GENERAL: More awake and alert and oriented today more talkative and cooperative not lethargic SKIN: Warm and dry. Bilateral feet dressed RIGHT FOOT DRESSED HEAD: Atraumatic. Normocephalic. EYES: Pupils equal and round. No scleral icterus. No injection or drainage. Extraocular muscles intact ENT: No nasal bleeding or discharge. Mucous membranes pink and moist. Tongue is Midline NECK: Trachea midline. No JVD. Neck is supple CARDIOVASCULAR: Regular rate and rhythm. S1-S2 no S3-S4 no heave or thrill or rub or gallop RESPIRATORY: No accessory muscle use. Clear to auscultation. Breath sounds equal bilaterally. GASTROINTESTINAL: Abdomen soft, non-tender, nondistended. Hepatic and splenic margins not palpable. MUSCULOSKELETAL: Extremities without clubbing, cyanosis, or edema. No obvious deformities. NEUROLOGICAL: Awake and alert. No obvious cranial nerve deficits. Motor grossly within normal limits. 4 out of 5 muscle strength in the arms and legs. Normal speech. PSYCHIATRIC: IAppropriate mood and affect; insight and judgment normal. Pt update on day of discharge Patient is currently doing well. No acute concerns. Blood glucose better controlled. Hospital Course Ms. Loza is a 66 year old female with a history of CAD s/p CABG, CHF, DM who was originally admitted to med-psych unit for suicidal ideation. She was receiving IV abx for diabetic foot ulcer. On 02/16/2017, rapid response ([facility] ) was called on this patient due to respiratory distress. Throughout the day, she required increasing amount of O2 and eventually non-rebreather. CXR showed cardiomegaly with pulmonary vascular engorgement and bilateral interstitial prominence. Patient was taken to ICU and ABG showed pH 7.32 with PCO2 69. Patient was subsequently placed on BiPAP with FiO2 40%. CT brain, MRI brain were unremarkable. EEG showed diffuse encephalopathy. - Acute respiratory failure hypercapnic. - Bilateral pneumonia - Continue supplemental O2 via NC to keep O2 sat > 90%. - Continue breathing tx, Aspiration precautions. - Continue Levofloxacin 750mg Q48hrs. - Continue Prednisone 20mg Qday. - Coronary artery disease - s/p CABG. - Continue Metoprolol 50mg Q12hrs, Aspirin 81mg, Plavix 75mg, Lipitor 40mg. - Hypertension - Continue Amlodipine 5mg Qday, Hydralazine 100mg Q8hrs. - Diabetes mellitus - Diabetic neuropathy - Continue Levemir 17 units QHS. Added Pre-meal insulin Aspart 6 units TIDAC , continue sliding scale insulin. - Hyperglycemia is likely due to prednisone as well. - Continue Gabapentin 600mg BID. - Will need insulin adjustment at SNF. - Anxiety/Depression - Continue Sertraline 25mg Qday, Quetiapine 12.5mg BID. Full code. Heparin SQ. Pt Condition on Discharge: Good Discharge Disposition: Discharge to SNF Discharge Time: > 30 minutes Discharge Instructions DIET: Follow Instructions for: Diabetic Diet Activities you can perform: Regular-No Restrictions Follow up Referrals: SNF/NURSING HOME/ New Medications: Insulin Aspart Inj (Novolog Inj) 1,000 Unit/10 Ml Vial 6 UNITS SQ TIDAC for Blood Sugar Management for 30 Days, INJECTION Hold If pre-meal glucose less than 110 Insulin Detemir Inj (Levemir Inj) 1,000 unit/ 10 ML Vial 17 UNITS SQ HS for Blood Sugar Management for 30 Days, INJECTION Do not mix with any other Insulin. Levofloxacin (Levaquin) 750 Mg Tablet 750 MG PO Q48H for Infection, #2 TAB First dose on 02/23/2017 Second dose 02/25/2017 Metoprolol Tartrate (Lopressor) 50 Mg Tab 50 MG PO Q12HR for Heart, #60 TAB Continued Medications: Acetaminophen (Mapap) 325 Mg Tab 650 MG PO Q4-6H PRN for PAIN 1 TO 10 AND/OR AGITATION, TAB 0 Refills Amlodipine (Amlodipine) 5 Mg Tab 5 MG PO DAILY for Blood Pressure Management, #30 TAB 0 Refills Aspirin (Aspirin) 81 Mg Chew 81 MG CHEW DAILY, TAB 0 Refills Atorvastatin (Atorvastatin) 40 Mg Tab 40 MG PO HS for Cholesterol Management, #30 TAB 0 Refills Clopidogrel (Clopidogrel) 75 Mg Tab 75 MG PO DAILY for Blood Clot Prevention, #30 TAB 0 Refills Furosemide (Furosemide) 20 Mg Tab 20 MG PO DAILY, #30 TAB 0 Refills Gabapentin (Gabapentin) 600 Mg Tab 600 MG PO TID, #90 TAB 0 Refills Hydralazine (Hydralazine) 100 Mg Tab 100 MG PO TID for Blood Pressure Management, TAB 0 Refills Take with meals Insulin Lispro (Human) Inj (Humalog Inj) 1,000 Unit/10 Ml Vial 1-9 UNITS SQ ACHS for Blood Sugar Management, #1 VIAL 0 Refills Max dose at bedtime:( )units; sugars< 70,(0)units; sugars 150-199,(1)unit; sugars 200-249,(3)units; sugars 250-299,(5)units; sugars 300-349,(7)units; sugars more than 349,(9)units. Ipratropium-Albuterol Neb (Duoneb) 0.5-2.5 Mg/3 Ml Neb 1 NEBULE INH Q8HR NEB for Breathing Treatment, #90 NEBULE 0 Refills Quetiapine (Seroquel) 25 Mg Tab 12.5 MG PO BID for health for 30 Days, #15 TAB Sertraline (Sertraline) 50 Mg Tab 50 MG PO DAILY for health, #30 TAB 0 Refills Discontinued Medications: Cefepime Inj (Cefepime Inj) 2 Gm/100 Ml Bagp 2 GM IV Q12H for Infection, BAG 0 Refills Ciprofloxacin (Ciprofloxacin) 500 Mg Tab 500 MG PO BID for Infection, TAB 0 Refills Daptomycin Inj (Cubicin Inj) 500 Mg Bag 500 MG IV Q24H for Infection, BAG 0 Refills Must dilute in appropriate IV Fluid prior to administration Insulin Detemir Inj (Levemir Inj) 1,000 unit/ 10 ML Vial 12 UNITS SQ HS for Blood Sugar Management, VIAL 0 Refills Do not mix with any other Insulin. Metoprolol Tartrate (Metoprolol Tartrate) 100 Mg Tab 100 MG PO DAILY, #30 TAB 0 Refills Araseli Aguiar DO Feb 22, 2017 20:06
== END 2017-02-22 15:07 | DRG 166 ==
LOC: HIME 16:03 → N05B 02-20 07:06
PROVIDERS: ADMIT Hospitalist; ATTEND Hospitalist
PROC: 5A09357 Assistance with Respiratory Ventilation, Less than 24 Consecutive Hours, Continuous Positive Airway Pressure (ICD-10-PCS; 2017-02-16)
PROC: 0JBQ0ZZ Excision of Right Foot Subcutaneous Tissue and Fascia, Open Approach (ICD-10-PCS; principal; 2017-02-18)
DX: J96.22 Acute and chronic respiratory failure with hypercapnia (principal); G93.41 Metabolic encephalopathy; N17.9 Acute kidney failure, unspecified; J18.9 Pneumonia, unspecified organism; E87.2 Acidosis; I11.0 Hypertensive heart disease with heart failure; M86.9 Osteomyelitis, unspecified; F03.90 Unspecified dementia, unspecified severity, without behavioral disturbance, psychotic disturbance, mood disturbance, and anxiety; I50.32 Chronic diastolic (congestive) heart failure; R45.851 Suicidal ideations; J44.0 Chronic obstructive pulmonary disease with (acute) lower respiratory infection; L97.419 Non-pressure chronic ulcer of right heel and midfoot with unspecified severity; E11.40 Type 2 diabetes mellitus with diabetic neuropathy, unspecified; E11.622 Type 2 diabetes mellitus with other skin ulcer; I25.10 Atherosclerotic heart disease of native coronary artery without angina pectoris; L97.529 Non-pressure chronic ulcer of other part of left foot with unspecified severity; L97.519 Non-pressure chronic ulcer of other part of right foot with unspecified severity; D64.9 Anemia, unspecified; N28.9 Disorder of kidney and ureter, unspecified; E78.5 Hyperlipidemia, unspecified; J96.21 Acute and chronic respiratory failure with hypoxia; E11.610 Type 2 diabetes mellitus with diabetic neuropathic arthropathy; E11.69 Type 2 diabetes mellitus with other specified complication; E11.65 Type 2 diabetes mellitus with hyperglycemia; E83.39 Other disorders of phosphorus metabolism; E11.621 Type 2 diabetes mellitus with foot ulcer; F29 Unspecified psychosis not due to a substance or known physiological condition; F32.9 Major depressive disorder, single episode, unspecified; F41.9 Anxiety disorder, unspecified; Z23 Encounter for immunization; Z79.4 Long term (current) use of insulin; Z95.1 Presence of aortocoronary bypass graft
CPT/HCPCS: 36600; 70551; 71010; 73718; 80053; 80202; 81001; 82140; 82607; 82805; 82947; 82948; 83036; 83735; 83880; 84100; 84439; 84443; 85025; 87641; 90686; 90732; 94002; 94003; 94620; 94640; 94664; 95819; J0456; J1644; J1815; J1956; J2920; J3370; J7040; J7050; J7512; Q2038